=== PATIENT | female | born 1965 ===

== ENCOUNTER 2017-06-17 09:46 | Inpatient (IN) ==
--- NOTE | 2017-06-17 10:35 | Emergency Department Note ---
Flakito Gale Manpreet, am scribing for, and in the presence of, Geronimo Barnes MD 10:21. Molly Gale Phillip K, MD, personally performed the services described in this documentation, ascribed by Vaughn Fraga in my presence, and it is both accurate and complete . Arrival - Arrival Chief Complaint: Shortness of Breath Stated Complaint: Shortness of Breath ED Nursing Triage Note: Patient complains of shortness of breath. Patient states that her blood sugar was too high. Patient also complains of left arm pain. States that it was relieved with Nitro and ASA. Was transferred to [facility] from [facility]. Blood sugar enroute was 321. Mode of Arrival: Stretcher Limitations: No Limitations Source: Patient - History of Present Illness HPI Narrative: Pt is a 51 y/o female, with PMHx of HTN, CHF, CAD, and IDDM, who was transferred from [facility] for further evaluation. Pt c/o SOB that began last night and left arm pain and CP that was relieved with NTG and ASA, but the SOB persisted. Pt had a sugar of 585, BNP of 11,632, creatinine of 2.8, and a nml troponin at [facility]. Pt was administered IV insulin and Lasix at [place]. Pt denies any cough, fever, or chills. Pt takes Lasix qd and is complaint with her medications. 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 No other pains/ complaints reported to ED. Onset (ago): hour(s) Consistency: constant Severity: moderate Severity scale (1-10): 3 Date of Last Menstrual Period: 05/25/16 Allergies/Adverse Reactions: Allergies Allergy/AdvReac Type Severity Reaction Status Date / Time No Known Allergies Allergy Verified 07/11/16 06:58 Home Medications: Home Medications Medication Instructions Recorded Confirmed Type Furosemide Tab [Lasix Tab] 20 mg PO DAILY 06/17/17 06/17/17 History Gabapentin 300 mg PO BID 06/17/17 06/17/17 History Insulin Detemir [Levemir FlexPen] 60 unit SUBCUT BEDTIME 06/17/17 06/17/17 History Review of System - Review of System 12 point system: reviewed and no additional remarkable complaints except as stated - Review of System Constitutional: Absent: chills, diaphoresis, fever Respiratory: Present: respiratory distress. Absent: cough Cardiovascular: Present: chest pain (Tight CP). Absent: dyspnea on exertion Gastrointestinal: Absent: abdominal pain, nausea, vomiting Musculoskeletal: Present: arm pain (Left arm pain) Neurological: Absent: headache, weakness Medical,Surgical,& Family Hx - Medical History Cardio: History of: CHF, Hypertension Endocrine: History of: Diabetes Mellitus (IDDM) - Social History Smoking Status: Never smoker Frequency of Alcohol Use: None Type of Drug Use: None Exam Vital Signs: Vital Signs Temperature 97.1 F L 06/17/17 09:49 Pulse Rate 80 06/17/17 09:49 Respiratory Rate 20 06/17/17 10:01 Blood Pressure 150/78 06/17/17 09:49 O2 Sat by Pulse Oximetry 100 06/17/17 09:49 - General General appearance: alert, in no apparent distress - Head Head exam: Present: atraumatic, normocephalic, normal inspection - Eye Eye exam: Present: normal appearance, PERRL, EOMI - ENT ENT exam: Present: normal exam, normal oropharynx, mucous membranes moist, TM's normal bilaterally - Neck Neck exam: Present: normal inspection, full ROM, trachea midline. Absent: tenderness, thyromegaly - Chest Chest inspection: Present: normal inspection, symmetric chest wall rise. Absent : tenderness - Respiratory Respiratory exam: Present: normal lung sounds bilaterally, rales (Bibasal rales) . Absent: accessory muscle use, respiratory distress - Cardiovascular Cardiovascular exam: Present: regular rate, normal rhythm, normal heart sounds. Absent: murmur, rubs, gallop - Abdominal Exam Abdominal exam: Present: soft, tenderness (Upper epigastric tenderness to palpation), normal bowel sounds. Absent: distention - Extremities Exam Extremities exam: Present: full ROM, other (Bilat +2 edema ). Absent: normal inspection - Back Exam Back exam: Present: normal inspection, full ROM. Absent: tenderness - Neurological Exam Neurological exam: Present: alert, oriented X3, CN II-XII intact, reflexes normal - Psychiatric Psychiatric exam: Present: normal affect, normal mood - Skin Skin exam: Present: warm, dry, intact, normal color. Absent: pallor Course Course Narrative: Accu-Chek glucose is 289. Patient discussed with the hospitalist who will admit for further evaluation. Patient apparently received Lasix at [facility] but has had no urine output since that time. She also received 10 units of Humulin R IV. Results - Labs Lab Results: I have reviewed the patients labs (I reviewed the patient's labs from [facility]. Patient had a glucose that was nonfasting 585, creatinine was 2.8, troponin was 0 and her BNP was 11,632) Labs: Laboratory Tests 06/17/17 10:42 POC Glucose 289 H - Diagnostic Findings Procedure: Chest x-ray: report reviewed by me (Cardiomegaly with slight worsening of perihilar and basilar interstitial and airspace opacities suggestive of pulmonary edema changes and basilar atelectasis. Trace pleural effusions are also suspected.) Disposition Clinical Impression: Congestive heart failure, Poorly controlled diabetes mellitus, Chest pain, Possible angina Case discussed with: patient Disposition: Still a Patient Condition: Guarded Additional Instructions: Admit to the hospitalist.
--- NOTE | 2017-06-17 10:55 | Hospitalist History & Physical ---
Assessment and Plan - Time spent with patient Time spent with patient: Greater than 30 minutes (1) Chest pain Status: Acute Assessment and plan: will admit on monitor bed. Will order PRN pain medications and repeat Troponin, EKG and labs. Current Visit: Yes (2) Congestive heart failure Status: Acute Assessment and plan: Patient verbalizes taking daily lasix. She received a dose at [facility]. Will continue her lasix and repeat a.m. labs to monitor electrolytes closely. Current Visit: Yes (3) Poorly controlled diabetes mellitus Status: Acute Assessment and plan: Will check A1c. will continue home medications and sliding scale. Current Visit: Yes History of Present Illness Chief complaint: shortness of breath, chest pain History of present illness: Ms. Myers is a very pleasant 51 year old [place] female with history of CHF, HTN, CAD, Diabetes, presented to [facility] ED as a transfer from [facility] for further evaluation for worsening of shortness of breath and chest pain with left sided arm pain that was relieved with nitro and ASA this a.m. but shortness of breath continued. Patient verbalized she went to a birthday alliance party yesterday and over ate, especially birthday cake; and started feeling poorly around midnight. AT [facility] her blood sugar was 585, BNP 11,230, Creatnine 2.8 and normal troponin; she was given IV lasix and insulin. She denies fever, chills or cough. Primary PCP: [facility]. 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 She believes she has seen Dr Baptiste for " kidney problems" before but unsure. She had an appointment to see someone in [place] for her chronic back pain/weakness issues for Saturday but missed the appointment because her "daughter went to the casino and did not want to take her to her appointment". She verbalized she can walk but uses a wheelchair because she frequently falls related to "thinning bone in her back". After discussion with Dr Barnes in the ED and Dr Blum Hospitalist Services, it was agreed that the patient would need to be admitted and further evaluated. Will review home medications and reconciliation to follow. Home Medications Medication Instructions Recorded Confirmed Type Furosemide Tab [Lasix Tab] 20 mg PO DAILY 06/17/17 06/17/17 History Gabapentin 300 mg PO BID 06/17/17 06/17/17 History Insulin Detemir [Levemir FlexPen] 60 unit SUBCUT BEDTIME 06/17/17 06/17/17 History Allergies Allergy/AdvReac Type Severity Reaction Status Date / Time No Known Allergies Allergy Verified 07/11/16 06:58 Medical,Surgical,& Family Hx - Medical History Cardio: History of: CHF, Hypertension Endocrine: History of: Diabetes Mellitus (IDDM) - Surgical History Abdominal Surgeries: Surgical HX of: Cholecystectomy Reproductive Surgeries: Surgical HX of;: Section (x5 c-sections) - Social History Smoking Status: Never smoker Frequency of Alcohol Use: None Type of Drug Use: None Lives With:: Children Functional capacity: wheelchair bound (she states she can walk but due to her issues with her back she falls frequently.) Review of systems: ROS completed and pertinent positives and negatives in HPI. Exam - Constitutional Vitals: Period Temp Pulse Resp BP Sys/[place] Pulse Ox Last 24 Hr 97.1 F 80 18-20 150/78 100 General appearance: no acute distress, over weight - Head Head exam: Present: normal inspection - Eye Eye exam: Present: EOMI Pupils: Present: DAHIANA - Neck Neck exam: Present: normal inspection - Respiratory Respiratory exam: Present: rales - Cardiovascular Cardiovascular exam: Present: regular rate and rhythm - GI/Abdominal GI/Abdominal exam: Present: normal bowel sounds, soft. Absent: tenderness, rebound - Extremities Exam Extremities exam: Present: full ROM, edema (2+ edema lower extremities) - Neurological Exam Neurological exam: Present: alert, oriented X3 - Psychiatric Psychiatric exam: Present: normal affect, normal mood - Skin Skin exam: Present: normal color, warm, dry Results - Labs Lab Results: I have reviewed the past 24 hour labs Labs: Labs from [facility] Normal troponin BNP 70825 Hct 32 WBC 7.1
--- NOTE | 2017-06-17 10:55 | XRay Report ---
Exam: XR chest 1V portable Indication: Shortness of breath, cardiomegaly Comparison study: 06/17/2017 and 07/11/2016 chest radiograph performed the [facility] Findings: Cardiac silhouette is enlarged, similar prior. There is been development of multifocal bilateral perihilar and basilar interstitial and airspace opacities suggestive of developing pulmonary edema. Multifocal infectious/inflammatory infiltrates are not excluded but favored to be less likely. Upper lobe pulmonary vasculature is apparent but not significantly engorged. Impression: Cardiomegaly with slight worsening of perihilar and basilar interstitial and airspace opacities suggestive of pulmonary edema changes and basilar atelectasis. Trace pleural effusions are also suspected. PROCEDURE INTERPRETED AT [facility] DEPARTMENT OF RADIOLOGY Final Report Signed by: Alexys Zuniga
[2017-06-17] MEDS ORDERED: GLUCAGON 1 MG VIAL IM PRN (11:16)
[2017-06-17] MEDS ORDERED: ONDANSETRON 4 MG/2 ML VIAL IV PRN (11:16)
[2017-06-17] MEDS ORDERED: DEXTROSE 50% 25 GM/50 ML VIAL IV PRN (11:16)
[2017-06-17] MEDS ORDERED: ACETAMINOPHEN 325 MG TABLET PO PRN (11:16)
[2017-06-17] MEDS ORDERED: MAGNESIUM SULF RIDER 2 GM in PREMIX 1 EACH IV PRN (11:20)
[2017-06-17] MEDS ORDERED: MAGNESIUM SULF RIDER 4 GM in PREMIX 1 EACH IV PRN (11:20)
[2017-06-17] MEDS: FUROSEMIDE 100 MG/10 ML VIAL IV SCH (16:22)
[2017-06-17] MEDS: INSULIN LISPRO 100 UNIT/ML SUBCUT SCH (17:44)
--- NOTE | 2017-06-17 18:01 | Cardiology Consult Note ---
Fletcher Gale Vanessa RN, am scribing for, and in the presence of, Stephanie Oliva DO 17 :46. Assessment and Plan - Time spent with patient Time spent with patient: Greater than 30 minutes (Due to assessment, planning, documentation, and medication review) (1) Congestive heart failure Status: Acute Assessment and plan: Acute on chronic systolic congestive heart failure with severely reduced EF 25- 30% per echocardiogram in April 2017. The patient states that she has known about this for 2-3 years and has chosen not to see cardiology. She will need a C at some time. Completely assess renal disease before knowing the risk of contrast exposure. Current Visit: Yes Qualifiers: Congestive heart failure type: combined Congestive heart failure chronicity : acute on chronic Qualified Code(s): I50.43 - Acute on chronic combined systolic (congestive) and diastolic (congestive) heart failure (2) Chest pain Status: Acute Assessment and plan: Chest pain has resolved at this time. Clinically, no findings for ACS. Current Visit: Yes (3) Poorly controlled diabetes mellitus Status: Chronic Assessment and plan: Glucose greater than 500 at [facility]. She has received IV and subcutaneous insulin. Current glucose 241. Continue SSI. Defer primary management to hospital medicine. Current Visit: Yes (4) Hypertension Status: Chronic Assessment and plan: Suboptimally controlled. Will adjust antihypertensive medication as medical condition evolves. Current Visit: Yes (5) Renal insufficiency Status: Acute Assessment and plan: Chronicity of this is unknown. Patient currently has a creatinine of 2.8. We will carefully diurese and avoid nephrotoxic agents at this time. Nephrology has also been consulted for evaluation. 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 Myers is a 51 year old female with risk factors significant for: hypertension, coronary artery disease, diabetes, obesity. Patient has a history of renal insufficiency and has seen Dr. Baptiste in the past for this. She also has a history of systolic congestive heart failure with severely reduced EF of 25-30% per echocardiogram in April 2017. Patient was admitted to [facility] earlier today as transfer from [facility] for further evaluation of shortness of breath. Patient initially presented to [facility] after she experienced significant severe shortness of breath overnight last night which kept her awake until she called EMS about 2 AM. She also reported she was having some chest pain with left arm radiation. At [facility], cardiac biomarkers were normal. BNP 11,632. Creatinine 2.8. Glucose 585. Ms. Myers reported compliance with her medication. Prior to arrival at [facility], she did receive IV Lasix and insulin at [facility]. Cardiology is now consulted for further evaluation of CHF. Ms. Myers is awake and in no acute respiratory distress this afternoon, and she is eating lunch without difficulty. Patient reports she has voided once since receiving IV Lasix at [facility]. Reports she feels better now that she is using supplemental oxygen. Denies current chest pain. Patient reports she felt fairly well and was not experiencing any shortness of breath or other complaint last night before she attended her daughter's birthday constitution party. While in attendance at her daughter's birthday constitution party, patient reports that she "just stuffed myself with food and went back for lots of seconds." Once she returned home, patient began to notice she did not feel well, felt nauseated and short of breath. This began to worsen throughout the night, and around 2 AM she called her son to take her to the hospital. Ms. Myers feels the edema of right lower extremity may be somewhat improved, but she cannot tell an improvement of left lower extremity. Bilateral lower extremities with 2-3+ pitting benjy, nontender to touch but she does report she has decreased feeling of her feet. EKG and cardiac monitoring demonstrates sinus rhythm, pulse rate 70s, no overt ectopy or dysrhythmia. BP 155/80. Oxygen saturations are 100% on 2L/NC. Tate zone troponin 2 at [facility] of 0.039 and 0.023. Glucose 241. Chest x-ray taken this morning while in [facility] ER shows cardiomegaly, pulmonary edema and bibasilar atelectasis with trace pleural effusions suspected. CC: Marcos Blmu MD - Home Medications and Allergies Home Medications: Home Medications Medication Instructions Recorded Confirmed Type Furosemide Tab [Lasix Tab] 20 mg PO DAILY 06/17/17 06/17/17 History Gabapentin 300 mg PO BID 06/17/17 06/17/17 History Insulin Detemir [Levemir FlexPen] 60 unit SUBCUT BEDTIME 06/17/17 06/17/17 History Allergies/Adverse Reactions: Allergies Allergy/AdvReac Type Severity Reaction Status Date / Time No Known Allergies Allergy Verified 07/11/16 06:58 - Constitutional Constitutional: Present: excessive sweating, frequent falls, lethargy, weakness. Absent: anorexia, chills, daytime sleepiness, fatigue, fever(s), night sweats, weight gain, weight loss - EENT Eyes: Present: blurry vision, requires corrective lense. Absent: loss of vision Ears: Absent: decreased hearing Nose, mouth and throat: Absent: dysphagia, nasal congestion, neck mass, neck pain, throat swelling, tongue swelling, vertigo - Cardiovascular Cardiovascular: Present: chest pain at rest (Chest tightness CAR SHUNTER; none currently ), dyspnea, dyspnea on exertion, edema (2-3+ pitting bilateral lower extremity edema), orthopnea, PND. Absent: diaphoresis, radiating jaw, neck or arm pain, lightheadedness, palpitations - Respiratory Respiratory: Present: dyspnea, dyspnea on exertion. Absent: cough, hemoptysis, pain on inspiration, change in phlegm color - Gastrointestinal Gastrointestinal: Absent: abdominal pain, constipation, diarrhea, dysphagia, early satiety, heartburn, hematemesis, melena, nausea, vomiting, jaundice - Genitourinary Genitourinary: Absent: dysuria, flank pain, hematuria - Musculoskeletal Musculoskeletal: Present: arthralgias, back pain, myalgias. Absent: limited range of motion - Neurological Neurological: Absent: abnormal gait, abnormal speech, confusion, convulsions, dizziness, frequent falls, syncope, tremor(s) - Psychiatric Psychiatric: Absent: anxiety, depression - Endocrine Endocrine: Absent: cold intolerance, heat intolerance - Hematologic/Lymphatic Hematologic/Lymphatic: Absent: easy bleeding, easy bruising Medical,Surgical,& Family Hx - Medical History Cardio: History of: CHF, Hypertension No history of: OR, Pacemaker, PVD Neurology: No history of: Dementia, Seizures, TIA Endocrine: History of: Diabetes Mellitus (IDDM) No history of: Dyslipidemia, Thyroid Disorder Respiratory: No history of: COPD, Obstructive Sleep Apnea, Pulmonary Hypertension Genitourinary: No history of: Kidney Stones Gastrointestinal: No history of: GERD, Gastrointestinal Bleed, Hematochezia, Hepatitis Musculoskeletal: History of: Back/Neck Problems (pt states she has a "thinning bone in her back") Hematology: No history of: Anemia, Blood Transfusion Reaction, Clotting Problems Reproductive: No history of: Breast Cancer Other: No history of: Cancer, HIV - Surgical History Cardiac Surgeries: Patient Denies: Cardiac Catheterization Thoracic Surgeries: Patient denies;: Kidney (Renal Surgery) HEENT Surgeries: Patient denies: Carotid Endarterectomy Abdominal Surgeries: Surgical HX of: Cholecystectomy Reproductive Surgeries: Surgical HX of;: Section (x5 c-sections) Orthopedic Surgeries: Patient denies;: Implanted Devices - Social History Smoking Status: Never smoker Frequency of Alcohol Use: None Type of Drug Use: None Lives With:: Children Functional capacity: wheelchair bound (Reports she is able to walk but loses her balance frequently due to back problems) Physical Examination Vital Signs Temp Pulse Resp BP Pulse Ox 97.1 F L 80 18 150/78 100 06/17/17 09:49 06/17/17 09:49 06/17/17 09:49 06/17/17 09:49 06/17/17 09:49 General: Present: No Apparent Distress, Other (Obese) HEENT: Present: PERRL, Normocephaly. Absent: Jaundice, Oral Lesions Neck: Present: Supple Neck, Midline Trachea, No JVD/HJR, No Bruit Cardiac: Present: Reg Rate and Rhythm, No Murmur. Absent: Tachycardia, Bradycardia Lungs: Present: Bibasilar Rales, No Wheezes, No Rhonchi Neuro: Present: Grossly Intact. Absent: Numbness, Tingling, Weakness, Resting Tremor, Essential Tremor Abdomen: Present: Soft, Active Bowel Sounds (Obese), No Masses, Other. Absent: Ascites, Tender, Firm, Distended Skin: Present: Clear. Absent: Rash, Suspicious Lesions Musculoskeletal: Present: Decreased Range of Motion Extremities: Present: No Clubbing, No Cyanosis, Normal Upper Extr. Pulses (3+ bilaterally), Normal Lower Extr. Pulses (2+ bilaterally), Edema (2-3+ pitting edema of bilateral lower extremity with RLE slightly greater than L LE), Capillary Refill (Normal), Other (Warm, dry) Result/EKG - Labs Lab Results: I have reviewed the past 24 hour labs Labs: Laboratory Results - last 24 hr 06/17/17 06/17/17 06/17/17 10:42 12:48 12:49 POC Glucose 289 H 241 H Troponin I 0.023 - Diagnostic Findings Procedure: Chest x-ray: image reviewed by me, report reviewed by me - EKG EKG results: interpreted by me, no acute changes EKG shows: sinus rhythm Hazel Gale Shea, DO, personally performed the services described in this documentation, ascribed by Savana Bynum RN in my presence, and it is both accurate and complete .
[2017-06-17] MEDS: GABAPENTIN 300 MG CAPSULE PO SCH (21:06)
[2017-06-17] MEDS: CARVEDILOL 3.125 MG TABLET PO SCH (21:06)
[2017-06-17] MEDS: INSULIN GLARGINE 100 UNIT/ML SUBCUT SCH (22:11)
[2017-06-18 00:56] LABS: Basophils % 0.3 % (0.0-0.8); Eosinophils # 0.3 10*3/uL (0.0-0.87); Eosinophils % 2.7 % (0.00-10.9); Hematocrit 25.6 VOL% (35.7-47.0); Hemoglobin 8.9 GM/DL (12.0-16.0); Immature Granulocytes % 0.5 %; Immature Granulocytes Absolute 0.05 #; Lymphocytes # 2.6 10*3/uL (1.4-4.0); Lymphocytes % 25.1 % (21.3-54.2); Mean Corpuscular HGB Conc 34.8 GM/DL (32-36); Mean Corpuscular Hemoglobin 30 PG (27-34); Mean Platelet Volume 9.5 FL (9.6-12.0); Monocytes # 0.5 10*3/uL (0.11-0.8); Monocytes % 4.8 % (1.7-12.7); Neutrophils % 66.6 % (38.7-73.9); Platelet Count 211 T/CUMM (130-400); Red Blood Count 3.01 MC/CUMM (3.8-5.5); White Blood Count 10.4 T/CUMM (4-12)
[2017-06-18 01:24] LABS: Alanine Aminotransferase 12 U/L (13-56); Albumin 2.1 G/DL (3.4-5.0); Alkaline Phosphatase 150 U/L (45-117); Aspartate Amino Transferase 13 U/L (0-37); Bilirubin,Total < 0.39 MG/DL (0.2-1.0); Blood Urea Nitrogen 35 MG/DL (7-18); Calcium 8.1 MG/DL (8.5-10.1); Glucose 123 MG/DL (74-106); Potassium 3.8 MMOL/L (3.5-5.1); Sodium 136 MMOL/L (136-145); Total Protein 5.8 G/DL (6.4-8.3)
[2017-06-18 01:26] LABS: Magnesium 2.3 MG/DL (1.8-2.4); Risk Ratio 2.86; VLDL CHOLESTEROL 20.6 MG/DL
--- NOTE | 2017-06-18 06:01 | EKG Report ---
Stationary ECG Study [facility] ER Test Date: 06/17/2017 11:28:55 AM Pat Name: JUAN CATALAN Department: Room: 425 Gender: F Tower Watchman: : 1965 Requested by: Geronimo Bonilla Order Number: [id number] Reading MD: GREGORIO MCBRIDE Intervals [place] Rate: 71 P: 6 ID: 148 QRS: 9 QRSD: 92 T: 54 QT: 411 QTc: 433 Interpretive Statements SINUS RHYTHM NONSPECIFIC T-WAVE ABNORMALITY Electronically Signed On 06-18-17 11:31:21 CDT by GREGORIO MCBRIDE [email or web address]
--- NOTE | 2017-06-18 07:24 | EKG Report ---
Stationary ECG Study [facility] Test Date: 06/18/2017 7:26:20 AM Pat Name: JUAN CATALAN Department: Room: 425 Gender: F Senior Management Consultant: : 1965 Requested by: Sandra Soto Order Number: [id number] Reading MD: GREGORIO MCBRIDE Intervals [place] Rate: 79 P: 38 MD: 149 QRS: 48 QRSD: 89 T: 89 QT: 444 QTc: 479 Interpretive Statements SINUS RHYTHM NONSPECIFIC T-WAVE ABNORMALITY PROLONGED QT INTERVAL Electronically Signed On 06-18-17 11:47:19 CDT by GREGORIO MCBRIDE [email or web address]
[2017-06-18] MEDS: INSULIN LISPRO 100 UNIT/ML SUBCUT SCH ×2 (07:35→16:30)
[2017-06-18] MEDS ORDERED: FUROSEMIDE 20 MG TABLET PO SCH (09:00)
[2017-06-18] MEDS: GABAPENTIN 300 MG CAPSULE PO SCH ×2 (09:34→20:13)
[2017-06-18] MEDS: CARVEDILOL 3.125 MG TABLET PO SCH ×2 (09:34→20:13)
[2017-06-18] MEDS: FUROSEMIDE 100 MG/10 ML VIAL IV SCH (09:34)
[2017-06-18] MEDS: PANTOPRAZOLE 40 MG TABLET PO SCH (09:34)
[2017-06-18] MEDS: ASPIRIN CHEW 81 MG TABLET PO SCH (09:36)
--- NOTE | 2017-06-18 10:03 | Cardiology Progress Note ---
Fletcher Gale Vanessa RN, am scribing for, and in the presence of, Stephanie Oliva DO 10 :02. Assessment and Plan - Time spent with patient Time spent with patient: Greater than 30 minutes (1) Congestive heart failure Status: Chronic Assessment and plan: Acute on chronic systolic congestive heart failure with severely reduced EF 25- 30% per echocardiogram in April 2017. Current Visit: Yes Qualifiers: Congestive heart failure type: combined Congestive heart failure chronicity : acute on chronic Qualified Code(s): I50.43 - Acute on chronic combined systolic (congestive) and diastolic (congestive) heart failure (2) Chest pain Status: Chronic Assessment and plan: Chest pain has resolved at this time. Clinically, no findings for ACS. Current Visit: Yes (3) Poorly controlled diabetes mellitus Status: Chronic Assessment and plan: Glucose greater than 500 at [facility]. She has received IV and subcutaneous insulin. Current glucose 241. Continue SSI. Defer primary management to hospital medicine. Current Visit: Yes (4) Hypertension Status: Chronic Assessment and plan: Suboptimally controlled. Will adjust antihypertensive medication as medical condition evolves. Current Visit: Yes (5) Renal insufficiency Status: Acute Assessment and plan: Chronicity of this is unknown. We will carefully diurese and avoid nephrotoxic agents at this time. Nephrology has also been consulted for evaluation. 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 Myers is a 51 year old female with risk factors significant for: hypertension, coronary artery disease, diabetes, obesity. Patient has a history of renal insufficiency and has seen Dr. Baptiste in the past for this. She also has a history of systolic congestive heart failure with severely reduced EF of 25-30% per echocardiogram in April 2017. Patient was admitted to [facility] earlier today as transfer from [facility] for further evaluation of shortness of breath. Patient initially presented to [facility] after she experienced significant severe shortness of breath overnight last night which kept her awake until she called EMS about 2 AM. She also reported she was having some chest pain with left arm radiation. At [facility], cardiac biomarkers were normal. BNP 11,632. Creatinine 2.8. Glucose 585. Ms. Myers reported compliance with her medication. Prior to arrival at [facility], she did receive IV Lasix and insulin at [facility]. Cardiology is now consulted for further evaluation of CHF. May: Ms. Myers has no complaints this morning. I saw and examined with Fletcher. I talked to her briefly and introduce the idea of left heart catheterization selective coronary angiography and possible percutaneous coronary mention. She will need this at some point. Her creatinine is elevated and this appears to be chronic however I would like to ensure that the chronicity of this before proposing left heart catheterization. If his acute I certainly would wait. Her renal ultrasound is pending. Input from nephrology is pending. The patient looks quite stable. She had many questions about left heart catheterization and she seemed reluctant to proceed. I told her that I would readdress again once we determined the chronicity and stability of her renal insufficiency. No further changes at this point. Exam (Progress Note) - Constitutional Vitals: Period Temp Pulse Resp BP Sys/[place] Pulse Ox Last 24 Hr 96.0 F-98.7 F 70-80 16-20 117-158/55-84 94-100 Exam: General: Present: No Apparent Distress, Other (Obese) HEENT: Present: PERRL, Normocephaly. Absent: Jaundice, Oral Lesions Neck: Present: Supple Neck, Midline Trachea, No JVD/HJR, No Bruit Cardiac: Present: Reg Rate and Rhythm, No Murmur. Absent: Tachycardia, Bradycardia Lungs: Present: Bibasilar Rales, No Wheezes, No Rhonchi Neuro: Present: Grossly Intact. Absent: Numbness, Tingling, Weakness, Resting Tremor, Essential Tremor Abdomen: Present: Soft, Active Bowel Sounds (Obese), No Masses, Other. Absent: Ascites, Tender, Firm, Distended Skin: Present: Clear. Absent: Rash, Suspicious Lesions Musculoskeletal: Present: Decreased Range of Motion Extremities: Present: No Clubbing, No Cyanosis, Normal Upper Extr. Pulses (3+ bilaterally), Normal Lower Extr. Pulses (2+ bilaterally), Edema, Capillary Refill (Normal), Other (Warm, dry) Result/EKG - Labs CBC & BMP: 06/18/17 00:49 06/18/17 00:49 Lab Results: I have reviewed the past 24 hour labs Labs: Laboratory Results - last 24 hr 06/17/17 06/17/17 06/17/17 10:42 12:48 12:49 WBC RBC Hgb Hct MCV MCH MCHC RDW Plt Count MPV Neut % (Auto) Lymph % (Auto) [place] % (Auto) Eos % (Auto) Baso % (Auto) Neut # (Auto) Lymph # (Auto) [place] # (Auto) Eos # (Auto) Baso # (Auto) Immature Gran % Nucleated RBC % Immature Gran # Nucleated RBCs # Sodium Potassium Chloride Carbon Dioxide Anion Gap BUN Creatinine GFR Calculation BUN/Creatinine Ratio Glucose POC Glucose 289 H 241 H Hemoglobin A1c Calculated Osmolality Calcium Magnesium Total Bilirubin AST ALT Alkaline Phosphatase Troponin I 0.023 B-Natriuretic Peptide Total Protein Albumin Globulin Albumin/Globulin Ratio Triglycerides Cholesterol LDL Cholesterol VLDL Cholesterol HDL Cholesterol Heart Disease Risk Ratio 06/17/17 06/17/17 06/17/17 17:40 18:21 18:43 WBC RBC Hgb Hct MCV MCH MCHC RDW Plt Count MPV Neut % (Auto) Lymph % (Auto) [place] % (Auto) Eos % (Auto) Baso % (Auto) Neut # (Auto) Lymph # (Auto) [place] # (Auto) Eos # (Auto) Baso # (Auto) Immature Gran % Nucleated RBC % Immature Gran # Nucleated RBCs # Sodium Potassium Chloride Carbon Dioxide Anion Gap BUN Creatinine GFR Calculation BUN/Creatinine Ratio Glucose POC Glucose 236 H 229 H Hemoglobin A1c Calculated Osmolality Calcium Magnesium Total Bilirubin AST ALT Alkaline Phosphatase Troponin I 0.027 B-Natriuretic Peptide Total Protein Albumin Globulin Albumin/Globulin Ratio Triglycerides Cholesterol LDL Cholesterol VLDL Cholesterol HDL Cholesterol Heart Disease Risk Ratio 06/18/17 06/18/17 06/18/17 00:49 00:49 00:49 WBC 10.4 RBC 3.01 L Hgb 8.9 L Hct 25.6 L MCV 85.0 L MCH 30 MCHC 34.8 RDW 13.0 Plt Count 211 MPV 9.5 L Neut % (Auto) 66.6 Lymph % (Auto) 25.1 [place] % (Auto) 4.8 Eos % (Auto) 2.7 Baso % (Auto) 0.3 Neut # (Auto) 7.0 Lymph # (Auto) 2.6 [place] # (Auto) 0.5 Eos # (Auto) 0.3 Baso # (Auto) 0.0 Immature Gran % 0.5 Nucleated RBC % 0.0 Immature Gran # 0.05 Nucleated RBCs # 0.00 Sodium Potassium Chloride Carbon Dioxide Anion Gap BUN Creatinine GFR Calculation BUN/Creatinine Ratio Glucose POC Glucose Hemoglobin A1c Calculated Osmolality Calcium Magnesium 2.3 Total Bilirubin AST ALT Alkaline Phosphatase Troponin I 0.030 B-Natriuretic Peptide Total Protein Albumin Globulin Albumin/Globulin Ratio Triglycerides 103 Cholesterol 189 LDL Cholesterol 103.0 VLDL Cholesterol 20.6 HDL Cholesterol 66 H Heart Disease Risk Ratio 2.86 06/18/17 06/18/17 06/18/17 00:49 00:49 00:49 WBC RBC Hgb Hct MCV MCH MCHC RDW Plt Count MPV Neut % (Auto) Lymph % (Auto) [place] % (Auto) Eos % (Auto) Baso % (Auto) Neut # (Auto) Lymph # (Auto) [place] # (Auto) Eos # (Auto) Baso # (Auto) Immature Gran % Nucleated RBC % Immature Gran # Nucleated RBCs # Sodium 136 Potassium 3.8 Chloride 103 Carbon Dioxide 27 Anion Gap 9.8 BUN 35 H Creatinine 2.70 H GFR Calculation 24 BUN/Creatinine Ratio 12.00 Glucose 123 H POC Glucose Hemoglobin A1c 10.9 H Calculated Osmolality 280.0 Calcium 8.1 L Magnesium Total Bilirubin < 0.39 AST 13 ALT 12 L Alkaline Phosphatase 150 H Troponin I B-Natriuretic Peptide 265 H Total Protein 5.8 L Albumin 2.1 L Globulin 3.7 H Albumin/Globulin Ratio 0.5 L Triglycerides Cholesterol LDL Cholesterol VLDL Cholesterol HDL Cholesterol Heart Disease Risk Ratio 06/18/17 07:20 WBC RBC Hgb Hct MCV MCH MCHC RDW Plt Count MPV Neut % (Auto) Lymph % (Auto) [place] % (Auto) Eos % (Auto) Baso % (Auto) Neut # (Auto) Lymph # (Auto) [place] # (Auto) Eos # (Auto) Baso # (Auto) Immature Gran % Nucleated RBC % Immature Gran # Nucleated RBCs # Sodium Potassium Chloride Carbon Dioxide Anion Gap BUN Creatinine GFR Calculation BUN/Creatinine Ratio Glucose POC Glucose 103 Hemoglobin A1c Calculated Osmolality Calcium Magnesium Total Bilirubin AST ALT Alkaline Phosphatase Troponin I B-Natriuretic Peptide Total Protein Albumin Globulin Albumin/Globulin Ratio Triglycerides Cholesterol LDL Cholesterol VLDL Cholesterol HDL Cholesterol Heart Disease Risk Ratio - EKG EKG results: interpreted by me, no acute changes EKG shows: sinus rhythm IHazel Shea, , personally performed the services described in this documentation, ascribed by Savana Bynum RN in my presence, and it is both accurate and complete .
--- NOTE | 2017-06-18 10:51 | Ultrasound Report ---
History: Renal insufficiency Date: 06/18/2017 Study: Renal ultrasound bilateral, kidneys only Comparison exam: November 20, 2014 renal ultrasound Real-time ultrasound images are captured and archived. The right kidney measures 10.2 x 4.2 x 4.9 cm; the left measures 9.9 x 4.7 x 4.4 cm. The renal parenchyma is hyperechoic to the hepatic parenchyma. There is no focal renal mass or cyst. There is no hydronephrosis or abnormal perinephric fluid. There is gross color Doppler flow to either kidney. Impression: Normal renal ultrasound without significant interval change PROCEDURE INTERPRETED AT [facility] DEPARTMENT OF RADIOLOGY Final Report Signed by: Dr. Polina Valles
--- NOTE | 2017-06-18 12:12 | Hospitalist Progress Note ---
Assessment and Plan (1) Congestive heart failure Status: Chronic Assessment and plan: Patient was admitted to the hospital with pulmonary edema. This has improved after some aggressive diuresis in the last [address] Kimball discussed coronary arteriogram with the patient and I reviewed his discussion with her. Her understanding of the arteriogram was very basic and I was able to give her some additional information concerning aware of the catheter will be inserted and what information that she would benefit from. The patient continues on diuresis today and I am going to reduce frequency of the Lasix to once daily. Will recheck electrolytes tomorrow. Nephrology consultation still pending. Current Visit: Yes Qualifiers: Congestive heart failure type: combined Congestive heart failure chronicity : acute on chronic Qualified Code(s): I50.43 - Acute on chronic combined systolic (congestive) and diastolic (congestive) heart failure (2) Poorly controlled diabetes mellitus Status: Chronic Current Visit: Yes (3) Hypertension Status: Chronic Current Visit: Yes (4) Renal insufficiency Status: Acute Current Visit: Yes Hospitalist: Subjective Interval history: The patient has less shortness of breath today. She is not complaining of chest pain. The patient states that when she was short of breath yesterday she had some palpitation. She is not having palpitation today. Exam - Constitutional Vitals: Period Temp Pulse Resp BP Sys/[place] Pulse Ox Last 24 Hr 96.0 F-98.8 F 70-83 16-20 117-158/55-84 94-100 Exam: Constitutional System: Mild distress. No tremulousness. Head: Normocephalic, atraumatic. Ears, Nose and Throat System: No evidence of Otitis or Mastoiditis. No epistaxis or discharge Eyes System: Pupils equal, round, and reactive. Extraocular muscles intact. Neck: Supple, without adenopathy, 1+ jugular venous distention. No thyromegaly , neck mass, or prior surgery apparent. Respiratory System: Chest few rales in bases to auscultation. Cardiovascular System: Heart with regular rate and rhythm. No murmur. GI System: Abdomen soft, nontender. Normo active bowel sounds present. Musculoskeletal System: limbs with no pedal edema. Full distal pulses. Neurological System: No discernable sensory deficit. No aphasia Psychiatric System: Conversation is rational Results - Labs CBC & BMP: 06/18/17 00:49 06/18/17 00:49 Lab Results: I have reviewed the past 24 hour labs
--- NOTE | 2017-06-18 14:45 | Nephrology Consult Note ---
History of Present Illness Chief complaint: Increased BUN and creatinine in a patient with heart failure History of present illness: Ms. Myers is a 51 year old female who was admitted on 06/17/2017 with complaints of shortness of breath. Patient states her shortness of breath started a few days prior to admission. She states that started when she is sitting up and this worsened with exertion although she does not exert herself very much as she is wheelchair bound. The patient has had some associated cough. She denies fever or chills. The patient states about a month ago she was in the hospital and developed some similar complaints with swelling in her lower extremities as well as some associated shortness of breath. Patient has a known ejection fraction of around 25% by echocardiogram. The patient also has a history of chronic renal disease her creatinine was around 1.5-1.7 mg/dL 2 years ago. The patient was also seen by Dr. Baptiste recently. The patient has about a 5 year history of diabetes, she denies hypertension. The patient thinks that she overindulged and fluid intake over the weekend and feels that this made her short of breath. ROS: Head -positive headaches ENT -positive sore throat Lymphatics - denies lymphadenopathy Hematology - denies bleeding problems Heart - denies chest pain Lungs -positive shortness of breath Abdomen - denies abdominal pain Musculoskeletal -positive arthritis Skin - denies rash Neurology - denies stroke General - denies fever PE: General: in no acute distress Eyes: Pupils are round and reactive, conjunctivae are clear ENT: Nose is clear, O/P is benign Neck: Supple, no thyromegaly Lymphatics: No cervical, supraclavicular or axillary adenopathy Heart: Regular rate and rhythm, 2+ pretibial edema Lungs: Clear to auscultation anteriorly, chest expansion symmetric Abdomen: Soft, normoactive bowel sounds, no hepatomegaly Musculoskeletal: No joint erythema or effusions or joint asymmetry Skin: Normal turgor, normal hydration, no rash Neuro/Psych: Alert and cooperative with fair insight Home Medications Medication Instructions Recorded Confirmed Type Furosemide Tab [Lasix Tab] 20 mg PO DAILY 06/17/17 06/17/17 History Gabapentin 300 mg PO BID 06/17/17 06/17/17 History Insulin Detemir [Levemir FlexPen] 60 unit SUBCUT BEDTIME 06/17/17 06/17/17 History Allergies Allergy/AdvReac Type Severity Reaction Status Date / Time No Known Allergies Allergy Verified 07/11/16 06:58 Medical,Surgical,& Family Hx - Medical History Cardio: History of: CHF, Hypertension No history of: [place], Pacemaker, PVD Neurology: No history of: Dementia, Seizures, TIA Endocrine: History of: Diabetes Mellitus (IDDM) No history of: Dyslipidemia, Thyroid Disorder Respiratory: No history of: COPD, Obstructive Sleep Apnea, Pulmonary Hypertension Genitourinary: No history of: Kidney Stones Gastrointestinal: No history of: GERD, Gastrointestinal Bleed, Hematochezia, Hepatitis Musculoskeletal: History of: Back/Neck Problems (pt states she has a "thinning bone in her back") Hematology: No history of: Anemia, Blood Transfusion Reaction, Clotting Problems Reproductive: No history of: Breast Cancer Other: No history of: Cancer, HIV - Surgical History Cardiac Surgeries: Patient Denies: Cardiac Catheterization, Carotid Endarterectomy Thoracic Surgeries: Patient denies;: Kidney (Renal Surgery) HEENT Surgeries: Patient denies: Carotid Endarterectomy Abdominal Surgeries: Surgical HX of: Cholecystectomy Reproductive Surgeries: Surgical HX of;: Section (x5 c-sections) Orthopedic Surgeries: Patient denies;: Implanted Devices - Family History Family History: Reports;: Family Diabetes, Family Hypertension Additional Family History: End-stage renal disease - Social History Smoking Status: Never smoker Frequency of Alcohol Use: None Type of Drug Use: None Exam - Vital Signs Vital signs: Period Temp Pulse Resp BP Sys/[place] Pulse Ox Last 24 Hr 96.2 F-98.8 F 70-83 16-20 117-148/55-71 94-100 Results - Labs CBC & BMP: 06/18/17 00:49 06/18/17 00:49 Assessment and Plan (1) Chronic kidney disease Status: Acute Assessment and plan: This patient's creatinine is 2.7 mg/dL he was around 1.7 mg/dL 2 years ago, I am going to try and get [facility] past 6 months to a year. I suspect she has chronic renal insufficiency stage III disease. Current Visit: Yes (2) Diabetes mellitus Status: Acute Current Visit: Yes (3) Congestive heart failure Status: Chronic Assessment and plan: I agree with the present diuresis. Regarding her heart catheter think it would be best to try on get her out of heart failure first. If he does have a heart cath I think we would do well to hold her diuretics and give her some IV fluids at a cc per KG starting about 12 hours before the proposed procedure and continue them for about 6-8 hours post procedure. I would also give her Mucomyst 600 mg p.o. twice daily 2 doses before and 2 doses after the procedure. Current Visit: Yes Qualifiers: Congestive heart failure type: combined Congestive heart failure chronicity : acute on chronic Qualified Code(s): I50.43 - Acute on chronic combined systolic (congestive) and diastolic (congestive) heart failure (4) Anemia Status: Acute Assessment and plan: Patient's hematocrits around 25% Current Visit: Yes (5) Cardiomyopathy Status: Acute Assessment and plan: Patient's ejection fraction was known to be around 25% Current Visit: Yes
[2017-06-18] MEDS: INSULIN GLARGINE 100 UNIT/ML SUBCUT SCH (20:16)
[2017-06-19 05:26] LABS: Calcium 7.4 MG/DL (8.5-10.1); Magnesium 2.5 MG/DL (1.8-2.4); Osmolality,Calculated 290.8 MOS/KG (273-304)
--- NOTE | 2017-06-19 08:58 | Nephrology Progress Note ---
Nephrology - PN: Subj Interval history: Patient states she is breathing better. Review of systems GI she denies nausea or vomiting Physical exam general patient chronically ill-appearing, she has 1+ pretibial edema Assessment/plan 1. Acute renal failure-patient's creatinine is increased from 2.8 mg/dL to 3.1 mg/dL today, I suspect this is related to her needed diuresis in the face of her poor heart function with an ejection fraction of around 25%. Her Lasix was decreased yesterday. It is difficult to say whether back off her Lasix further today we will continue her diuresis. I will check a chest x- ray and see if this helps us. Will also try and get her weight today and monitor her I/O's better. 2. Cardiomyopathy 3. Anemia-patient's hematocrits 26%, it may be worth transfusing her couple units of blood pending the results of her chest x-ray. Exam (PN)-Nephrology - Vital Signs Vital signs: Period Temp Pulse Resp BP Sys/[place] Pulse Ox Last 24 Hr 97.8 F-98.8 F 69-83 20-20 119-187/60-86 93-98 - Lab 06/18/17 00:49 06/19/17 04:04 Most recent lab results Calcium 7.4 MG/DL (8.5-10.1) L 06/19/17 04:04 Magnesium 2.5 MG/DL (1.8-2.4) H 06/19/17 04:04 Assessment and Plan (1) Chronic kidney disease Status: Acute Assessment and plan: This patient's creatinine is 2.7 mg/dL he was around 1.7 mg/dL 2 years ago, I am going to try and get some lab from the [facility] from past 6 months to a year. I suspect she has chronic renal insufficiency stage III disease. Current Visit: Yes (2) Diabetes mellitus Status: Acute Current Visit: Yes (3) Congestive heart failure Status: Chronic Assessment and plan: I agree with the present diuresis. Regarding her heart catheter think it would be best to try on get her out of heart failure first. If he does have a heart cath I think we would do well to hold her diuretics and give her some IV fluids at a cc per KG starting about 12 hours before the proposed procedure and continue them for about 6-8 hours post procedure. I would also give her Mucomyst 600 mg p.o. twice daily 2 doses before and 2 doses after the procedure. Current Visit: Yes Qualifiers: Congestive heart failure type: combined Congestive heart failure chronicity : acute on chronic Qualified Code(s): I50.43 - Acute on chronic combined systolic (congestive) and diastolic (congestive) heart failure (4) Anemia Status: Acute Assessment and plan: Patient's hematocrits around 25% Current Visit: Yes (5) Cardiomyopathy Status: Acute Assessment and plan: Patient's ejection fraction was known to be around 25% Current Visit: Yes
[2017-06-19] MEDS: GABAPENTIN 300 MG CAPSULE PO SCH ×2 (10:01→20:22)
[2017-06-19] MEDS: FUROSEMIDE 100 MG/10 ML VIAL IV SCH (10:01)
[2017-06-19] MEDS: PANTOPRAZOLE 40 MG TABLET PO SCH (10:01)
[2017-06-19] MEDS: ASPIRIN CHEW 81 MG TABLET PO SCH (10:01)
[2017-06-19] MEDS: CARVEDILOL 3.125 MG TABLET PO SCH ×2 (10:01→20:22)
[2017-06-19] MEDS: INSULIN LISPRO 100 UNIT/ML SUBCUT SCH ×2 (10:04→18:31)
--- NOTE | 2017-06-19 10:49 | XRay Report ---
XR chest 2V Indication: Shortness of breath Comparison: 17 June 2017 Findings: The heart and mediastinum are stable in size and configuration. The pulmonary vascularity is slightly increased with bilateral increased interstitial lung density. No other lung infiltrates, effusions, pneumothorax or other abnormality is demonstrated. Impression: Findings suggest mild cardiac decompensation. PROCEDURE INTERPRETED AT [facility] DEPARTMENT OF RADIOLOGY Final Report Signed by: Dr. Curt Fountain
--- NOTE | 2017-06-19 12:00 | Cardiology Progress Note ---
Fletcher Gale Vanessa RN, am scribing for, and in the presence of, Stephanie Oliva, DO 12 :00. Assessment and Plan - Time spent with patient Time spent with patient: Greater than 30 minutes (1) Congestive heart failure Status: Chronic Assessment and plan: Acute on chronic systolic congestive heart failure with severely reduced EF 25- 30% per echocardiogram in April 2017. As per HPI. This is a very high risk situation the patient is reluctant to proceed. It may be that she is best discharged home and is electively as an outpatient once her comorbidities have stabilized Current Visit: Yes Qualifiers: Congestive heart failure type: combined Congestive heart failure chronicity : acute on chronic Qualified Code(s): I50.43 - Acute on chronic combined systolic (congestive) and diastolic (congestive) heart failure (2) Chest pain Status: Chronic Assessment and plan: Chest pain has resolved at this time. Clinically, no findings for ACS. Current Visit: Yes (3) Poorly controlled diabetes mellitus Status: Chronic Assessment and plan: Glucose greater than 500 at [facility]. She has received IV and subcutaneous insulin. Current glucose 241. Continue SSI. Defer primary management to hospital medicine. Current Visit: Yes (4) Hypertension Status: Chronic Assessment and plan: Suboptimally controlled. Will adjust antihypertensive medication as medical condition evolves. Current Visit: Yes (5) Renal insufficiency Status: Acute Assessment and plan: Chronicity of this is unknown. Patient currently has a creatinine of 2.8. We will carefully diurese and avoid nephrotoxic agents at this time. Nephrology has also been consulted for evaluation. 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 Myers is a 51 year old female with risk factors significant for: hypertension, coronary artery disease, diabetes, obesity. Patient has a history of renal insufficiency and has seen Dr. Baptiste in the past for this. She also has a history of systolic congestive heart failure with severely reduced EF of 25-30% per echocardiogram in April 2017. Patient was admitted to [facility] earlier today as transfer from [facility] for further evaluation of shortness of breath. Patient initially presented to [facility] after she experienced significant severe shortness of breath overnight last night which kept her awake until she called EMS about 2 AM. She also reported she was having some chest pain with left arm radiation. At [facility], cardiac biomarkers were normal. BNP 11,632. Creatinine 2.8. Glucose 585. Ms. Myers reported compliance with her medication. Prior to arrival at [facility], she did receive IV Lasix and insulin at [facility]. Cardiology is now consulted for further evaluation of CHF. May: Ms. Myers is feeling overall better this morning. Awake and alert, and family members are present with her at bedside. No chest pain and reports her shortness of breath continues to improve. Again discussed heart catheterization procedure with patient including risks, benefits, alternatives. She is hesitant at this area, and she wants to think it over today. Labs reviewed, and it is noted that her creatinine has trended upward and is 3.1 today. Vitals are stable with SBP ranging 120-140 mmHg. Cardiac monitoring demonstrates sinus rhythm with no overt ectopy or dysrhythmia. Electrolytes are within acceptable range. Bilateral lower extremity edema continues to improve. Continue to follow her creatinine. We will hold her n.p.o. tonight. I doubt she will be ready for tomorrow. Exam (Progress Note) - Constitutional Vitals: Period Temp Pulse Resp BP Sys/[place] Pulse Ox Last 24 Hr 97.8 F-98.8 F 69-83 20-20 119-187/60-86 93-98 Exam: General: Present: No Apparent Distress, Other (Obese) HEENT: Present: PERRL, Normocephaly. Absent: Jaundice, Oral Lesions Neck: Present: Supple Neck, Midline Trachea, No JVD/HJR, No Bruit Cardiac: Present: Reg Rate and Rhythm, No Murmur. Absent: Tachycardia, Bradycardia Lungs: Present: Bibasilar Rales, No Wheezes, No Rhonchi Neuro: Present: Grossly Intact. Absent: Numbness, Tingling, Weakness, Resting Tremor, Essential Tremor Abdomen: Present: Soft, Active Bowel Sounds (Obese), No Masses, Other. Absent: Ascites, Tender, Firm, Distended Skin: Present: Clear. Absent: Rash, Suspicious Lesions Musculoskeletal: Present: Decreased Range of Motion Extremities: Present: No Clubbing, No Cyanosis, Normal Upper Extr. Pulses (3+ bilaterally), Normal Lower Extr. Pulses (2+ bilaterally), Edema, Capillary Refill (Normal), Other (Warm, dry). 2+ pretibial edema. Result/EKG - Labs CBC & BMP: 06/18/17 00:49 06/19/17 04:04 Lab Results: I have reviewed the past 24 hour labs Labs: Laboratory Results - last 24 hr 06/18/17 06/18/17 06/18/17 10:34 16:12 18:58 Sodium Potassium Chloride Carbon Dioxide Anion Gap BUN Creatinine GFR Calculation BUN/Creatinine Ratio Glucose POC Glucose 191 H 188 H 194 H Calculated Osmolality Calcium Magnesium B-Natriuretic Peptide 06/19/17 06/19/17 06/19/17 04:04 04:04 08:08 Sodium 137 Potassium 4.0 Chloride 104 Carbon Dioxide 24 Anion Gap 13.0 BUN 42 H Creatinine 3.10 H GFR Calculation 20 BUN/Creatinine Ratio 13.00 Glucose 216 H POC Glucose 235 H Calculated Osmolality 290.8 Calcium 7.4 L Magnesium 2.5 H B-Natriuretic Peptide 205 H - EKG EKG results: interpreted by me, no acute changes EKG shows: sinus rhythm I, Stephanie Oliva, , personally performed the services described in this documentation, ascribed by Savana Bynum RN in my presence, and it is both accurate and complete .
--- NOTE | 2017-06-19 14:59 | Hospitalist Progress Note ---
Assessment and Plan (1) Congestive heart failure Status: Chronic Assessment and plan: Patient was admitted to the hospital with pulmonary edema. This has improved after some aggressive diuresis in the last [address] Kimball discussed coronary arteriogram with the patient and I reviewed his discussion with her. The patient is amenable to arteriogram. Dr. Torres has evaluated the patient and requested that we delay arteriogram until the acute CHF episode has resolved. The patient continues on daily Lasix and will recheck creatinine tomorrow. The patient will likely be discharged home for follow-up with Dr. Kimball as outpatient. Current Visit: Yes Qualifiers: Congestive heart failure type: combined Congestive heart failure chronicity : acute on chronic Qualified Code(s): I50.43 - Acute on chronic combined systolic (congestive) and diastolic (congestive) heart failure (2) Poorly controlled diabetes mellitus Status: Chronic Current Visit: Yes (3) Hypertension Status: Chronic Current Visit: Yes (4) Renal insufficiency Status: Acute Current Visit: Yes Hospitalist: Subjective Interval history: The patient is resting comfortably in bed today. She complains of minimal shortness of breath although he gets worse with exertion. She complains of swelling of lower extremities. The patient's renal function was worse today as expected with her diuresis. Exam - Constitutional Vitals: Period Temp Pulse Resp BP Sys/[place] Pulse Ox Last 24 Hr 97.6 F-98.3 F 69-80 20-20 119-187/60-86 93-99 Exam: Constitutional System: Mild distress. No tremulousness. Head: Normocephalic, atraumatic. Ears, Nose and Throat System: No evidence of Otitis or Mastoiditis. No epistaxis or discharge Eyes System: Pupils equal, round, and reactive. Extraocular muscles intact. Neck: Supple, without adenopathy, 1+ jugular venous distention. No thyromegaly , neck mass, or prior surgery apparent. Respiratory System: Chest few rales in bases to auscultation. Cardiovascular System: Heart with regular rate and rhythm. No murmur. GI System: Abdomen soft, nontender. Normo active bowel sounds present. Musculoskeletal System: limbs with no pedal edema. Full distal pulses. Neurological System: No discernable sensory deficit. No aphasia Psychiatric System: Conversation is rational Results - Labs CBC & BMP: 06/18/17 00:49 06/19/17 04:04 Lab Results: I have reviewed the past 24 hour labs
[2017-06-19] MEDS: INSULIN GLARGINE 100 UNIT/ML SUBCUT SCH (20:22)
[2017-06-20 06:10] LABS: Calcium 7.6 MG/DL (8.5-10.1); Magnesium 2.5 MG/DL (1.8-2.4); Osmolality,Calculated 284.7 MOS/KG (273-304); Potassium 4.4 MMOL/L (3.5-5.1)
[2017-06-20] MEDS: INSULIN LISPRO 100 UNIT/ML SUBCUT SCH ×2 (08:22→18:16)
[2017-06-20] MEDS ORDERED: DEXTROSE 50% 25 GM/50 ML SYRINGE IV ONE (08:30)
[2017-06-20] MEDS ORDERED: INSULIN GLARGINE 100 UNIT/ML SUBCUT SCH (11:08)
--- NOTE | 2017-06-20 11:10 | Hospitalist Progress Note ---
Assessment and Plan (1) Congestive heart failure Status: Chronic Assessment and plan: Patient was admitted to the hospital with pulmonary edema. This has improved after some aggressive diuresis. Dr. Kimball discussed coronary arteriogram with the patient and I reviewed his discussion with her. The patient is amenable to arteriogram. Dr. Torres has evaluated the patient and requested that we delay arteriogram until the acute CHF episode has resolved. The patient continues on daily Lasix and will recheck creatinine tomorrow. I am going to discontinue IV and restart the patient's oral Lasix. The patient will likely be discharged home tomorrow for follow-up with Dr. Kimball as outpatient. Current Visit: Yes Qualifiers: Congestive heart failure type: combined Congestive heart failure chronicity : acute on chronic Qualified Code(s): I50.43 - Acute on chronic combined systolic (congestive) and diastolic (congestive) heart failure (2) Poorly controlled diabetes mellitus Status: Chronic Current Visit: Yes (3) Hypertension Status: Chronic Current Visit: Yes (4) Renal insufficiency Status: Acute Current Visit: Yes Hospitalist: Subjective Interval history: The patient is resting comfortably. The patient complains of low back discomfort. The patient states she is mostly wheelchair-bound at home. Kidney function is stable today but not yet improving. Exam - Constitutional Vitals: Period Temp Pulse Resp BP Sys/[place] Pulse Ox Last 24 Hr 97.5 F-98.0 F 62-80 16-20 110-146/56-79 96-100 Exam: Constitutional System: Mild distress. No tremulousness. Head: Normocephalic, atraumatic. Ears, Nose and Throat System: No evidence of Otitis or Mastoiditis. No epistaxis or discharge Eyes System: Pupils equal, round, and reactive. Extraocular muscles intact. Neck: Supple, without adenopathy, trace jugular venous distention. No thyromegaly, neck mass, or prior surgery apparent. Respiratory System: Chest few rales in bases to auscultation. Cardiovascular System: Heart with regular rate and rhythm. No murmur. GI System: Abdomen soft, nontender. Normo active bowel sounds present. Musculoskeletal System: limbs with no pedal edema. Full distal pulses. Neurological System: No discernable sensory deficit. No aphasia Psychiatric System: Conversation is rational Results - Labs CBC & BMP: 06/18/17 00:49 06/20/17 04:13 Lab Results: I have reviewed the past 24 hour labs
[2017-06-20] MEDS: FUROSEMIDE 100 MG/10 ML VIAL IV SCH (11:29)
[2017-06-20] MEDS: ASPIRIN CHEW 81 MG TABLET PO SCH (11:35)
[2017-06-20] MEDS: GABAPENTIN 300 MG CAPSULE PO SCH ×2 (11:35→20:22)
[2017-06-20] MEDS: PANTOPRAZOLE 40 MG TABLET PO SCH (11:35)
[2017-06-20] MEDS: CARVEDILOL 3.125 MG TABLET PO SCH ×2 (11:35→20:22)
--- NOTE | 2017-06-20 15:21 | Nephrology Progress Note ---
Nephrology - PN: Subj Interval history: Patient states she is breathing okay. Review of systems GI-she states she had a bowel movement yesterday, cardiovascular-the patient feels like her legs are less swollen Physical exam general the patient is chronically ill-appearing, she has 2+ pretibial edema Assessment/plan 1. Chronic kidney disease stage III-patient's creatinine stable at 3.1 mg/dL 2. Congestive heart failure-patient seems to be compensated fairly well, I agree with the plan for p.o. Lasix 80 mg daily, I will see her back in a couple weeks and check on her kidneys and her volume status 3. Cardiomyopathy-patient has a decreased ejection fraction of 25%, and arteriogram may be necessary to further evaluate her cardiac dysfunction, I think it is worthwhile to see if her kidneys will not improve with time if not we may have to proceed with an arteriogram despite her increased creatinine. If so I would probably recommend bringing her in the night before her proposed arteriogram and give her some IV fluid hydration as well as Mucomyst 4. Anemia-patient's hematocrit around 26% Exam (PN)-Nephrology - Vital Signs Vital signs: Period Temp Pulse Resp BP Sys/[place] Pulse Ox Last 24 Hr 97.5 F-98.0 F 62-77 16-20 110-139/56-73 96-100 - Lab 06/18/17 00:49 06/20/17 04:13 Most recent lab results Calcium 7.6 MG/DL (8.5-10.1) L 06/20/17 04:13 Magnesium 2.5 MG/DL (1.8-2.4) H 06/20/17 04:13 Assessment and Plan (1) Chronic kidney disease Status: Acute Assessment and plan: This patient's creatinine is 2.7 mg/dL he was around 1.7 mg/dL 2 years ago, I am going to try and get some lab from the [facility] from past 6 months to a year. I suspect she has chronic renal insufficiency stage III disease. Current Visit: Yes (2) Diabetes mellitus Status: Acute Current Visit: Yes (3) Congestive heart failure Status: Chronic Assessment and plan: I agree with the present diuresis. Regarding her heart catheter think it would be best to try on get her out of heart failure first. If he does have a heart cath I think we would do well to hold her diuretics and give her some IV fluids at a cc per KG starting about 12 hours before the proposed procedure and continue them for about 6-8 hours post procedure. I would also give her Mucomyst 600 mg p.o. twice daily 2 doses before and 2 doses after the procedure. Current Visit: Yes Qualifiers: Congestive heart failure type: combined Congestive heart failure chronicity : acute on chronic Qualified Code(s): I50.43 - Acute on chronic combined systolic (congestive) and diastolic (congestive) heart failure (4) Anemia Status: Acute Assessment and plan: Patient's hematocrits around 25% Current Visit: Yes (5) Cardiomyopathy Status: Acute Assessment and plan: Patient's ejection fraction was known to be around 25% Current Visit: Yes
[2017-06-20] MEDS ORDERED: EPOETIN ALFA 2,000 UNIT/1 ML VIAL SUBCUT ONE (17:41)
--- NOTE | 2017-06-20 17:41 | Cardiology Progress Note ---
Fletcher Gale Vanessa RN, am scribing for, and in the presence of, Stephanie Oliva DO 17 :41. Assessment and Plan - Time spent with patient Time spent with patient: Greater than 30 minutes (1) Congestive heart failure Status: Chronic Assessment and plan: Acute on chronic systolic congestive heart failure with severely reduced EF 25- 30% per echocardiogram in April 2017. See HPI. Patient is agreeable to proceeding with heart catheterization, but procedure is definitely high risk due to significant renal dysfunction which has most likely been exacerbated with recent aggressive diuresis. IV Lasix has been adjusted. It may be most beneficial for patient to be discharged home and follow up with me on elective basis as outpatient to discuss cardiac catheterization. Current Visit: Yes Qualifiers: Congestive heart failure type: combined Congestive heart failure chronicity : acute on chronic Qualified Code(s): I50.43 - Acute on chronic combined systolic (congestive) and diastolic (congestive) heart failure (2) Chest pain Status: Chronic Assessment and plan: Remains free of chest pain. Clinically, no findings for ACS. This sounds noncardiac. Current Visit: Yes (3) Poorly controlled diabetes mellitus Status: Chronic Assessment and plan: Glucose greater than 500 at [facility]. Continue SSI. Defer primary management to hospital medicine service. Current Visit: Yes (4) Hypertension Status: Chronic Assessment and plan: Blood pressure more controlled today. Will adjust antihypertensive medication as medical condition evolves. Current Visit: Yes (5) Renal insufficiency Status: Chronic Assessment and plan: Chronicity of this is unknown. Patient currently has a creatinine of 3.1. After aggressive diuresis, Lasix has now been decreased. Nephrology is following also. Chronic kidney disease stage III is suspected. 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 Myers is a 51 year old female with risk factors significant for: hypertension, coronary artery disease, diabetes, obesity. Patient has a history of renal insufficiency and has seen Dr. Baptiste in the past for this. She also has a history of systolic congestive heart failure with severely reduced EF of 25-30% per echocardiogram in April 2017. Patient was admitted to [facility] earlier today as transfer from [facility] for further evaluation of shortness of breath. Patient initially presented to [facility] after she experienced significant severe shortness of breath overnight last night which kept her awake until she called EMS about 2 AM. She also reported she was having some chest pain with left arm radiation. At [facility], cardiac biomarkers were normal. BNP 11,632. Creatinine 2.8. Glucose 585. Ms. Myers reported compliance with her medication. Prior to arrival at [facility], she did receive IV Lasix and insulin at [facility]. Cardiology is now consulted for further evaluation of CHF. May: Ms. Myers and her family are sleeping soundly this morning upon arrival to room. No acute distress or needs noted. Rouses easily. No chest pain or dyspnea at rest. Reports some continued dyspnea with minimal exertion. Also reports she is having moderate amount of lower back pain, and she says this is a chronic problem. Encouraged her to get up out of bed, increase her physical activity as tolerated and with assistance. She is concerned that she will not be able to walk very far because she requires assistance at home to walk also due to back pain. Hypermagnesemic with Mg+ 2.5 today. K+ 4.4. Creatinine is unchanged and is 3.1 with BUN 44, GFR 20. Tele monitoring shows regular rate and rhythm with no disturbance. SBP 110-140 mmHg. Bilateral lower extremity edema with some mild improvement, concentrated 2+ pedal edema today, nontender. The patient has no new complaints. She states that she is willing to have a heart cath I talked to her about the fact that her creatinine had gone up I thought we should demonstrate little more stability before we proceed she is a very high risk for contrast-induced nephropathy. Dr. Torres's assistance is appreciated. I will add hydralazine and isosorbide mononitrate. Anticipate that she not have a heart cath before this discharge. Exam (Progress Note) - Constitutional Vitals: Period Temp Pulse Resp BP Sys/[place] Pulse Ox Last 24 Hr 97.5 F-98.0 F 62-80 16-20 110-146/56-79 96-100 Exam: General: Present: No Apparent Distress, Other (Obese) HEENT: Present: PERRL, Normocephaly. Absent: Jaundice, Oral Lesions Neck: Present: Supple Neck, Midline Trachea, No JVD/HJR, No Bruit Cardiac: Present: Reg Rate and Rhythm, No Murmur. Absent: Tachycardia, Bradycardia Lungs: Present: Bibasilar Rales - improving, No Wheezes, No Rhonchi Neuro: Present: Grossly Intact. Absent: Numbness, Tingling, Weakness, Resting Tremor, Essential Tremor Abdomen: Present: Soft, Active Bowel Sounds (Obese), No Masses, Other. Absent: Ascites, Tender, Firm, Distended Skin: Present: Clear. Absent: Rash, Suspicious Lesions chronic changes of brawny edema Musculoskeletal: Present: Decreased Range of Motion Extremities: Present: No Clubbing, No Cyanosis, Normal Upper Extr. Pulses (3+ bilaterally), Normal Lower Extr. Pulses (2+ bilaterally), Edema, Capillary Refill (Normal), Other (Warm, dry). 2+ pedal edema Result/EKG - Labs CBC & BMP: 06/18/17 00:49 06/20/17 04:13 Lab Results: I have reviewed the past 24 hour labs Labs: Laboratory Results - last 24 hr 06/19/17 06/19/17 06/19/17 11:03 16:03 18:43 Sodium Potassium Chloride Carbon Dioxide Anion Gap BUN Creatinine GFR Calculation BUN/Creatinine Ratio Glucose POC Glucose 253 H 356 H 328 H Calculated Osmolality Calcium Magnesium 06/20/17 06/20/17 06/20/17 04:13 08:08 09:48 Sodium 138 Potassium 4.4 Chloride 104 Carbon Dioxide 24 Anion Gap 14.4 BUN 44 H Creatinine 3.10 H GFR Calculation 20 BUN/Creatinine Ratio 14.00 Glucose 83 POC Glucose 57 L 125 H Calculated Osmolality 284.7 Calcium 7.6 L Magnesium 2.5 H - EKG EKG results: interpreted by me, no acute changes EKG shows: sinus rhythm IHazel Shea, DO, personally performed the services described in this documentation, ascribed by Savana Bynum RN in my presence, and it is both accurate and complete 741 .
[2017-06-20] MEDS: hydrALAZINE 25 MG TABLET PO SCH (20:22)
[2017-06-21 06:10] LABS: Calcium 7.8 MG/DL (8.5-10.1); Magnesium 2.5 MG/DL (1.8-2.4); Potassium 4.8 MMOL/L (3.5-5.1)
[2017-06-21] MEDS: INSULIN LISPRO 100 UNIT/ML SUBCUT SCH (07:35)
[2017-06-21 08:30] VITALS: BP 135/66
[2017-06-21] MEDS ORDERED: DEXTROSE 50% 25 GM/50 ML SYRINGE IV PRN (08:30)
[2017-06-21] MEDS ORDERED: ISOSORBIDE MONONITRATE 30 MG TABLET PO SCH (09:00)
[2017-06-21] MEDS ORDERED: FUROSEMIDE 80 MG TABLET PO SCH (09:00)
--- NOTE | 2017-06-21 09:21 | Discharge Summary ---
Hospital Course - Hospital Course Hospital Course: The patient was admitted to the hospital with acute pulmonary edema. She required intravenous diuretic to improve oxygenation. The patient's renal function has declined in a stepwise fashion and her new baseline appears to be 2.7 creatinine. The patient's creatinine worsened to 3.1 after diuresis. The patient has cardiomyopathy with dilation. We consulted the flight information expediter. Dr. Kimball wishes the patient to have coronary arteriogram due to the dilated cardiomyopathy. We consulted Dr. Torres concerning worsening kidney function. Diuretics were adjusted and renal function is begun to improve and he wishes the patient to delay coronary arteriogram until the heart failure episode has passed. The patient will be discharged home to follow-up with Dr. Kimball in 2 weeks to consider elective coronary arteriogram following that visit. Dr. Torres recommends that the patient be hydrated overnight and given Mucomyst before the arteriogram. On the date of discharge, chest is clear, heart has regular rate and rhythm, and abdomen is soft. Extremities reveal trace pedal edema. The patient was screened for tobacco use and found to be a prior smoker. She was given 4 minutes tobacco cessation education. On the date of discharge it required 34 minutes to educate the patient, the patient assessment, coordinate care with consultants, and prepare discharge documentation. The patient's medications were reconciled at admission and again upon discharge. The patient was discharged home without INDIGO or arm because she could not tolerate these medications on account of her chronic renal failure. - Time spent with patient Time with patient DS: Greater than 30 minutes Diagnosis - Discharge Diagnosis (1) Congestive heart failure Status: Resolved (2) Poorly controlled diabetes mellitus Status: Chronic (3) Hypertension Status: Chronic (4) Renal insufficiency Status: Chronic Discharge Plan - Discharge Data Disposition: Disch To Home/Self Care Condition at Discharge: Stable Discharge Diet: diabetic diet Activity: resume usual activities as tolerated - Discharge Medications New Aspirin Chew Tab 81 mg PO DAILY #100 tablet Furosemide Tab [Lasix Tab] 80 mg PO DAILY #90 tablet Isosorbide Mononitrate [Imdur] 15 mg PO DAILY #60 tablet Carvedilol [Coreg] 3.125 mg PO BID #100 tablet Continue Gabapentin 300 mg PO BID Changed Insulin Detemir [Levemir FlexPen] 40 unit SUBCUT BEDTIME 60 Days Discontinued Furosemide Tab [Lasix Tab] 20 mg PO DAILY - Follow Up or Referral - Forms/Instructions Exam - Constitutional Vitals: Period Temp Pulse Resp BP Sys/[place]uba Pulse Ox Last 24 Hr 97.5 F-97.9 F 65-73 16-20 118-137/57-69 95-99 Discharge Results Procedures and tests throughout hospitalization: Pending Orders 06/21/17 08:28 NM zack perf SPECT rest or str Routine Labs on day of discharge: Labs from last 24 hours 06/21/17 06/21/17 06/20/17 07:21 05:09 19:24 Sodium 136 Potassium 4.8 Chloride 103 Carbon Dioxide 26 Anion Gap 11.8 BUN 46 H Creatinine 3.00 H GFR Calculation 21 BUN/Creatinine Ratio 15.00 Glucose 251 H POC Glucose 243 H 265 H Calculated Osmolality 291.0 Calcium 7.8 L Magnesium 2.5 H 06/20/17 06/20/17 06/20/17 16:12 11:02 09:48 Sodium Potassium Chloride Carbon Dioxide Anion Gap BUN Creatinine GFR Calculation BUN/Creatinine Ratio Glucose POC Glucose 209 H 76 125 H Calculated Osmolality Calcium Magnesium DS: Provider Date of admission: 06/17/17 11:10 Primary care physician: Ellie Akhtar MD Attending physician on admission: Marcos Blum MD Consults: 06/17/17 13:55 Consult to Physician [CONS] Routine Comment: chf Consulting Provider: Indiana Alvarenga Consulting Provider Notified: Yes When should Consulting Provider be notified: Now Consult to Specialist Group: Cardiology When should Consulting Provider be notified: Now Person Notified: GAVIN Date Notified: 06/18/17 Time Notified: 08:30 Consult to Physician [CONS] Routine Comment: ckd Consulting Provider: Osbaldo Torres Consulting Provider Notified: Yes When should Consulting Provider be notified: Now Consult to Specialist Group: Nephrology When should Consulting Provider be notified: Now Person Notified: ROJAS Date Notified: 06/18/17 Time Notified: 08:38 Discharging clinician: Marcos Blum MD
[2017-06-21] MEDS: PANTOPRAZOLE 40 MG TABLET PO SCH (09:37)
[2017-06-21] MEDS: CARVEDILOL 3.125 MG TABLET PO SCH (09:37)
[2017-06-21] MEDS: hydrALAZINE 25 MG TABLET PO SCH (09:38)
[2017-06-21] MEDS: ASPIRIN CHEW 81 MG TABLET PO SCH (09:38)
[2017-06-21] MEDS: GABAPENTIN 300 MG CAPSULE PO SCH (09:39)
--- NOTE | 2017-06-21 10:12 | Nephrology Progress Note ---
Nephrology - PN: Subj Interval history: Patient denies shortness of breath. Review of systems GI she denies nausea vomiting Physical exam general patient chronically ill-appearing Assessment/plan 1. Chronic kidney disease stage III-patient's creatinine stable at 3 mg/dL 2. Volume overload-patient's weight is down about a kilo from yesterday, she has been discharged on 80 mg of Lasix in the morning, the patient was taking 40 mg daily prior to her admission. I told the patient to get a weight scale and weigh herself on a regular basis and that if her weight is not coming down she should double up her Lasix either to 80 mg in the morning and 80 in the evening or perhaps 160 in the morning. I will plan on seeing the patient in a couple weeks. Exam (PN)-Nephrology - Vital Signs Vital signs: Period Temp Pulse Resp BP Sys/[place] Pulse Ox Last 24 Hr 97.5 F-97.9 F 65-73 16-20 118-137/57-69 95-99 - Lab 06/18/17 00:49 06/21/17 05:09 Most recent lab results Calcium 7.8 MG/DL (8.5-10.1) L 06/21/17 05:09 Magnesium 2.5 MG/DL (1.8-2.4) H 06/21/17 05:09 Assessment and Plan (1) Chronic kidney disease Status: Acute Assessment and plan: This patient's creatinine is 2.7 mg/dL he was around 1.7 mg/dL 2 years ago, I am going to try and get some lab from the [facility] from past 6 months to a year. I suspect she has chronic renal insufficiency stage III disease. Current Visit: Yes (2) Diabetes mellitus Status: Acute Current Visit: Yes (3) Congestive heart failure Status: Resolved Assessment and plan: I agree with the present diuresis. Regarding her heart catheter think it would be best to try on get her out of heart failure first. If he does have a heart cath I think we would do well to hold her diuretics and give her some IV fluids at a cc per KG starting about 12 hours before the proposed procedure and continue them for about 6-8 hours post procedure. I would also give her Mucomyst 600 mg p.o. twice daily 2 doses before and 2 doses after the procedure. Current Visit: Yes Qualifiers: Congestive heart failure type: combined Congestive heart failure chronicity : acute on chronic Qualified Code(s): I50.43 - Acute on chronic combined systolic (congestive) and diastolic (congestive) heart failure (4) Anemia Status: Acute Assessment and plan: Patient's hematocrits around 25% Current Visit: Yes (5) Cardiomyopathy Status: Acute Assessment and plan: Patient's ejection fraction was known to be around 25% Current Visit: Yes Specialty Discharge - Follow Up or Referrals Follow up with: Stephanie Oliva DO [Physician] - 07/04/17 9:40 am Osbaldo Torres MD [Physician] - 2 Weeks (With a renal panel)
== END 2017-06-21 15:30 | disposition home or self-care (01) | DRG 291 ==
LOC: EDUNIT# → EDBD → N.ED 09:46 → N.EDINP 11:10 → N.4E 12:03
PROVIDERS: ADMIT Internal Medicine; ATTEND Internal Medicine

== ENCOUNTER 2017-07-08 05:41 | Inpatient (IN) ==
--- NOTE | 2017-07-08 05:52 | EKG Report ---
Stationary ECG Study [facility] ER Test Date: 07/08/2017 5:49:55 AM Pat Name: JUAN CATALAN Department: Room: Gender: F Service Captain: : 1965 Requested by: Theo Baker Order Number: [id number] Reading MD: CARMINA CASILLAS Intervals [place] Rate: 71 P: 37 IA: 154 QRS: 27 QRSD: 95 T: 63 QT: 404 QTc: 426 Interpretive Statements SINUS RHYTHM at 71 bpm NONSPECIFIC T-WAVE ABNORMALITY Electronically Signed On 07-08-17 15:02:43 CDT by CARMINA CASILLAS [email or web address]
[2017-07-08] MEDS ORDERED: NITROGLYCERIN 2% OINT 1 INCH/GM PACK TOP STA (06:08)
[2017-07-08] MEDS ORDERED: NITROGLYCERIN 2% OINT 1 INCH/GM PACK TOP ONE (06:10)
[2017-07-08 06:18] LABS: Basophils % 0.4 % (0.0-0.8); Eosinophils # 0.3 10*3/uL (0.0-0.87); Eosinophils % 3.7 % (0.00-10.9); Hematocrit 25.8 VOL% (35.7-47.0); Immature Granulocytes % 0.3 %; Immature Granulocytes Absolute 0.02 #; Lymphocytes # 1.5 10*3/uL (1.4-4.0); Lymphocytes % 19.8 % (21.3-54.2); Mean Corpuscular HGB Conc 34.9 GM/DL (32-36); Mean Corpuscular Hemoglobin 30 PG (27-34); Mean Corpuscular Volume 84.9 FL (87-102); Mean Platelet Volume 10.6 FL (9.6-12.0); Monocytes # 0.4 10*3/uL (0.11-0.8); Monocytes % 5.7 % (1.7-12.7); Neutrophils # 5.3 10*3/uL (1.4-7.4); Neutrophils % 70.1 % (38.7-73.9); Platelet Count 166 T/CUMM (130-400); Red Blood Count 3.04 MC/CUMM (3.8-5.5); Red Cell Distribution Width 12.4 % (9.3-17.3); White Blood Count 7.6 T/CUMM (4-12)
--- NOTE | 2017-07-08 06:40 | Emergency Department Note ---
Adriel Gale Brooke, am scribing for, and in the presence of, Clint Babb MD 06:13 . Holley Gale James D, MD, personally performed the services described in this documentation, ascribed by Krupa Morel in my presence, and it is both accurate and complete 636 . Arrival - Arrival Chief Complaint: Chest Pain Stated Complaint: chest pain ED Nursing Triage Note: Pt states that she was at home when she began having chest pain rated as a '4' on a 0-10 scale. Also expieriencing shortness of breath. Recently discharged from hospital for same complaint. Mode of Arrival: Ambulatory Limitations: No Limitations Source: Patient, RN Notes Reviewed Time Seen by Provider: 07/08/17 06:01 - History of Present Illness HPI Narrative: Patient is a 51 year old female who presents to the ED with c/o chest pain and left arm pain. Patient describes the chest pain as "stinging" and says it is located in the center of her chest. Patient also complains of having cough and shortness of breath but states "it's not bad now" but it is worsened when laying flat. Patient went to [facility] with same complaint and was give 325mg ASA and 80mg lasix. She says she does feel better since having output from the lasix. Patient was admitted into the Hospital, on 06/17/[address] Oliva, with a diagnoses of acute on chronic systolic congestive heart failure. Patient was to have a heart cath done but due to her renal dysfunction, they did not perform it. Patient also has PMHx of HTN, IDDM, recurring urinary tract infections, and back/neck problems. She says she has been taking her medications. Allergies/Adverse Reactions: Allergies Allergy/AdvReac Type Severity Reaction Status Date / Time No Known Allergies Allergy Verified 07/08/17 05:51 Home Medications: Home Medications Medication Instructions Recorded Confirmed Type Gabapentin 300 mg PO BID 06/17/17 07/08/17 History Carvedilol [Coreg] 3.125 mg PO BID #100 tablet 06/21/17 07/08/17 Rx Furosemide Tab [Lasix Tab] 80 mg PO DAILY #90 tablet 06/21/17 07/08/17 Rx Insulin Detemir [Levemir FlexPen] 40 unit SUBCUT BEDTIME 60 Days 06/21/17 Rx Aspirin EC Tab 81 mg PO DAILY 07/08/17 07/08/17 History Isosorbide Mononitrate [Imdur] 0.5 tablet PO DAILY 07/08/17 07/08/17 History Review of System - Review of System 12 point system: reviewed and no additional remarkable complaints except as stated - Review of System Constitutional: Absent: fever Respiratory: Present: cough, other (shortness of breath). Absent: respiratory distress Cardiovascular: Present: chest pain Skin: Absent: rash Medical,Surgical,& Family Hx - Medical History Cardio: History of: CHF, Hypertension No history of: WI, Pacemaker, PVD Neurology: No history of: Dementia, Seizures, TIA Endocrine: History of: Diabetes Mellitus (IDDM) No history of: Dyslipidemia, Thyroid Disorder Respiratory: No history of: COPD, Obstructive Sleep Apnea, Pulmonary Hypertension Genitourinary: History of: Recurring Urinary Tract Infections No history of: Kidney Stones Gastrointestinal: No history of: GERD, Gastrointestinal Bleed, Hematochezia, Hepatitis Musculoskeletal: History of: Back/Neck Problems (pt states she has a "thinning bone in her back") Hematology: No history of: Anemia, Blood Transfusion Reaction, Clotting Problems Reproductive: No history of: Breast Cancer Other: No history of: Cancer, HIV - Surgical History Cardiac Surgeries: Patient Denies: Cardiac Catheterization, Carotid Endarterectomy Thoracic Surgeries: Patient denies;: Kidney (Renal Surgery) HEENT Surgeries: Patient denies: Carotid Endarterectomy Abdominal Surgeries: Surgical HX of: Cholecystectomy Reproductive Surgeries: Surgical HX of;: Section (x5) Orthopedic Surgeries: Patient denies;: Implanted Devices - Family History Family History: Reports;: Family Diabetes, Family Hypertension - Social History Smoking Status: Never smoker Frequency of Alcohol Use: None Exam Vital Signs: Vital Signs Temperature 97.9 F 07/08/17 05:41 Pulse Rate 71 07/08/17 05:41 Respiratory Rate 18 07/08/17 05:41 Blood Pressure 140/62 07/08/17 05:41 O2 Sat by Pulse Oximetry 98 07/08/17 05:41 GENERAL: This is a well-nourished well-developed female in no apparent distress. VITAL SIGNS: Reviewed HEENT: Head is atraumatic and normocephalic. Pupils are equal round react to light. Extraocular movements are intact. Oropharynx is benign with moist mucous membranes. NECK: Neck is soft and supple without tenderness. There are no masses. There is no lymphadenopathy. LUNGS: Lungs are clear to auscultation. Chest rises symmetrically. There is no chest wall tenderness. CV: Heart is regular rate and rhythm without murmurs rubs or gallops. ABDOMEN: Abdomen is soft, nontender to palpation. There are no abdominal abnormal masses palpated. There is no organomegaly. Bowel sounds are present and active. SKIN: Skin is warm and dry. No rash. EXTREMITIES: Patient has full range of motion without tenderness. There is 2+ pitting pedal edema. NEUROLOGIC: Awake alert and oriented 4. Cranial nerves II through XII are grossly intact. Motor is 5 over 5 in all extremities bilaterally. Course - Consultations Consultation #1: Discussed with hospitalist. Patient will be admitted to their service. Time: 06:40 Results - Labs CBC & BMP: 07/08/17 06:03 07/08/17 06:03 Lab Results: I have reviewed the patients labs Labs: Lab performed at [facility] and reviewed by me: Chemistry: Sodium 136, potassium 3.6, chloride 103, CO2 26, BUN 42, creatinine 2.6, glucose 267, calcium 8.1 Troponin 0.006 BNP 8805 CBC: WBCs 6900, hemoglobin 9.2, hematocrit 28, platelet count 174,000 Laboratory Tests 07/08/17 06:03 Troponin I < 0.015 - EKG EKG results: interpreted by ERMD - Impressions EKG: Normal sinus rhythm with rate of 71, nonspecific ST-T wave changes, normal axis. - Diagnostic Findings Procedure: Chest x-ray: image reviewed by me (Cardiomegaly, increased pulmonary markings bilaterally) Critical Care Time Critical Care Time: No Disposition Clinical Impression: Chest pain, CKD stage 3 due to type 2 diabetes mellitus, Essential hypertension , CHF (congestive heart failure), Cardiomyopathy Case discussed with: patient Disposition: Still a Patient Condition: Stable Time of Disposition: 07:09
--- NOTE | 2017-07-08 06:52 | XRay Report ---
XR chest 1V portable Indication: Chest pain. Chest one view: Comparison 06/19/2017. Increasing obscuration of the retrocardiac left lower lobe noted. There is continued mild cardiomegaly with continued vascular congestion centrally and diffuse mild interstitial prominence of the lungs. Right lung base remains relatively clear. Impression: Worsening obscuration retrocardiac left lower lobe concerning for progressive pneumonia or atelectasis. Chronic mild underlying CHF. PROCEDURE INTERPRETED AT [facility] DEPARTMENT OF RADIOLOGY Final Report Signed by: Osbaldo Singletary M.D.
[2017-07-08 07:00] LABS: Albumin 2.2 G/DL (3.4-5.0); Bilirubin,Total 0.7 MG/DL (0.2-1.0); Calcium 8.1 MG/DL (8.5-10.1); Osmolality,Calculated 291.7 MOS/KG (273-304); Potassium 3.6 MMOL/L (3.5-5.1); Total Protein 6.1 G/DL (6.4-8.3)
[2017-07-08] MEDS ORDERED: GLUCAGON 1 MG VIAL IM PRN (07:47)
[2017-07-08] MEDS ORDERED: DEXTROSE 50% 25 GM/50 ML VIAL IV PRN (07:47)
--- NOTE | 2017-07-08 07:59 | Hospitalist History & Physical ---
<Delio Farooq - Last Filed: 07/08/17 07:49> Assessment and Plan (1) Chest pain Status: Acute Assessment and plan: Cardiac monitoring. Serial EKGs. Serial troponins. Consult cardiology for evaluation. Current Visit: Yes (2) CHF (congestive heart failure) Status: Acute Assessment and plan: Admit as inpatient. BNP 308. Will recheck in am. Consult cardiology. Restart coreg. Pt's echo from 04/30 showed EF 25-30%. Low salt diet. Current Visit: Yes (3) Essential hypertension Status: Chronic Assessment and plan: Restart home meds. Pt. stable at present. Current Visit: Yes (4) Anemia Status: Chronic Assessment and plan: Chronic issue. Check CBC in am. Current Visit: No (5) Chronic kidney disease Status: Chronic Assessment and plan: Chronic issue for patient. Bun/creatinine 38/2.6. Avoid nephrotoxic agents. Daily bmps. Current Visit: No History of Present Illness Chief complaint: chest pain/shortness of breath History of present illness: Ms. Myers is a 51 year old female with a history of CHF, htn, dm, and chronic kidney disease that presents to the ED today for further evaluation of chest pain. Pt. states she began to have a sharp pain in the middle of her chest that was accompanied by shortness of breath. Pt. denies fever, chills, sweating, nausea or vomiting. Pt. does report some intermittent radiation of the pain into her back. She went to [facility] and was treated with ASA and lasix and subsequently sent here for further evaluation. Ms. Myers is known to our service as she was recently hospitalized on 06/18 for similar complaints. At that time, patient was evaluated for acute on chronic CHF. Pt. states she has an appointment to Dr. Oliva today at 230. Pt. does not know the name of her PCP but reports compliance with medication. Labs of note today are patient's BNP of 308, bun/creatinine which are 38/2.60 respectively. Pt's h&h is 08/19.8. CXR showed 'worsening obscuration retrocardiac left lower lobe' and 'chronic mild underlying CHF'. Pt will be admitted to the hospitalist service for further evaluation and treatment. Home Medications Medication Instructions Recorded Confirmed Type Gabapentin 300 mg PO BID 06/17/17 07/08/17 History Carvedilol [Coreg] 3.125 mg PO BID #100 tablet 06/21/17 07/08/17 Rx Furosemide Tab [Lasix Tab] 80 mg PO DAILY #90 tablet 06/21/17 07/08/17 Rx Insulin Detemir [Levemir FlexPen] 40 unit SUBCUT BEDTIME 60 Days 06/21/17 Rx Aspirin EC Tab 81 mg PO DAILY 07/08/17 07/08/17 History Isosorbide Mononitrate [Imdur] 0.5 tablet PO DAILY 07/08/17 07/08/17 History Allergies Allergy/AdvReac Type Severity Reaction Status Date / Time No Known Allergies Allergy Verified 07/08/17 05:51 Medical,Surgical,& Family Hx - Medical History Cardio: History of: CHF, Hypertension No history of: WI, Pacemaker, PVD Neurology: No history of: Dementia, Seizures, TIA Endocrine: History of: Diabetes Mellitus (IDDM) No history of: Dyslipidemia, Thyroid Disorder Respiratory: No history of: COPD, Obstructive Sleep Apnea, Pulmonary Hypertension Genitourinary: History of: Recurring Urinary Tract Infections No history of: Kidney Stones Gastrointestinal: No history of: GERD, Gastrointestinal Bleed, Hematochezia, Hepatitis Musculoskeletal: History of: Back/Neck Problems (pt states she has a "thinning bone in her back") Hematology: No history of: Anemia, Blood Transfusion Reaction, Clotting Problems Reproductive: No history of: Breast Cancer Other: No history of: Cancer, HIV - Surgical History Cardiac Surgeries: Patient Denies: Cardiac Catheterization, Carotid Endarterectomy Thoracic Surgeries: Patient denies;: Kidney (Renal Surgery) HEENT Surgeries: Patient denies: Carotid Endarterectomy Abdominal Surgeries: Surgical HX of: Cholecystectomy Reproductive Surgeries: Surgical HX of;: Section (x5) Orthopedic Surgeries: Patient denies;: Implanted Devices - Family History Family History: Reports;: Family Diabetes, Family Hypertension - Social History Smoking Status: Never smoker Frequency of Alcohol Use: None Marital Status: Single Lives With:: Parent Functional capacity: wheelchair bound - Constitutional Constitutional: Absent: chills, fever(s), weakness - EENT Eyes: Absent: loss of vision Ears: Absent: decreased hearing Nose, mouth and throat: Absent: headache(s) - Cardiovascular Cardiovascular: Present: chest pain at rest, dyspnea on exertion, edema. Absent : diaphoresis, radiating jaw, neck or arm pain - Respiratory Respiratory: Present: dyspnea on exertion - Gastrointestinal Gastrointestinal: Absent: abdominal pain, nausea, vomiting - Genitourinary Genitourinary: Absent: difficulty urinating - Musculoskeletal Musculoskeletal: Present: back pain. Absent: limited range of motion - Neurological Neurological: Absent: confusion - Psychiatric Psychiatric: Absent: anxiety, depression Exam - Constitutional Vitals: Period Temp Pulse Resp BP Sys/[place] Pulse Ox Last 24 Hr 97.9 F-97.9 F 69-71 18-18 140-140/62-62 98 General appearance: no acute distress, over weight - Head Head exam: Present: normal inspection, normocephalic - Eye Eye exam: Present: EOMI. Absent: scleral icterus Pupils: Present: DAHIANA. Absent: fixed - Respiratory Respiratory exam: Present: clear to auscultation bilaterally. Absent: wheezes - Cardiovascular Cardiovascular exam: Present: regular rate and rhythm. Absent: tachycardia - GI/Abdominal GI/Abdominal exam: Present: normal bowel sounds. Absent: tenderness - Extremities Exam Extremities exam: Present: normal capillary refill, full ROM. Absent: edema - Back Exam Back exam: Present: normal inspection - Neurological Exam Neurological exam: Present: alert, oriented X3 - Psychiatric Psychiatric exam: Present: normal affect, normal mood - Skin Skin exam: Present: normal color, warm Results - Labs CBC & BMP: 07/08/17 06:03 07/08/17 06:03 Lab Results: I have reviewed the past 24 hour labs <Andre Carey - Last Filed: 07/08/17 08:17> History of Present Illness History of present illness: Ms. Myers is a 51 year old female with previously known history of dilated cardiomyopathy with LVEF 25%, acute on chronic systolic congestive heart failure , type 1 diabetes mellitus, and chronic kidney disease. She presented to [facility] today with complaints of chest pain and shortness of breath. She was treated at that facility with intravenous furosemide. She underwent diuresis. At the present time she has no complaints of chest pain or shortness of breath. She was accepted in transfer here for further evaluation and management. Cardiology has been consulted. I agree with the assessment and plans as outlined by the nurse practitioner. I have interviewed the patient, examined the patient, and reviewed all the available laboratory tests and x-ray test results. Exam - Constitutional Vitals: Period Temp Pulse Resp BP Sys/[place] Pulse Ox Last 24 Hr 97.9 F-97.9 F 69-71 18-18 140-140/62-62 98 Results - Labs CBC & BMP: 07/08/17 06:03 07/08/17 06:03
[2017-07-08] MEDS ORDERED: ACETAMINOPHEN 325 MG TABLET PO PRN (08:56)
[2017-07-08] MEDS ORDERED: ONDANSETRON 4 MG/2 ML VIAL IV PRN (08:56)
[2017-07-08] MEDS: ASPIRIN EC 81 MG TABLET PO SCH (09:28)
[2017-07-08] MEDS: ISOSORBIDE MONONITRATE 30 MG TABLET PO SCH (09:37)
[2017-07-08] MEDS: PANTOPRAZOLE 40 MG TABLET PO SCH (09:37)
[2017-07-08] MEDS: CARVEDILOL 3.125 MG TABLET PO SCH ×2 (09:37→23:18)
--- NOTE | 2017-07-08 12:13 | EKG Report ---
Stationary ECG Study [facility] Test Date: 07/08/2017 12:13:53 PM Pat Name: JUAN CATALAN Department: Room: 269 Gender: F Finisher Special Stocks: SUSSY : 1965 Requested by: Delio Farooq Order Number: [id number] Reading MD: EMERITA LOUIS Intervals [place] Rate: 73 P: 64 AK: 146 QRS: 74 QRSD: 97 T: 73 QT: 437 QTc: 463 Interpretive Statements SINUS RHYTHM Electronically Signed On 07-08-17 15:10:16 CDT by EMERITA LOUIS [id number]
[2017-07-08] MEDS: INSULIN LISPRO 100 UNIT/ML SUBCUT SCH ×3 (12:28→21:24)
--- NOTE | 2017-07-08 15:53 | EKG Report ---
Stationary ECG Study [facility] Test Date: 07/08/2017 2:54:23 PM Pat Name: JUAN CATALAN Department: Room: 269 Gender: F Webmethods Consultant: MARY : 1965 Requested by: Delio Farooq Order Number: [id number] Reading MD: EMERITA LOUIS Intervals [place] Rate: 76 P: 23 [place]: 150 QRS: 11 QRSD: 92 T: 34 QT: 397 QTc: 428 Interpretive Statements SINUS RHYTHM NONSPECIFIC T-WAVE ABNORMALITY Electronically Signed On 07-08-17 18:13:24 CDT by EMERITA LOUIS [id number]
[2017-07-08 16:15] LABS: Apearance,Urine CLEAR (Clear); Bacteria,Urine Occasional /HPF (Few); Bilirubin,Urine Negative (Negative); Blood, Urine Negative (Negative); Glucose,Urine (UA) >=500 mg/dL (Negative); Ketones,Urine Negative (Negative); Mucus,Urine Occasional /LPF (Occasional); Nitrite,Urine Negative (Negative); Protein,Urine >=500 MG/DL; Squamous Epithelial Cell,Urine Occasional /HPF (0-10); Urine Color Yellow (Yellow); Urine Specific Gravity 1.006 (1.001-1.035); Urine Urobilinogen < 2.0 EU/DL (0.2-1.0); WBC,Urine <1 /HPF (0-6)
[2017-07-08] MEDS: FUROSEMIDE 40 MG/4 ML VIAL IV SCH (16:28)
[2017-07-08 16:29] LABS: Troponin I Only < 0.015 NG/ML (0.00-0.045)
--- NOTE | 2017-07-08 18:19 | Cardiology Consult Note ---
Fletcher Gale Vanessa RN, am scribing for, and in the presence of, Angelito Bolden MD 18:18. Assessment and Plan - Time spent with patient Time spent with patient: Greater than 30 minutes (Date of assessment, planning, documentation, medication review) (1) Chest pain Status: Acute Assessment and plan: 51-year-old female with past medical history of hypertension, poorly controlled diabetes, obesity, and chronic kidney disease. She has a dilated and acute on chronic systolic CHF with decreased EF 25-30%. Recently plan to undergo cardiac catheterization pending improvement of renal function. She is now admitted with right-sided chest pain, minimal shortness of breath. June ASSESSMENT/PLAN: 1.CHEST PAIN- atypical. Chest wall pain is reproducible with palpation of area. EKG and cardiac biomarkers have been negative for acute changes. 2.HYPERTENSION - Fairly well controlled at present. Monitor and adjust antihypertensive medications as indicated. 3.DIABETES - poorly uncontrolled in the past. Will defer primary management to hospital medicine. 4.CHRONIC KIDNEY DISEASE - Creatinine 2.6 this admission and slightly improved since discharge (3.0 on 06/21). Chronic kidney disease, stage III-IV. She has been evaluated in the past by Dr. Baptiste and during last hospital admission by Dr. Torres. Avoiding nephrotoxic agents as possible. No INDIGO-I or ARB given for fear of worsening renal function. 5.SYSTOLIC CHF- acute on chronic. BNP mildly elevated, and she is not overtly orthopneic. No overt s/s heart failure and appears to be overall well compensated at this time. 6.DILATED CARDIOMYOPATHY- EF 25-30%. Has recently been planned for cardiac cath (pending improvement of renal function) to rule out ischemic cardiomyopathy. Unable to keep outpatient appt with Dr. Mcbride today (to discuss/evaluate) as previously scheduled due to current hospital admission. 7.OBESITY- reports attempts to modify diet and lead healthier lifestyle. Weight noted to be down 10 pounds since last admission. 8.ANEMIA - chronic. No overt s/s bleeding. Asymptomatic. Monitor closely. Her chest pain is atypical and reproducible, exactly the same. So far, cardiac isoenzymes are negative. Her creatinine is improved but may or may not be optimal Plan/recommendation: Treat for chest wall pain-tramadol, Tylenol, gabapentin Avoid NSAIDs because her renal insufficiency Avoid INDIGO inhibitor because of her renal insufficiency EKG every morning 3 to see if it changes With treating chest wall pain if she is better we can consider tomorrow whether let her go home and give her more time for renal recovery to occur before she undergoes a heart cath by Dr. Kimball or reconsider it sooner rather than later-- - partly will depend on her cardiac isoenzymes and how she is doing in her renal function We will keep her n.p.o. after midnight in case she needs a cath We will place her on a proton pump inhibitor if she is not on one, just in case some component is GI related Thank you for allowing me to participate in this patient's care Current Visit: Yes (2) CKD stage 3 due to type 2 diabetes mellitus Status: Chronic Assessment and plan: SEE PLAN OF CARE LISTED ABOVE. Current Visit: Yes (3) Cardiomyopathy Status: Acute Assessment and plan: SEE PLAN OF CARE LISTED ABOVE. Current Visit: Yes (4) Essential hypertension Status: Chronic Assessment and plan: SEE PLAN OF CARE LISTED ABOVE. Current Visit: Yes (5) Diabetes mellitus Status: Chronic Assessment and plan: SEE PLAN OF CARE LISTED ABOVE. Current Visit: No (6) Anemia Status: Chronic Assessment and plan: SEE PLAN OF CARE LISTED ABOVE. Current Visit: No History of Present Illness - Data of Consult Patient: new to practice Consult date: 07/08/17 Requesting Physician: Delio Farooq - Consult Narrative Reason for consult: CP, SOB History of present illness: [employer] PREPARATION: DR. MCBRIDE (newly established care) Ms. Myers is a 51 year old female with risk factors significant for: hypertension, diabetes (poorly controlled), and obesity. She also has a history of chronic renal insufficiency and has previously been evaluated by Dr. Baptiste. She has acute on chronic systolic CHF with severely reduced EF 25-30%, NYHA class III. Patient was most recently discharged from [facility] after 4 day admission and treatment for acute pulmonary edema. Patient responded to diuresis, but did have worsening of her renal function afterward, and was evaluated by Dr. Torres. Patient was agreeable to proceeding with left heart catheterization and possible percutaneous coronary intervention, but she was deemed to be at significant high risk due to her renal dysfunction. It was felt to be most beneficial for Ms. Myers to be discharged home to follow up with Dr. Mcbride for outpatient evaluation and to discuss cardiac catheterization. Her appointment with Dr. Mcbride was scheduled for today, July 08, at 2:10 PM. However, patient is now admitted to [facility]s tele unit in transfer from [facility] for further evaluation of midsternal chest pain with intermittent radiation to the back and associated shortness of breath. Chest x-ray with mild underlying CHF, mild elevation of BNP 308. EKG benign for acute ischemic finding. Troponin nondetectable. Cardiology was consulted for evaluation of chest pain and dyspnea. Ms. Myers is in no acute distress upon exam this morning. Reports that shortly after her arrival to [facility]'s ED from [facility], her chest pain resolved. Reports that she was awakened by her children watching television last night around midnight, and after she woke up, she noticed a midsternal and right sided chest pain. She describes this as a "stab" and had radiation into her right shoulder and back. She admits to some shortness of breath at rest but did not feel it was worsened with chest pain. No associated N/V, diaphoresis, or other anginal symptoms. This waxed and waned for approximately 1 hour before presenting to [place] for evaluation. Ms. Myers reports that while she was asleep last night she was sleeping on her right side as she cannot lie flat on her back comfortably. She feels this may be the source of her chest pain, but she was concerned it may be related to her heart. Upon exam, Ms. Myers has reproducible right chest wall pain and some reproducible midsternal chest wall discomfort. It is moderately uncomfotable. Reports this is the exact discomfort that she felt after being awakened last night. BP 144/68. NitroBid patch to left chest. EKG and tele monitoring have been without acute ischemic change, regular rate and rhythm, no ectopy. Denies recent cough, fever, chills. No dysphagia, dyspepsia. Reports that since she was discharged from the hospital, she has been very compliant with her medicines and is attempting to lead a healthier lifestyle with diet. Weight noted to be down 10 pounds this admission. No overt orthopnea, PND, palpitations. Bilateral pedal edema 1-2+, no tenderness. Creatinine 26 (3.0 on 06/21 at discharge). CC: Andre Carey - Home Medications and Allergies Home Medications: Home Medications Medication Instructions Recorded Confirmed Type Carvedilol [Coreg] 3.125 mg PO BID #100 tablet 06/21/17 07/08/17 Rx Furosemide Tab [Lasix Tab] 80 mg PO DAILY #90 tablet 06/21/17 07/08/17 Rx Insulin Detemir [Levemir FlexPen] 40 unit SUBCUT BEDTIME 60 Days 06/21/17 Rx Aspirin EC Tab 81 mg PO DAILY 07/08/17 07/08/17 History Isosorbide Mononitrate [Imdur] 0.5 tablet PO DAILY 07/08/17 07/08/17 History Allergies/Adverse Reactions: Allergies Allergy/AdvReac Type Severity Reaction Status Date / Time No Known Allergies Allergy Verified 07/08/17 05:51 - Constitutional Constitutional: Present: daytime sleepiness, weakness, weight loss. Absent: anorexia, chills, fatigue, fever(s), frequent falls, lethargy, night sweats, weight gain - EENT Eyes: Absent: blurry vision, loss of vision Nose, mouth and throat: Present: other (poor dentition). Absent: dysphagia, epistaxis, nasal congestion, neck pain, sore throat, tongue swelling, vertigo - Cardiovascular Cardiovascular: Present: chest pain at rest (atypical), dyspnea on exertion, edema (bilateral pedal edema). Absent: chest pain with activity, claudication, diaphoresis, dyspnea, radiating jaw, neck or arm pain, lightheadedness, orthopnea, palpitations, PND - Respiratory Respiratory: Present: dyspnea on exertion. Absent: cough, dyspnea, hemoptysis, wheezing, change in phlegm color - Gastrointestinal Gastrointestinal: Absent: abdominal pain, bloating, constipation, diarrhea, dysphagia, early satiety, heartburn, hematemesis, melena, nausea, vomiting - Genitourinary Genitourinary: Absent: dysuria, flank pain, hematuria - Musculoskeletal Musculoskeletal: Present: arthralgias, myalgias. Absent: limited range of motion - Neurological Neurological: Present: abnormal gait (uses wheelchair frequently due to reported increased in falls due to back pain). Absent: confusion, dizziness, syncope, tremor(s) - Psychiatric Psychiatric: Absent: anxiety, depression - Endocrine Endocrine: Absent: cold intolerance, heat intolerance - Hematologic/Lymphatic Hematologic/Lymphatic: Absent: easy bleeding, easy bruising Medical,Surgical,& Family Hx - Medical History Cardio: History of: CHF, Hypertension No history of: Cardiac Dysrhythmia, MT, Pacemaker, PVD Psychological: No history of: Anxiety Disorders, Depression Neurology: No history of: Dementia, Seizures, TIA HEENT: History of: HEENT Problems (poor dentition) Endocrine: History of: Diabetes Mellitus (IDDM) No history of: Diabetes Mellitus (NIDDM), Dyslipidemia, Thyroid Disorder Rheumatology: No history of;: Gout, Rheumatoid Arthritis Respiratory: No history of: COPD, Obstructive Sleep Apnea, Pulmonary Hypertension Renal: History of: Renal Problems (CKD) No history of: Dialysis Genitourinary: History of: Recurring Urinary Tract Infections No history of: Kidney Stones Gastrointestinal: No history of: GERD, Gastrointestinal Bleed, Hematochezia, Hepatitis Musculoskeletal: History of: Back/Neck Problems (pt states she has a "thinning bone in her back") Hematology: No history of: Anemia, Blood Transfusion Reaction, Clotting Problems Reproductive: No history of: Breast Cancer Other: No history of: Cancer, HIV - Surgical History Cardiac Surgeries: Patient Denies: Cardiac Catheterization, Carotid Endarterectomy Thoracic Surgeries: Patient denies;: Kidney (Renal Surgery) HEENT Surgeries: Patient denies: Carotid Endarterectomy Abdominal Surgeries: Surgical HX of: Cholecystectomy Reproductive Surgeries: Surgical HX of;: Section (x5) Orthopedic Surgeries: Patient denies;: Implanted Devices - Family History Family History: Reports;: Family Diabetes, Family Hypertension - Social History Smoking Status: Never smoker Frequency of Alcohol Use: None Type of Drug Use: None Lives With:: Children Functional capacity: wheelchair bound Physical Examination Vital Signs Temp Pulse Resp BP Pulse Ox 97.9 F 71 18 140/62 98 07/08/17 05:41 07/08/17 05:41 07/08/17 05:41 07/08/17 05:41 07/08/17 05:41 General: Present: No Apparent Distress, Other (overweight) HEENT: Present: PERRL, Normocephaly, Mucus Membranes Moist. Absent: Pallor Neck: Present: Supple Neck, Midline Trachea, No JVD/HJR, No Bruit Cardiac: Present: Reg Rate and Rhythm, No Murmur. Absent: Tachycardia, Bradycardia Lungs: Present: Clear Ascult./Percussion, No Wheeze, Rales, Rhonchi Neuro: Present: Grossly Intact. Absent: Numbness, Tingling, Resting Tremor, Essential Tremor Abdomen: Present: Soft, Active Bowel Sounds, Other (obese). Absent: Ascites, Tender, Firm, Distended Skin: Present: Clear, Other (warm, dry). Absent: Rash, Suspicious Lesions, Bruising Musculoskeletal: Present: Normal Range of Motion Extremities: Present: No Clubbing, No Cyanosis, Normal Upper Extr. Pulses (3+ bilaterally), Normal Lower Extr. Pulses (2+ bilaterally), Bilateral Pedal Edema (1-2+), Capillary Refill (normal) Result/EKG - Labs CBC & BMP: 07/08/17 06:03 07/08/17 06:03 Lab Results: I have reviewed the past 24 hour labs Labs: Laboratory Results - last 24 hr 07/08/17 07/08/17 07/08/17 06:03 06:03 06:03 WBC 7.6 RBC 3.04 L Hgb 9.0 L Hct 25.8 L MCV 84.9 L MCH 30 MCHC 34.9 RDW 12.4 Plt Count 166 MPV 10.6 Neut % (Auto) 70.1 Lymph % (Auto) 19.8 L Mcclain % (Auto) 5.7 Eos % (Auto) 3.7 Baso % (Auto) 0.4 Neut # (Auto) 5.3 Lymph # (Auto) 1.5 Mcclain # (Auto) 0.4 Eos # (Auto) 0.3 Baso # (Auto) 0.0 Immature Gran % 0.3 Nucleated RBC % 0.0 Immature Gran # 0.02 Nucleated RBCs # 0.00 Immature Plt Fraction 0.0 Sodium 138 Potassium 3.6 Chloride 104 Carbon Dioxide 24 Anion Gap 13.6 BUN 38 H Creatinine 2.60 H GFR Calculation 25 BUN/Creatinine Ratio 14.00 Glucose 236 H POC Glucose Calculated Osmolality 291.7 Calcium 8.1 L Total Bilirubin 0.70 AST 15 ALT 12 L Alkaline Phosphatase 128 H Troponin I B-Natriuretic Peptide 308 H Total Protein 6.1 L Albumin 2.2 L Globulin 3.9 H Albumin/Globulin Ratio 0.5 L 07/08/17 07/08/17 07/08/17 06:03 09:35 11:00 WBC RBC Hgb Hct MCV MCH MCHC RDW Plt Count MPV Neut % (Auto) Lymph % (Auto) Mcclain % (Auto) Eos % (Auto) Baso % (Auto) Neut # (Auto) Lymph # (Auto) Mcclain # (Auto) Eos # (Auto) Baso # (Auto) Immature Gran % Nucleated RBC % Immature Gran # Nucleated RBCs # Immature Plt Fraction Sodium Potassium Chloride Carbon Dioxide Anion Gap BUN Creatinine GFR Calculation BUN/Creatinine Ratio Glucose POC Glucose 282 H 314 H Calculated Osmolality Calcium Total Bilirubin AST ALT Alkaline Phosphatase Troponin I < 0.015 B-Natriuretic Peptide Total Protein Albumin Globulin Albumin/Globulin Ratio - Diagnostic Findings Procedure: Chest x-ray: image reviewed by me, report reviewed by me - EKG EKG results: interpreted by me, no acute changes EKG shows: sinus rhythm IYuan Dale, MD, personally performed the services described in this documentation, ascribed by Savana Bynum RN in my presence, and it is both accurate and complete [id number] .
[2017-07-08 18:54] LABS: Troponin I Only < 0.015 NG/ML (0.00-0.045)
[2017-07-08] MEDS: GABAPENTIN 100 MG CAPSULE PO SCH (20:00)
[2017-07-08] MEDS: traMADol 50 MG TABLET PO SCH (20:22)
[2017-07-08] MEDS: ACETAMINOPHEN 325 MG TABLET PO SCH (20:22)
[2017-07-09 05:58] LABS: Basophils % 0.3 % (0.0-0.8); Eosinophils # 0.2 10*3/uL (0.0-0.87); Eosinophils % 4.1 % (0.00-10.9); Hematocrit 27.5 VOL% (35.7-47.0); Hemoglobin 9.2 GM/DL (12.0-16.0); Immature Granulocytes % 0.3 %; Immature Granulocytes Absolute 0.02 #; Lymphocytes # 1.2 10*3/uL (1.4-4.0); Lymphocytes % 20.7 % (21.3-54.2); Mean Corpuscular HGB Conc 33.5 GM/DL (32-36); Mean Corpuscular Hemoglobin 28 PG (27-34); Mean Corpuscular Volume 84.6 FL (87-102); Mean Platelet Volume 9.8 FL (9.6-12.0); Monocytes # 0.3 10*3/uL (0.11-0.8); Monocytes % 5.3 % (1.7-12.7); Neutrophils # 4.1 10*3/uL (1.4-7.4); Neutrophils % 69.3 % (38.7-73.9); Platelet Count 164 T/CUMM (130-400); Red Blood Count 3.25 MC/CUMM (3.8-5.5); Red Cell Distribution Width 12.5 % (9.3-17.3); White Blood Count 5.9 T/CUMM (4-12)
[2017-07-09 06:37] LABS: Free T4 (Free Thyroxine) 1.29 NG/DL (0.76-1.46); Troponin I Only < 0.015 NG/ML (0.00-0.045)
[2017-07-09 06:40] LABS: Calcium 8.2 MG/DL (8.5-10.1); Magnesium 2.3 MG/DL (1.8-2.4); Osmolality,Calculated 286.8 MOS/KG (273-304); Potassium 3.7 MMOL/L (3.5-5.1); Risk Ratio 3.6; Thyroid Stimulating Hormone 6.38 uIU/ml (0.358-3.74); VLDL CHOLESTEROL 20.4 MG/DL
--- NOTE | 2017-07-09 07:09 | EKG Report ---
Stationary ECG Study [facility] Test Date: 07/09/2017 7:07:38 AM Pat Name: JUAN CATALAN Department: Room: 269 Gender: F [employer] Supervisor: MARY : 1965 Requested by: Emerita Bolden Order Number: [id number] Reading MD: EMERITA BOLDEN Intervals [place] Rate: 68 P: 40 MN: 160 QRS: 31 QRSD: 94 T: 62 QT: 454 QTc: 471 Interpretive Statements SINUS RHYTHM PROLONGED QT INTERVAL Electronically Signed On 07-09-17 09:30:16 CDT by EMERITA BOLDEN [email or web address]
[2017-07-09] MEDS ORDERED: DEXTROSE 50% 25 GM/50 ML VIAL IV PRN (09:15)
[2017-07-09] MEDS ORDERED: GLUCAGON 1 MG VIAL IM PRN (09:15)
[2017-07-09] MEDS: INSULIN LISPRO 100 UNIT/ML SUBCUT SCH ×4 (09:48→21:18)
[2017-07-09] MEDS: ACETAMINOPHEN 325 MG TABLET PO SCH ×2 (09:49→20:13)
[2017-07-09] MEDS: traMADol 50 MG TABLET PO SCH ×2 (09:49→20:13)
[2017-07-09] MEDS: FUROSEMIDE 40 MG/4 ML VIAL IV SCH ×2 (09:49→16:14)
[2017-07-09] MEDS: ISOSORBIDE MONONITRATE 30 MG TABLET PO SCH (09:49)
[2017-07-09] MEDS: GABAPENTIN 100 MG CAPSULE PO SCH ×3 (09:50→20:12)
[2017-07-09] MEDS: CARVEDILOL 3.125 MG TABLET PO SCH ×2 (09:50→20:14)
[2017-07-09] MEDS: ASPIRIN EC 81 MG TABLET PO SCH (09:50)
[2017-07-09] MEDS: PANTOPRAZOLE 40 MG TABLET PO SCH (09:50)
--- NOTE | 2017-07-09 12:45 | Cardiology Progress Note ---
Fletcher Gale Vanessa RN, am scribing for, and in the presence of, Angelito Bolden MD 12:42. Assessment and Plan - Time spent with patient Time spent with patient: Greater than 30 minutes (1) Chest pain Status: Acute Assessment and plan: 51-year-old female with past medical history of hypertension, poorly controlled diabetes, obesity, and chronic kidney disease. She has a dilated and acute on chronic systolic CHF with decreased EF 25-30%. Recently plan to undergo cardiac catheterization pending improvement of renal function. She is now admitted with right-sided chest pain, minimal shortness of breath. June ASSESSMENT/PLAN: 1.CHEST PAIN- atypical. Chest wall pain is reproducible with palpation of area. EKG and cardiac biomarkers have been negative for acute changes. 2.HYPERTENSION - Fairly well controlled at present. Monitor and adjust antihypertensive medications as indicated. 3.DIABETES - poorly uncontrolled in the past. Will defer primary management to hospital medicine. 4.CHRONIC KIDNEY DISEASE - Creatinine 2.6 this admission and slightly improved since discharge (3.0 on 06/21). Chronic kidney disease, stage III-IV. She has been evaluated in the past by Dr. Baptiste and during last hospital admission by Dr. Torres. Avoiding nephrotoxic agents as possible. No INDIGO-I or ARB given for fear of worsening renal function. 5.SYSTOLIC CHF- acute on chronic. BNP mildly elevated, and she is not overtly orthopneic. No overt s/s heart failure and appears to be overall well compensated at this time. 6.DILATED CARDIOMYOPATHY- EF 25-30%. Has recently been planned for cardiac cath (pending improvement of renal function) to rule out ischemic cardiomyopathy. Unable to keep outpatient appt with Dr. Mcbride today (to discuss/evaluate) as previously scheduled due to current hospital admission. 7.OBESITY- reports attempts to modify diet and lead healthier lifestyle. Weight noted to be down 10 pounds since last admission. 8.ANEMIA - chronic. No overt s/s bleeding. Asymptomatic. Monitor closely. Her chest pain is atypical and reproducible, exactly the same. So far, cardiac isoenzymes are negative. Her creatinine is improved but may or may not be optimal Plan/recommendation: Treat for chest wall pain-tramadol, Tylenol, gabapentin Avoid NSAIDs because her renal insufficiency Avoid INDIGO inhibitor because of her renal insufficiency EKG every morning 3 to see if it changes With treating chest wall pain if she is better we can consider tomorrow whether let her go home and give her more time for renal recovery to occur before she undergoes a heart cath by Dr. Kimball or reconsider it sooner rather than later-- - partly will depend on her cardiac isoenzymes and how she is doing in her renal function We will keep her n.p.o. after midnight in case she needs a cath We will place her on a proton pump inhibitor if she is not on one, just in case some component is GI related Thank you for allowing me to participate in this patient's care. June ASSESSMENT/PLAN: 1.CHEST PAIN- remains atypical. Chest wall pain is reproducible with palpation of area. EKG and serial cardiac biomarkers have all been negative for acute changes. Continue treatment for chest wall pain with tramadol, acetaminophen, gabapentin. Continue PPI in case etiology is GI related. Diet ordered for breakfast. 2.HYPERTENSION - Fairly well controlled at present. Monitor and adjust antihypertensive medications as indicated. 3.DIABETES - poorly uncontrolled in the past. Will defer primary management to hospital medicine. 4.CHRONIC KIDNEY DISEASE - Creatinine 3.0 this AM. Creat 2.6 on admit and slightly improved since discharge (3.0 on 06/21). Chronic kidney disease, stage III-IV. She has been evaluated in the past by Dr. Baptiste and during last hospital admission by Dr. Torres. Avoiding nephrotoxic agents (NSAIDS) as possible. No INDIGO-I or ARB given for fear of worsening renal function. 5.SYSTOLIC CHF- acute on chronic. BNP mildly elevated, and she is not overtly orthopneic. No overt s/s heart failure and appears to be overall well compensated at this time. 6.DILATED CARDIOMYOPATHY- EF 25-30%. Has recently been planned for cardiac cath (pending improvement of renal function) to rule out ischemic cardiomyopathy. Unable to keep outpatient appt with Dr. Mcbride on 07/08 (to discuss/evaluate) as previously scheduled due to current hospital admission. 7.OBESITY- reports attempts to modify diet and lead healthier lifestyle. Weight noted to be down 10 pounds since last admission. 8.ANEMIA - chronic; stable; No overt s/s bleeding. Asymptomatic. Monitor closely. 9.DISCHARGE PLANNING- Patient has been ruled out for acute coronary syndrome. Chest pain remains atypical, EKG benign, serial cardiac isoenzymes are normal. Renal function, however, slightly worsened this AM, possibly related to IV diuresis. Ideally, not a candidate for cardiac cath at this time as she is hemodynamically stable. Continue treatment for chest wall pain. Ok from a cardiac standpoint for discharge home today. Follow up in [address] Mcbride with EKG, BMP. 07/09/17 Her chest wall pain is slightly better, but it continues somewhat Her creatinine is increased slightly. Thus, I would favor not trying to pursue an angiogram at this time. He will be done when an optimal situation with hydration could be done by Dr. Kimball The chest wall pain medicines have helped. Her cardiac isoenzymes and EKG are negative, indicating this current episode of chest pain is not ACS. Okay with me to discharge to home --on chest wall pain meds ---when you say so and Dr. Stephanie Mcbride can follow-up in the next 1-2 weeks and then decide about timing of cath. Current Visit: Yes (2) CKD stage 3 due to type 2 diabetes mellitus Status: Chronic Assessment and plan: SEE PLAN OF CARE LISTED ABOVE. Current Visit: Yes (3) Cardiomyopathy Status: Acute Assessment and plan: SEE PLAN OF CARE LISTED ABOVE. Current Visit: Yes (4) Essential hypertension Status: Chronic Assessment and plan: SEE PLAN OF CARE LISTED ABOVE. Current Visit: Yes (5) Diabetes mellitus Status: Chronic Assessment and plan: SEE PLAN OF CARE LISTED ABOVE. Current Visit: No (6) Anemia Status: Chronic Assessment and plan: SEE PLAN OF CARE LISTED ABOVE. 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 MCBRIDE (newly established care) Ms. Myers is a 51 year old female with risk factors significant for: hypertension, diabetes (poorly controlled), and obesity. She also has a history of chronic renal insufficiency and has previously been evaluated by Dr. Baptiste. She has acute on chronic systolic CHF with severely reduced EF 25-30%, NYHA class III. Patient was most recently discharged from [facility] after 4 day admission and treatment for acute pulmonary edema. Patient responded to diuresis, but did have worsening of her renal function afterward, and was evaluated by Dr. Torres. Patient was agreeable to proceeding with left heart catheterization and possible percutaneous coronary intervention, but she was deemed to be at significant high risk due to her renal dysfunction. It was felt to be most beneficial for Ms. Myers to be discharged home to follow up with Dr. Mcbride for outpatient evaluation and to discuss cardiac catheterization. Her appointment with Dr. Mcbride was actually scheduled for July 08, at 2:10 PM (date of admission; will be rescheduled). However, patient is now admitted to [facility] unit in transfer from [facility] for further evaluation of midsternal chest pain with intermittent radiation to the back and associated shortness of breath. Chest x-ray with mild underlying CHF, mild elevation of BNP 308. EKG benign for acute ischemic finding. Troponin nondetectable. Cardiology was consulted for evaluation of chest pain and dyspnea. June: Ms. Myers Exam (Progress Note) - Constitutional Vitals: Period Temp Pulse Resp BP Sys/[place] Pulse Ox Last 24 Hr 97.6 F-99.4 F 67-79 17-20 129-155/61-75 94-97 Exam: General: Present: No Apparent Distress, Other (overweight) HEENT: Present: PERRL, Normocephaly, Mucus Membranes Moist. Absent: Pallor Neck: Present: Supple Neck, Midline Trachea, No JVD/HJR, No Bruit Cardiac: Present: Reg Rate and Rhythm, No Murmur. Absent: Tachycardia, Bradycardia Lungs: Present: Clear Ascult./Percussion, No Wheeze, Rales, Rhonchi Neuro: Present: Grossly Intact. Absent: Numbness, Tingling, Resting Tremor, Essential Tremor Abdomen: Present: Soft, Active Bowel Sounds, Other (obese). Absent: Ascites, Tender, Firm, Distended Skin: Present: Clear, Other (warm, dry). Absent: Rash, Suspicious Lesions, Bruising Musculoskeletal: Present: Normal Range of Motion Extremities: Present: No Clubbing, No Cyanosis, Normal Upper Extr. Pulses (3+ bilaterally), Normal Lower Extr. Pulses (2+ bilaterally), Bilateral Pedal Edema (1-2+), Capillary Refill (normal) Result/EKG - Labs CBC & BMP: 07/09/17 05:49 07/09/17 05:49 Lab Results: I have reviewed the past 24 hour labs Labs: Laboratory Results - last 24 hr 07/08/17 07/08/17 07/08/17 09:35 11:00 15:41 WBC RBC Hgb Hct MCV MCH MCHC RDW Plt Count MPV Neut % (Auto) Lymph % (Auto) [place] % (Auto) Eos % (Auto) Baso % (Auto) Neut # (Auto) Lymph # (Auto) [place] # (Auto) Eos # (Auto) Baso # (Auto) Immature Gran % Nucleated RBC % Immature Gran # Nucleated RBCs # Immature Plt Fraction Sodium Potassium Chloride Carbon Dioxide Anion Gap BUN Creatinine GFR Calculation BUN/Creatinine Ratio Glucose POC Glucose 282 H 314 H Hemoglobin A1c Calculated Osmolality Calcium Magnesium Total Creatine Kinase 90 CK-MB (CK-2) < 1.0 Troponin I < 0.015 B-Natriuretic Peptide Triglycerides Cholesterol LDL Cholesterol VLDL Cholesterol HDL Cholesterol Heart Disease Risk Ratio Free T4 TSH 3rd Generation Urine Color Urine Appearance Urine pH Ur Specific [place] Urine Protein Urine Glucose (UA) Urine Ketones Urine Blood Urine Nitrate Urine Bilirubin Urine Urobilinogen Urine Leukocytes Urine WBC Ur Squamous Epith Cells Urine Bacteria Urine Mucus Ur Culture Indicated? 07/08/17 07/08/17 07/08/17 15:41 16:00 18:05 WBC RBC Hgb Hct MCV MCH MCHC RDW Plt Count MPV Neut % (Auto) Lymph % (Auto) [place] % (Auto) Eos % (Auto) Baso % (Auto) Neut # (Auto) Lymph # (Auto) [place] # (Auto) Eos # (Auto) Baso # (Auto) Immature Gran % Nucleated RBC % Immature Gran # Nucleated RBCs # Immature Plt Fraction Sodium Potassium Chloride Carbon Dioxide Anion Gap BUN Creatinine GFR Calculation BUN/Creatinine Ratio Glucose POC Glucose 231 H Hemoglobin A1c Calculated Osmolality Calcium Magnesium Total Creatine Kinase 92 CK-MB (CK-2) < 1.0 Troponin I < 0.015 B-Natriuretic Peptide Triglycerides Cholesterol LDL Cholesterol VLDL Cholesterol HDL Cholesterol Heart Disease Risk Ratio Free T4 TSH 3rd Generation Urine Color Yellow Urine Appearance Clear Urine pH 6.0 Ur Specific [place] 1.006 Urine Protein >=500 Urine Glucose (UA) >=500 Urine Ketones Negative Urine Blood Negative Urine Nitrate Negative Urine Bilirubin Negative Urine Urobilinogen < 2.0 H Urine Leukocytes Negative Urine WBC <1 Ur Squamous Epith Cells Occasional Urine Bacteria Occasional Urine Mucus Occasional Ur Culture Indicated? Not indicated 07/08/17 07/09/17 07/09/17 19:52 05:49 05:49 WBC 5.9 RBC 3.25 L Hgb 9.2 L Hct 27.5 L MCV 84.6 L MCH 28 MCHC 33.5 RDW 12.5 Plt Count 164 MPV 9.8 Neut % (Auto) 69.3 Lymph % (Auto) 20.7 L [place] % (Auto) 5.3 Eos % (Auto) 4.1 Baso % (Auto) 0.3 Neut # (Auto) 4.1 Lymph # (Auto) 1.2 L [place] # (Auto) 0.3 Eos # (Auto) 0.2 Baso # (Auto) 0.0 Immature Gran % 0.3 Nucleated RBC % 0.0 Immature Gran # 0.02 Nucleated RBCs # 0.00 Immature Plt Fraction 0.0 Sodium 137 Potassium 3.7 Chloride 102 Carbon Dioxide 25 Anion Gap 13.7 BUN 37 H Creatinine 2.80 H GFR Calculation 22 BUN/Creatinine Ratio 13.00 Glucose 194 H POC Glucose 263 H Hemoglobin A1c Calculated Osmolality 286.8 Calcium 8.2 L Magnesium 2.3 Total Creatine Kinase CK-MB (CK-2) Troponin I B-Natriuretic Peptide Triglycerides 102 Cholesterol 205 H LDL Cholesterol 121.0 VLDL Cholesterol 20.4 HDL Cholesterol 57 Heart Disease Risk Ratio 3.60 Free T4 TSH 3rd Generation 6.380 H Urine Color Urine Appearance Urine pH Ur Specific [place] Urine Protein Urine Glucose (UA) Urine Ketones Urine Blood Urine Nitrate Urine Bilirubin Urine Urobilinogen Urine Leukocytes Urine WBC Ur Squamous Epith Cells Urine Bacteria Urine Mucus Ur Culture Indicated? 07/09/17 07/09/17 07/09/17 05:49 05:49 05:49 WBC RBC Hgb Hct MCV MCH MCHC RDW Plt Count MPV Neut % (Auto) Lymph % (Auto) [place] % (Auto) Eos % (Auto) Baso % (Auto) Neut # (Auto) Lymph # (Auto) [place] # (Auto) Eos # (Auto) Baso # (Auto) Immature Gran % Nucleated RBC % Immature Gran # Nucleated RBCs # Immature Plt Fraction Sodium Potassium Chloride Carbon Dioxide Anion Gap BUN Creatinine GFR Calculation BUN/Creatinine Ratio Glucose POC Glucose Hemoglobin A1c 10.3 H Calculated Osmolality Calcium Magnesium Total Creatine Kinase 92 CK-MB (CK-2) < 1.0 Troponin I < 0.015 B-Natriuretic Peptide 259 H Triglycerides Cholesterol LDL Cholesterol VLDL Cholesterol HDL Cholesterol Heart Disease Risk Ratio Free T4 1.29 TSH 3rd Generation Urine Color Urine Appearance Urine pH Ur Specific [place] Urine Protein Urine Glucose (UA) Urine Ketones Urine Blood Urine Nitrate Urine Bilirubin Urine Urobilinogen Urine Leukocytes Urine WBC Ur Squamous Epith Cells Urine Bacteria Urine Mucus Ur Culture Indicated? 07/09/17 08:09 WBC RBC Hgb Hct MCV MCH MCHC RDW Plt Count MPV Neut % (Auto) Lymph % (Auto) [place] % (Auto) Eos % (Auto) Baso % (Auto) Neut # (Auto) Lymph # (Auto) [place] # (Auto) Eos # (Auto) Baso # (Auto) Immature Gran % Nucleated RBC % Immature Gran # Nucleated RBCs # Immature Plt Fraction Sodium Potassium Chloride Carbon Dioxide Anion Gap BUN Creatinine GFR Calculation BUN/Creatinine Ratio Glucose POC Glucose 235 H Hemoglobin A1c Calculated Osmolality Calcium Magnesium Total Creatine Kinase CK-MB (CK-2) Troponin I B-Natriuretic Peptide Triglycerides Cholesterol LDL Cholesterol VLDL Cholesterol HDL Cholesterol Heart Disease Risk Ratio Free T4 TSH 3rd Generation Urine Color Urine Appearance Urine pH Ur Specific [place] Urine Protein Urine Glucose (UA) Urine Ketones Urine Blood Urine Nitrate Urine Bilirubin Urine Urobilinogen Urine Leukocytes Urine WBC Ur Squamous Epith Cells Urine Bacteria Urine Mucus Ur Culture Indicated? - EKG EKG results: interpreted by me, no acute changes EKG shows: sinus rhythm Specialty Discharge - Follow Up or Referrals Follow up with: Stephanie Mcbride DO [Physician] - 1 Week (Follow up with Dr. Mcbride in 1 week or week after next with EKG, BMP, & to discuss cardiac cath. (Dr. Mcbride will not be in clinic week of 07/15-07/19 as he will be rounding in hospital.) ) I, Angelito Bolden MD, personally performed the services described in this documentation, ascribed by Savana Bynum RN in my presence, and it is both accurate and complete [id number] .
--- NOTE | 2017-07-09 17:11 | Hospitalist Progress Note ---
Assessment and Plan (1) Chest pain Status: Acute Assessment and plan: 07/09/2017: Although patient has multiple ischemic heart disease risk factors see above outlined acute myocardial infarction has been ruled out. I appreciate review and input from consulting [employer] letter carrier. Current Visit: Yes (2) Acute on chronic systolic (congestive) heart failure Status: Acute Assessment and plan: 07/09/2017: Patient has LVEF 25 through 30%. Left heart catheterization was previously recommended however because of patient's renal dysfunction the left heart catheterization procedure has been delayed. Patient has dilated cardiomyopathy medically managed with Aspirin, beta-jacob therapy, Lasix. She requires the addition of roberto inhibitor and statin therapy. Current Visit: Yes (3) Diabetes mellitus type 2 in obese Status: Acute Assessment and plan: 07/09/2017: Hemoglobin A1c measures 10.3% Improve basal and prandial insulin treatment. Formal diabetic teaching consult. Outpatient weight reduction and exercise program after completion of cardiac risk assessment. Current Visit: Yes (4) Dyslipidemia Status: Acute Assessment and plan: 07/09/2017: Fasting lipid panel total cholesterol 205, LDL 121, HDL 57 Patient takes Lipitor 40 mg p.o. q. evening. Patient is a candidate for intensive lipid-lowering therapy with target LDL certainly less than 100 likely less than 70. Increase statin dose recheck lipid panel within the next 2 months then titrate Lipitor dose accordingly. Current Visit: Yes (5) Chronic back pain Status: Acute Assessment and plan: 07/09/2017: Patient complains of chronic back pain without associated urinary incontinence or leg weakness. Continue supportive care measures with outpatient follow-up as previously scheduled. Current Visit: Yes (6) Anemia Status: Acute Assessment and plan: 07/09/2017: Likely related to chronic disease. Patient is hemodynamically stable at present. There is no indication for immediate blood product transfusion. Current Visit: Yes Hospitalist: Subjective Interval history: 07/09/2017: Patient is a 51-year-old female admitted for evaluation of chest pain. Patient describes right anterior chest pain constant without identified precipitating or relieving factors. Her ischemic heart disease risk factors include essential hypertension and positive family history and type 2 diabetes, dyslipidemia. Patient reports that her father had heart disease in his 40s. Acute myocardial infarction ruled out. Exam - Constitutional Vitals: Period Temp Pulse Resp BP Sys/[place] Pulse Ox Last 24 Hr 97.2 F-99.4 F 63-79 18-20 126-155/61-75 93-98 General appearance: over weight - Head Head exam: Present: normal inspection - Neck Neck exam: Absent: meningismus - Respiratory Respiratory exam: Present: clear to auscultation bilaterally. Absent: rales, wheezes - Cardiovascular Cardiovascular exam: Present: regular rate and rhythm - GI/Abdominal GI/Abdominal exam: Present: normal bowel sounds, distended, soft. Absent: tenderness, rebound - Extremities Exam Extremities exam: Present: edema (1+ pitting pretibial edema equal bilaterally. No asymmetric calf swelling or palpable calf cords.). Absent: calf tenderness - Neurological Exam Neurological exam: Present: alert, oriented X3 - Psychiatric Psychiatric exam: Present: flat affect - Skin Skin exam: Present: normal color, warm. Absent: rash Results - Labs CBC & BMP: 07/09/17 05:49 07/09/17 05:49 Specialty Discharge - Follow Up or Referrals Follow up with: Stephanie Oliva DO [Physician] - 1 Week (Follow up with Dr. Oliva in 1 week or week after next with EKG, BMP, & to discuss cardiac cath. (Dr. Oliva will not be in clinic week of 07/15-07/19 as he will be rounding in hospital.) )
[2017-07-09] MEDS: ATORVASTATIN 40 MG TABLET PO SCH (20:14)
[2017-07-10 05:42] LABS: Basophils % 0.6 % (0.0-0.8); Eosinophils # 0.3 10*3/uL (0.0-0.87); Eosinophils % 4.6 % (0.00-10.9); Hematocrit 27.7 VOL% (35.7-47.0); Hemoglobin 9.5 GM/DL (12.0-16.0); Immature Granulocytes % 0.3 %; Immature Granulocytes Absolute 0.02 #; Lymphocytes # 1.6 10*3/uL (1.4-4.0); Lymphocytes % 23.2 % (21.3-54.2); Mean Corpuscular HGB Conc 34.3 GM/DL (32-36); Mean Corpuscular Hemoglobin 29 PG (27-34); Mean Corpuscular Volume 84.5 FL (87-102); Monocytes # 0.4 10*3/uL (0.11-0.8); Monocytes % 6.3 % (1.7-12.7); Neutrophils # 4.5 10*3/uL (1.4-7.4); Platelet Count 164 T/CUMM (130-400); Red Blood Count 3.28 MC/CUMM (3.8-5.5); Red Cell Distribution Width 12.3 % (9.3-17.3); White Blood Count 6.9 T/CUMM (4-12)
[2017-07-10 06:06] LABS: Calcium 8.4 MG/DL (8.5-10.1); Magnesium 2.2 MG/DL (1.8-2.4); Potassium 3.7 MMOL/L (3.5-5.1)
--- NOTE | 2017-07-10 07:30 | EKG Report ---
Stationary ECG Study [facility] Test Date: 07/10/2017 7:31:51 AM Pat Name: JUAN CATALAN Department: Room: 269 Gender: F Sausage Linker: SUSSY : 1965 Requested by: Emerita Bolden Order Number: [id number] Reading MD: EMERITA BOLDEN Intervals [place] Rate: 63 P: 45 MS: 153 QRS: 66 QRSD: 101 T: 94 QT: 448 QTc: 456 Interpretive Statements SINUS RHYTHM MINIMAL ST DEPRESSION Electronically Signed On 07-10-17 13:07:16 CDT by EMERITA BOLDEN [email or web address]
--- NOTE | 2017-07-10 08:51 | Discharge Summary ---
<Delio Farooq - Last Filed: 07/10/17 10:11> Hospital Course - Hospital Course Hospital Course: Ms. Myers is a 51 year old female with a history of CHF, htn, dm, and chronic kidney disease that presents to the ED on for further evaluation of chest pain. Pt. states she began to have a sharp pain in the middle of her chest that was accompanied by shortness of breath. Pt. denies fever, chills, sweating, nausea or vomiting. Pt. does report some intermittent radiation of the pain into her back. She went to [facility] and was treated with ASA and lasix and subsequently sent here for further evaluation. Ms. Myers is known to our service as she was recently hospitalized on 06/18 for similar complaints. At that time, patient was evaluated for acute on chronic CHF. Pt. states she has an appointment to Dr. Oliva today at 230. Pt. does not know the name of her PCP but reports compliance with medication. Labs of note today are patient's BNP of 308, bun/creatinine which are 38/2.60 respectively. Pt's h&h is 9/25.8. CXR showed 'worsening obscuration retrocardiac left lower lobe' and 'chronic mild underlying CHF'. Pt was admitted to the hospitalist service for further evaluation and treatment. Cardiology was consulted to evaluate patient for chest pain. It was the recommendation of her chest pain was atypical and reproducible and noncardiac related. Cardiac enzymes remained negative. Patient's creatinine also improved over her stay. Patient was treated for chest wall pain with tramadol, Tylenol, and gabapentin. Patient's chest pain resolved. Pt is stable to be discharged. She is to follow up in [address] Oliva. Diagnosis - Discharge Diagnosis (1) Chest pain Status: Acute (2) CHF (congestive heart failure) Status: Acute (3) Essential hypertension Status: Chronic (4) Anemia Status: Chronic (5) Chronic kidney disease Status: Chronic Specialty Discharge - Follow Up or Referrals Follow up with: Stephanie Oliva DO [Physician] - 1 Week (Follow up with Dr. Oliva in 1 week or week after next with EKG, BMP, & to discuss cardiac cath. (Dr. Oliva will not be in clinic week of 07/15-07/19 as he will be rounding in hospital.) ) Discharge Plan - Discharge Medications New Atorvastatin [Lipitor] 40 mg PO BEDTIME tablet Gabapentin Cap/Tab [Neurontin Cap/Tab] 100 mg PO TID capsule Insulin Lispro [HumaLOG] See Protocol SUBCUT ACHS unit traMADol TAB [Ultram] 50 mg PO BID tablet Continue Furosemide Tab [Lasix Tab] 80 mg PO DAILY #90 tablet Insulin Detemir [Levemir FlexPen] 40 unit SUBCUT BEDTIME 60 Days Aspirin EC Tab 81 mg PO DAILY Isosorbide Mononitrate [Imdur] 0.5 tablet PO DAILY Carvedilol [Coreg] 3.125 mg PO BID #100 tablet - Follow Up or Referral Follow Up: Stephanie Oliva DO [Physician] - 1 Week (Follow up with Dr. Oliva in 1 week or week after next with EKG, BMP, & to discuss cardiac cath. (Dr. Oliva will not be in clinic week of 07/15-07/19 as he will be rounding in hospital.) ) - Forms/Instructions Exam - Constitutional Vitals: Period Temp Pulse Resp BP Sys/[place] Pulse Ox Last 24 Hr 97.1 F-97.6 F 62-71 16-20 115-131/61-68 95-98 Discharge Results Labs on day of discharge: Labs from last 24 hours 07/11/17 07/11/17 07/10/17 11:38 08:05 19:50 POC Glucose 231 H 212 H 156 H 07/10/17 07/10/17 16:07 12:24 POC Glucose 191 H 281 H DS: Provider Date of admission: 07/08/17 07:12 Primary care physician: Ellie Akhtar MD Attending physician on admission: Andre Carey Consults: 07/08/17 08:56 Consult to Physician [CONS] Routine Comment: Consulting Provider: Angelito Bolden Consult to Specialist Group: Cardiology Person Notified: LASHANDA Date Notified: 07/08/17 Time Notified: 09:30 Consult Notification Comment: CALLED OFFICE AT 0930 Discharging clinician: Delio Farooq NP <Christos Tapia III - Last Filed: 07/11/17 12:11> Diagnosis - Discharge Diagnosis (1) Chest pain Status: Acute (2) Acute on chronic systolic (congestive) heart failure Status: Acute (3) Diabetes mellitus type 2 in obese Status: Acute (4) Dyslipidemia Status: Acute (5) Chronic back pain Status: Acute (6) Anemia Status: Acute Discharge Plan - Discharge Data Discharge Diet: low fat, low cholesterol, low salt diet Activity: resume usual activities as tolerated Hygiene: no restrictions Weight Bearing at Discharge: full weight bearing Contact your physician if you experience:: Shortness of breath
[2017-07-10] MEDS: FUROSEMIDE 40 MG/4 ML VIAL IV SCH ×2 (09:45→17:07)
[2017-07-10] MEDS: INSULIN LISPRO 100 UNIT/ML SUBCUT SCH ×4 (09:48→21:41)
[2017-07-10] MEDS: traMADol 50 MG TABLET PO SCH ×2 (09:49→21:42)
[2017-07-10] MEDS: ASPIRIN EC 81 MG TABLET PO SCH (09:49)
[2017-07-10] MEDS: ACETAMINOPHEN 325 MG TABLET PO SCH ×2 (09:49→21:42)
[2017-07-10] MEDS: PANTOPRAZOLE 40 MG TABLET PO SCH (09:49)
[2017-07-10] MEDS: ISOSORBIDE MONONITRATE 30 MG TABLET PO SCH (09:49)
[2017-07-10] MEDS: CARVEDILOL 3.125 MG TABLET PO SCH ×2 (09:49→21:42)
[2017-07-10] MEDS: GABAPENTIN 100 MG CAPSULE PO SCH ×3 (10:02→21:43)
--- NOTE | 2017-07-10 13:34 | Cardiology Progress Note ---
Fletcher Gale Vanessa RN, am scribing for, and in the presence of, Angelito Bolden MD 13:33. Assessment and Plan - Time spent with patient Time spent with patient: Greater than 30 minutes (1) Chest pain Status: Acute Assessment and plan: 51-year-old female with past medical history of hypertension, poorly controlled diabetes, obesity, and chronic kidney disease. She has a dilated and acute on chronic systolic CHF with decreased EF 25-30%. Recently plan to undergo cardiac catheterization pending improvement of renal function. She is now admitted with right-sided chest pain, minimal shortness of breath. June ASSESSMENT/PLAN: 1.CHEST PAIN- atypical. Chest wall pain is reproducible with palpation of area. EKG and cardiac biomarkers have been negative for acute changes. 2.HYPERTENSION - Fairly well controlled at present. Monitor and adjust antihypertensive medications as indicated. 3.DIABETES - poorly uncontrolled in the past. Will defer primary management to hospital medicine. 4.CHRONIC KIDNEY DISEASE - Creatinine 2.6 this admission and slightly improved since discharge (3.0 on 06/21). Chronic kidney disease, stage III-IV. She has been evaluated in the past by Dr. Baptiste and during last hospital admission by Dr. Torres. Avoiding nephrotoxic agents as possible. No INDIGO-I or ARB given for fear of worsening renal function. 5.SYSTOLIC CHF- acute on chronic. BNP mildly elevated, and she is not overtly orthopneic. No overt s/s heart failure and appears to be overall well compensated at this time. 6.DILATED CARDIOMYOPATHY- EF 25-30%. Has recently been planned for cardiac cath (pending improvement of renal function) to rule out ischemic cardiomyopathy. Unable to keep outpatient appt with Dr. Mcbride today (to discuss/evaluate) as previously scheduled due to current hospital admission. 7.OBESITY- reports attempts to modify diet and lead healthier lifestyle. Weight noted to be down 10 pounds since last admission. 8.ANEMIA - chronic. No overt s/s bleeding. Asymptomatic. Monitor closely. Her chest pain is atypical and reproducible, exactly the same. So far, cardiac isoenzymes are negative. Her creatinine is improved but may or may not be optimal Plan/recommendation: Treat for chest wall pain-tramadol, Tylenol, gabapentin Avoid NSAIDs because her renal insufficiency Avoid INDIGO inhibitor because of her renal insufficiency EKG every morning 3 to see if it changes With treating chest wall pain if she is better we can consider tomorrow whether let her go home and give her more time for renal recovery to occur before she undergoes a heart cath by Dr. Kimball or reconsider it sooner rather than later-- - partly will depend on her cardiac isoenzymes and how she is doing in her renal function We will keep her n.p.o. after midnight in case she needs a cath We will place her on a proton pump inhibitor if she is not on one, just in case some component is GI related Thank you for allowing me to participate in this patient's care. June ASSESSMENT/PLAN: 1.CHEST PAIN- remains atypical. Chest wall pain is reproducible with palpation of area. EKG and serial cardiac biomarkers have all been negative for acute changes. Continue treatment for chest wall pain with tramadol, acetaminophen, gabapentin. Continue PPI in case etiology is GI related. Diet ordered for breakfast. 2.HYPERTENSION - Fairly well controlled at present. Monitor and adjust antihypertensive medications as indicated. 3.DIABETES - poorly uncontrolled in the past. Will defer primary management to hospital medicine. 4.CHRONIC KIDNEY DISEASE - Creatinine 3.0 this AM. Creat 2.6 on admit and slightly improved since discharge (3.0 on 06/21). Chronic kidney disease, stage III-IV. She has been evaluated in the past by Dr. Baptiste and during last hospital admission by Dr. Torres. Avoiding nephrotoxic agents (NSAIDS) as possible. No INDIGO-I or ARB given for fear of worsening renal function. 5.SYSTOLIC CHF- acute on chronic. BNP mildly elevated, and she is not overtly orthopneic. No overt s/s heart failure and appears to be overall well compensated at this time. 6.DILATED CARDIOMYOPATHY- EF 25-30%. Has recently been planned for cardiac cath (pending improvement of renal function) to rule out ischemic cardiomyopathy. Unable to keep outpatient appt with Dr. Mcbride on 07/08 (to discuss/evaluate) as previously scheduled due to current hospital admission. 7.OBESITY- reports attempts to modify diet and lead healthier lifestyle. Weight noted to be down 10 pounds since last admission. 8.ANEMIA - chronic; stable; No overt s/s bleeding. Asymptomatic. Monitor closely. 9.DISCHARGE PLANNING- Patient has been ruled out for acute coronary syndrome. Chest pain remains atypical, EKG benign, serial cardiac isoenzymes are normal. Renal function, however, slightly worsened this AM, possibly related to IV diuresis. Ideally, not a candidate for cardiac cath at this time as she is hemodynamically stable. Continue treatment for chest wall pain. Ok from a cardiac standpoint for discharge home today. Follow up in [address] Mcbride with EKG, BMP. 07/09/17 Her chest wall pain is slightly better, but it continues somewhat Her creatinine is increased slightly. Thus, I would favor not trying to pursue an angiogram at this time. He will be done when an optimal situation with hydration could be done by Dr. Kimball The chest wall pain medicines have helped. Her cardiac isoenzymes and EKG are negative, indicating this current episode of chest pain is not ACS. Okay with me to discharge to home --on chest wall pain meds ---when you say so and Dr. Stephanie Mcbride can follow-up in the next 1-2 weeks and then decide about timing of cath. June ASSESSMENT/PLAN: 1.CHEST PAIN- atypical, non-cardiac. Chest wall pain is reproducible with palpation of area but some improved today. EKG and serial cardiac iso's negative for acute changes. Continue treatment for chest wall pain with tramadol , acetaminophen, gabapentin. Continue PPI in case etiology is GI related. 2.HYPERTENSION - chronic; overall controlled currently. Continue current antihypertensive regimen. 3.DIABETES - poorly uncontrolled in the past. Will defer primary management to hospital medicine. 4.CHRONIC KIDNEY DISEASE - Creat 2.7 this AM. Chronic kidney disease, stage III -IV. Has been evaluated in the past by Dr. Baptiste, and during last hospital admission by Dr. Torres. Avoiding nephrotoxic agents (NSAIDS) as possible. No INDIGO- I or ARB given for fear of worsening renal function. 5.SYSTOLIC CHF- acute on chronic. BNP mildly elevated on admit and has decreased. No overt orthopnea or other s/s heart failure. Appears to be overall fairly well compensated at this time. 6.DILATED CARDIOMYOPATHY- EF 25-30%. Has recently been planned for cardiac cath (pending improvement of renal function) to rule out ischemic cardiomyopathy. Unable to keep outpatient appt with Dr. Mcbride on 07/08 (to discuss/evaluate) as previously scheduled due to current hospital admission. 7.OBESITY- reports attempts to modify diet and lead healthier lifestyle. Weight noted to be down 10 pounds since last admission. 8.ANEMIA - chronic; stable; No overt s/s bleeding. Asymptomatic. Monitor closely. 9.DISCHARGE PLANNING- Patient has been ruled out for acute coronary syndrome. Chest pain remains atypical, EKG benign, serial cardiac isoenzymes are normal. Due to significant renal dysfunction and no ongoing ACS/angina, would prefer to wait for cardiac catheterization. Continue treatment for chest wall pain. Ok from a cardiac standpoint for discharge home today. Follow up in 1 week with primary retanner Dr. Mcbride with EKG, BMP. Can further discuss and evaluate for cardiac cath at follow up. Current Visit: Yes (2) CKD stage 3 due to type 2 diabetes mellitus Status: Chronic Assessment and plan: SEE PLAN OF CARE LISTED ABOVE. Current Visit: Yes (3) Cardiomyopathy Status: Acute Assessment and plan: SEE PLAN OF CARE LISTED ABOVE. Current Visit: Yes (4) Essential hypertension Status: Chronic Assessment and plan: SEE PLAN OF CARE LISTED ABOVE. Current Visit: Yes (5) Diabetes mellitus Status: Chronic Assessment and plan: SEE PLAN OF CARE LISTED ABOVE. Current Visit: No (6) Anemia Status: Chronic Assessment and plan: SEE PLAN OF CARE LISTED ABOVE. Current Visit: No Cardiology - PN: Subj Interval history: PRIMARY DURAL MECHANIC: DR. MCBRIDE (newly established care) Ms. Myers is a 51 year old female with risk factors significant for: hypertension, diabetes (poorly controlled), and obesity. She also has a history of chronic renal insufficiency and has previously been evaluated by Dr. Baptiste. She has acute on chronic systolic CHF with severely reduced EF 25-30%, NYHA class III. Patient was most recently discharged from [facility] after 4 day admission and treatment for acute pulmonary edema. Patient responded to diuresis, but did have worsening of her renal function afterward, and was evaluated by Dr. Torres. Patient was agreeable to proceeding with left heart catheterization and possible percutaneous coronary intervention, but she was deemed to be at significant high risk due to her renal dysfunction. It was felt to be most beneficial for Ms. Myers to be discharged home to follow up with Dr. Mcbride for outpatient evaluation and to discuss cardiac catheterization. Her appointment with Dr. Mcbride was actually scheduled for July 08, at 2:10 PM (date of admission; will be rescheduled). However, patient is now admitted to [facility] tele unit in transfer from [facility] for further evaluation of midsternal chest pain with intermittent radiation to the back and associated shortness of breath. Chest x-ray with mild underlying CHF, mild elevation of BNP 308. EKG benign for acute ischemic finding. Troponin nondetectable. Cardiology was consulted for evaluation of chest pain and dyspnea. June: No acute changes or new findings in patient's hemodynamic status overnight. She is resting quietly this morning without acute distress or need noted. Continues to have some reproducible right sided chest wall pain but some improved today. No dyspnea. Appetite is good. No N/V. Vitals stable, SBP 125-145 mmHg range. Creatinine is stable, 2.7 this AM. Sinus rhythm with HR 60s. No ectopy or dysrhythmia. Ok from cardiac standpoint to discharge home today if ok with attending. She can follow up with primary retanner Dr. Mcbride in 1-2 weeks to discuss cardiac cath in future. Exam (Progress Note) - Constitutional Vitals: Period Temp Pulse Resp BP Sys/[place] Pulse Ox Last 24 Hr 97.0 F-97.8 F 63-65 18-20 121-145/57-75 93-99 Exam: General: Present: No Apparent Distress, Other (overweight) HEENT: Present: PERRL, Normocephaly, Mucus Membranes Moist. Absent: Pallor Neck: Present: Supple Neck, Midline Trachea, No JVD/HJR, No Bruit Cardiac: Present: Reg Rate and Rhythm, No Murmur. Absent: Tachycardia, Bradycardia Lungs: Present: Clear Ascult./Percussion, No Wheeze, Rales, Rhonchi Neuro: Present: Grossly Intact. Absent: Numbness, Tingling, Resting Tremor, Essential Tremor Abdomen: Present: Soft, Active Bowel Sounds, Other (obese). Absent: Ascites, Tender, Firm, Distended Skin: Present: Clear, Other (warm, dry). Absent: Rash, Suspicious Lesions, Bruising Musculoskeletal: Present: Normal Range of Motion Extremities: Present: No Clubbing, No Cyanosis, Normal Upper Extr. Pulses (3+ bilaterally), Normal Lower Extr. Pulses (2+ bilaterally), Bilateral Pedal Edema (1-2+), Capillary Refill (normal) Result/EKG - Labs CBC & BMP: 07/10/17 05:20 07/10/17 05:20 Lab Results: I have reviewed the past 24 hour labs Labs: Laboratory Results - last 24 hr 07/09/17 07/09/17 07/09/17 11:47 16:10 20:02 WBC RBC Hgb Hct MCV MCH MCHC RDW Plt Count MPV Neut % (Auto) Lymph % (Auto) Knott % (Auto) Eos % (Auto) Baso % (Auto) Neut # (Auto) Lymph # (Auto) Knott # (Auto) Eos # (Auto) Baso # (Auto) Immature Gran % Nucleated RBC % Immature Gran # Nucleated RBCs # Immature Plt Fraction Sodium Potassium Chloride Carbon Dioxide Anion Gap BUN Creatinine GFR Calculation BUN/Creatinine Ratio Glucose POC Glucose 200 H 159 H 177 H Calculated Osmolality Calcium Magnesium 07/10/17 07/10/17 07/10/17 05:20 05:20 07:42 WBC 6.9 RBC 3.28 L Hgb 9.5 L Hct 27.7 L MCV 84.5 L MCH 29 MCHC 34.3 RDW 12.3 Plt Count 164 MPV 10.0 Neut % (Auto) 65.0 Lymph % (Auto) 23.2 Knott % (Auto) 6.3 Eos % (Auto) 4.6 Baso % (Auto) 0.6 Neut # (Auto) 4.5 Lymph # (Auto) 1.6 Knott # (Auto) 0.4 Eos # (Auto) 0.3 Baso # (Auto) 0.0 Immature Gran % 0.3 Nucleated RBC % 0.0 Immature Gran # 0.02 Nucleated RBCs # 0.00 Immature Plt Fraction 0.0 Sodium 136 Potassium 3.7 Chloride 102 Carbon Dioxide 24 Anion Gap 13.7 BUN 38 H Creatinine 2.70 H GFR Calculation 23 BUN/Creatinine Ratio 14.00 Glucose 135 H POC Glucose 194 H Calculated Osmolality 282.0 Calcium 8.4 L Magnesium 2.2 - EKG EKG results: interpreted by me, no acute changes EKG shows: sinus rhythm Specialty Discharge - Follow Up or Referrals Follow up with: Stephanie Mcbride DO [Physician] - 1 Week (Follow up with Dr. Mcbride in 1 week or week after next with EKG, BMP, & to discuss cardiac cath. (Dr. Mcbride will not be in clinic week of 07/15-07/19 as he will be rounding in hospital.) ) I, Angelito Bolden MD, personally performed the services described in this documentation, ascribed by Savana Bynum RN in my presence, and it is both accurate and complete [id number] .
[2017-07-10] MEDS: ATORVASTATIN 40 MG TABLET PO SCH (21:43)
--- NOTE | 2017-07-11 07:19 | EKG Report ---
Stationary ECG Study [facility] Test Date: 07/11/2017 7:19:41 AM Pat Name: JUAN CATALAN Department: Room: 269 Gender: F Building Services Engineer: SUSSY : 1965 Requested by: Emeriat Bolden Order Number: [id number] Reading MD: EMERITA BOLDEN Intervals Slater Rate: 62 P: 18 MT: 165 QRS: -14 QRSD: 98 T: 70 QT: 478 QTc: 482 Interpretive Statements SINUS RHYTHM NONSPECIFIC T-WAVE ABNORMALITY PROLONGED QT INTERVAL Electronically Signed On 07-11-17 09:29:19 CDT by EMERITA BOLDEN [email or web address]
[2017-07-11] MEDS: ACETAMINOPHEN 325 MG TABLET PO SCH (09:06)
[2017-07-11] MEDS: traMADol 50 MG TABLET PO SCH (09:07)
[2017-07-11] MEDS: PANTOPRAZOLE 40 MG TABLET PO SCH (09:07)
[2017-07-11] MEDS: CARVEDILOL 3.125 MG TABLET PO SCH (09:07)
[2017-07-11] MEDS: ISOSORBIDE MONONITRATE 30 MG TABLET PO SCH (09:07)
[2017-07-11] MEDS: ASPIRIN EC 81 MG TABLET PO SCH (09:07)
[2017-07-11] MEDS: GABAPENTIN 100 MG CAPSULE PO SCH (09:08)
[2017-07-11] MEDS: FUROSEMIDE 40 MG/4 ML VIAL IV SCH (09:09)
[2017-07-11] MEDS: INSULIN LISPRO 100 UNIT/ML SUBCUT SCH (09:09)
[2017-07-11 11:57] VITALS: BP 120/65
--- NOTE | 2017-07-12 00:03 | Cardiology Progress Note ---
Fletcher Gale Vanessa RN, am scribing for, and in the presence of, Angelito Bolden MD 00:02. Assessment and Plan - Time spent with patient Time spent with patient: Greater than 30 minutes (1) Chest pain Status: Acute Assessment and plan: 51-year-old female with past medical history of hypertension, poorly controlled diabetes, obesity, and chronic kidney disease. She has a dilated and acute on chronic systolic CHF with decreased EF 25-30%. Recently plan to undergo cardiac catheterization pending improvement of renal function. She is now admitted with right-sided chest pain, minimal shortness of breath. ACS/AMI ruled out. June ASSESSMENT/PLAN: 1.CHEST PAIN- atypical, non-cardiac. Some continued chest wall pain with palpation of area but is reproducible. EKG and serial cardiac iso's negative for acute changes. Continue treatment for chest wall pain with tramadol, acetaminophen, gabapentin. PPI was also continue for possible GI etiology. 2.HYPERTENSION - chronic; overall controlled currently. Continue current plan of care at discharge per 3.DIABETES - poorly uncontrolled in the past. Deferred primary management to attending physician. 4.CHRONIC KIDNEY DISEASE -stable, most recent creatinine level 2.7. Chronic kidney disease, stage III-IV. Has been evaluated by nephrology outpatient and during last hospital admission. Avoiding nephrotoxic agents (NSAIDS) as possible. No INDIGO-I or ARB given for fear of worsening renal function. 5.SYSTOLIC CHF- acute on chronic. Mild elevation of BNP upon admission and has since trended downward. Appears to be overall well compensated at this time with no overt S/S heart failure. 6.DILATED CARDIOMYOPATHY- EF 25-30%. Has recently been planned for cardiac cath (pending improvement of renal function) to rule out ischemic cardiomyopathy. Reschedule outpatient appointment which was initially planned for 07/08 (day of admission). 7.OBESITY-caloric intake restriction and dietary counseling. Reports 10 pound weight loss since previous hospital discharge. 8.ANEMIA - chronic; stable; No overt s/s bleeding. Asymptomatic. Monitor closely. 9.DISCHARGE PLANNING- Patient has been ruled out for acute coronary syndrome. Chest pain remains atypical, EKG benign, serial cardiac isoenzymes are normal. Due to significant renal dysfunction and no ongoing ACS/angina, would prefer to wait for cardiac catheterization. Continue treatment for chest wall pain. Ok from a cardiac standpoint for discharge home today. Follow up in 1 week with primary public health professor Dr. Mcbride with EKG, BMP. Can further discuss and evaluate for cardiac cath at follow up. Plan/recommendation: Left chest wall pain is less Creatinine is about the same For discharge today and follow with Dr. Stephanie Kimball (2) CKD stage 3 due to type 2 diabetes mellitus Status: Chronic Assessment and plan: SEE PLAN OF CARE LISTED ABOVE. (3) Cardiomyopathy Status: Acute Assessment and plan: SEE PLAN OF CARE LISTED ABOVE. (4) Essential hypertension Status: Chronic Assessment and plan: SEE PLAN OF CARE LISTED ABOVE. (5) Diabetes mellitus Status: Chronic Assessment and plan: SEE PLAN OF CARE LISTED ABOVE. (6) Anemia Status: Chronic Assessment and plan: SEE PLAN OF CARE LISTED ABOVE. Cardiology - PN: Subj Interval history: PRIMARY LICENSED OCCUPATIONAL THERAPIST: DR. MCBRIDE Ms. Myers is a 51 year old female with risk factors significant for: hypertension, diabetes (poorly controlled), and obesity. She also has a history of chronic renal insufficiency and has previously been evaluated by Dr. Baptiste. She has acute on chronic systolic CHF with severely reduced EF 25-30%, NYHA class III. Patient was most recently discharged from [facility] after 4 day admission and treatment for acute pulmonary edema. Patient responded to diuresis, but did have worsening of her renal function afterward, and was evaluated by Dr. Torres. Patient was agreeable to proceeding with left heart catheterization and possible percutaneous coronary intervention, but she was deemed to be at significant high risk due to her renal dysfunction. It was felt to be most beneficial for Ms. Myers to be discharged home to follow up with Dr. Mcbride for outpatient evaluation and to discuss cardiac catheterization. Her appointment with Dr. Mcbride was actually scheduled for July 08, at 2:10 PM (date of admission; will be rescheduled). However, patient is now admitted to [facility] tele unit in transfer from [facility] for further evaluation of midsternal chest pain with intermittent radiation to the back and associated shortness of breath. Chest x-ray with mild underlying CHF, mild elevation of BNP 308. EKG benign for acute ischemic finding. Troponin nondetectable. Cardiology was consulted for evaluation of chest pain and dyspnea. June: Ms. Myers is sitting up on side of bed this morning. Son is present with her at bedside. Ms. Myers is hopeful to be discharged home today. Patient's chest wall pain has improved with current plan of care. No shortness of breath. Appetite is good. Vital signs stable, and she has been afebrile. From cardiac standpoint, okay for discharge home today. Schedule follow-up with Dr. Mcbride in clinic in 1 week. Exam (Progress Note) - Constitutional Vitals: Period Temp Pulse Resp BP Sys/[place] Pulse Ox Last 24 Hr 97.1 F-97.6 F 62-71 16-20 115-131/61-69 95-98 Exam: General: Present: No Apparent Distress, Other (overweight) HEENT: Present: PERRL, Normocephaly, Mucus Membranes Moist. Absent: Pallor Neck: Present: Supple Neck, Midline Trachea, No JVD/HJR, No Bruit Cardiac: Present: Reg Rate and Rhythm, No Murmur. Absent: Tachycardia, Bradycardia Lungs: Present: Clear Ascult./Percussion, No Wheeze, Rales, Rhonchi Neuro: Present: Grossly Intact. Absent: Numbness, Tingling, Resting Tremor, Essential Tremor Abdomen: Present: Soft, Active Bowel Sounds, Other (obese). Absent: Ascites, Tender, Firm, Distended Skin: Present: Clear, Other (warm, dry). Absent: Rash, Suspicious Lesions, Bruising Musculoskeletal: Present: Normal Range of Motion Extremities: Present: No Clubbing, No Cyanosis, Normal Upper Extr. Pulses (3+ bilaterally), Normal Lower Extr. Pulses (2+ bilaterally), Bilateral Pedal Edema (1-2+), Capillary Refill (normal) Result/EKG - Labs CBC & BMP: 07/10/17 05:20 07/10/17 05:20 Lab Results: I have reviewed the past 24 hour labs Labs: Laboratory Results - last 24 hr 07/10/17 07/10/17 07/10/17 12:24 16:07 19:50 POC Glucose 281 H 191 H 156 H 07/11/17 08:05 POC Glucose 212 H - EKG EKG results: interpreted by me, no acute changes EKG shows: sinus rhythm Specialty Discharge - Follow Up or Referrals Follow up with: Stephanie Mcbride DO [Physician] - 07/24/17 8:00 am (July 24 - arrive at 8:00 AM for lab work, appt with Dr. Mcbride at 8:40. Follow up with Dr. Mcbride in 1 week or week after next with EKG, BMP, & to discuss cardiac cath. (Dr. Mcbride will not be in clinic week of 07/15-07/19 as he will be rounding in hospital.) ) I, Angelito Bolden MD, personally performed the services described in this documentation, ascribed by Savana Bynum RN in my presence, and it is both accurate and complete .
== END 2017-07-11 15:30 | disposition home or self-care (01) | DRG 291 ==
LOC: EDUNIT# → EDBD → N.ED 05:41 → N.EDINP 07:12 → SUATTDRO 07:12 → N.EDINP 08:47 → N.TELES 09:09
PROVIDERS: ATTEND Internal Medicine

== ENCOUNTER 2017-09-30 21:52 | Observation (INO) ==
[2017-09-30] MEDS ORDERED: DEXTROSE 50% 25 GM/50 ML VIAL IV PRN (23:05)
[2017-09-30] MEDS ORDERED: GLUCAGON 1 MG VIAL IM PRN (23:05)
[2017-09-30] MEDS ORDERED: MORPHINE 2 MG/1 ML SYRINGE IV PRN (23:05)
[2017-09-30] MEDS ORDERED: ACETAMINOPHEN 325 MG TABLET PO PRN (23:05)
[2017-09-30] MEDS ORDERED: ASPIRIN 325 MG TABLET PO ONE (23:11)
[2017-10-01] MEDS: HEPARIN 5,000 UNIT/1 ML VIAL SUBCUT SCH ×5 (00:19→23:55)
[2017-10-01 01:33] LABS: Basophils % 0.5 % (0.0-0.8); Eosinophils # 0.3 10*3/uL (0.0-0.87); Eosinophils % 3.7 % (0.00-10.9); Hematocrit 26.6 VOL% (35.7-47.0); Hemoglobin 9.1 GM/DL (12.0-16.0); Immature Granulocytes % 0.3 %; Immature Granulocytes Absolute 0.02 #; Lymphocytes % 25.4 % (21.3-54.2); Mean Corpuscular HGB Conc 34.2 GM/DL (32-36); Mean Corpuscular Hemoglobin 29 PG (27-34); Mean Platelet Volume 9.9 FL (9.6-12.0); Monocytes # 0.4 10*3/uL (0.11-0.8); Monocytes % 5.7 % (1.7-12.7); Neutrophils % 64.4 % (38.7-73.9); Platelet Count 175 T/CUMM (130-400); Red Blood Count 3.13 MC/CUMM (3.8-5.5); Red Cell Distribution Width 13.7 % (9.3-17.3); White Blood Count 7.8 T/CUMM (4-12)
[2017-10-01 09:53] LABS: Bilirubin,Total 0.8 MG/DL (0.2-1.0); Calcium 7.9 MG/DL (8.5-10.1); Magnesium 2.4 MG/DL (1.8-2.4); Osmolality,Calculated 291.8 MOS/KG (273-304); Potassium 3.7 MMOL/L (3.5-5.1); Total Protein 5.7 G/DL (6.4-8.3)
[2017-10-01 09:54] LABS: Risk Ratio 3.9
[2017-10-01] MEDS: INSULIN LISPRO 100 UNIT/ML SUBCUT SCH ×4 (11:37→21:36)
[2017-10-01] MEDS: FUROSEMIDE 40 MG/4 ML VIAL IV SCH ×2 (13:39→15:16)
[2017-10-01] MEDS: ONDANSETRON 4 MG/2 ML VIAL IV PRN (19:52)
[2017-10-02 05:45] LABS: Basophils % 0.3 % (0.0-0.8); Eosinophils # 0.1 10*3/uL (0.0-0.87); Eosinophils % 1.9 % (0.00-10.9); Hematocrit 26.6 VOL% (35.7-47.0); Hemoglobin 9.2 GM/DL (12.0-16.0); Immature Granulocytes % 0.9 %; Immature Granulocytes Absolute 0.06 #; Lymphocytes # 0.9 10*3/uL (1.4-4.0); Lymphocytes % 12.6 % (21.3-54.2); Mean Corpuscular HGB Conc 34.6 GM/DL (32-36); Mean Corpuscular Hemoglobin 30 PG (27-34); Mean Corpuscular Volume 85.8 FL (87-102); Mean Platelet Volume 10.4 FL (9.6-12.0); Monocytes # 0.3 10*3/uL (0.11-0.8); Monocytes % 4.4 % (1.7-12.7); Neutrophils # 5.4 10*3/uL (1.4-7.4); Neutrophils % 79.9 % (38.7-73.9); Platelet Count 161 T/CUMM (130-400); Red Cell Distribution Width 13.7 % (9.3-17.3); White Blood Count 6.8 T/CUMM (4-12)
[2017-10-02 06:08] LABS: Calcium 7.6 MG/DL (8.5-10.1); Magnesium 2.4 MG/DL (1.8-2.4); Osmolality,Calculated 287.3 MOS/KG (273-304); Potassium 3.6 MMOL/L (3.5-5.1)
[2017-10-02 06:36] LABS: Free T4 (Free Thyroxine) 1.01 NG/DL (0.76-1.46); Thyroid Stimulating Hormone 2.25 uIU/ml (0.358-3.74)
[2017-10-02] MEDS: INSULIN LISPRO 100 UNIT/ML SUBCUT SCH ×4 (10:34→22:11)
[2017-10-02] MEDS: FUROSEMIDE 40 MG/4 ML VIAL IV SCH (10:50)
[2017-10-02] MEDS: HEPARIN 5,000 UNIT/1 ML VIAL SUBCUT SCH ×2 (10:51→17:04)
[2017-10-02] MEDS: ISOSORBIDE MONONITRATE 30 MG TABLET PO SCH (12:50)
[2017-10-02] MEDS: COLLAGENASE OINT 30 GM TUBE TOP SCH (12:50)
[2017-10-02] MEDS ORDERED: POTASSIUM CHLORIDE 20 MEQ TABLET PO ONE (13:08)
[2017-10-02] MEDS: CLINDAMYCIN 150 MG CAPSULE PO SCH ×2 (14:26→22:10)
[2017-10-02] MEDS: GABAPENTIN 100 MG CAPSULE PO SCH ×2 (14:26→22:10)
[2017-10-02] MEDS: ASCORBIC ACID 500 MG TABLET PO SCH ×2 (14:26→22:10)
[2017-10-02] MEDS ORDERED: POLYVINYL ALCOHOL 1.4% OPH SOLN 15 ML BOTTLE BOTH EYES PRN (14:35)
[2017-10-02] MEDS: ONDANSETRON 4 MG/2 ML VIAL IV PRN ×2 (14:36→22:11)
[2017-10-02] MEDS ORDERED: ATORVASTATIN 40 MG TABLET PO SCH (21:00)
[2017-10-02] MEDS ORDERED: CARVEDILOL 3.125 MG TABLET PO SCH (21:00)
[2017-10-02] MEDS: CARVEDILOL 6.25 MG TABLET PO SCH (22:10)
[2017-10-03] MEDS: HEPARIN 5,000 UNIT/1 ML VIAL SUBCUT SCH ×2 (01:29→09:31)
[2017-10-03 04:39] LABS: Basophils % 0.3 % (0.0-0.8); Eosinophils # 0.1 10*3/uL (0.0-0.87); Eosinophils % 1.7 % (0.00-10.9); Hematocrit 25.6 VOL% (35.7-47.0); Hemoglobin 8.6 GM/DL (12.0-16.0); Immature Granulocytes % 0.9 %; Immature Granulocytes Absolute 0.06 #; Lymphocytes # 1.5 10*3/uL (1.4-4.0); Lymphocytes % 22.5 % (21.3-54.2); Mean Corpuscular HGB Conc 33.6 GM/DL (32-36); Mean Corpuscular Hemoglobin 29 PG (27-34); Mean Corpuscular Volume 86.2 FL (87-102); Mean Platelet Volume 10.1 FL (9.6-12.0); Monocytes # 0.4 10*3/uL (0.11-0.8); Monocytes % 5.9 % (1.7-12.7); Neutrophils # 4.5 10*3/uL (1.4-7.4); Neutrophils % 68.7 % (38.7-73.9); Platelet Count 170 T/CUMM (130-400); Red Blood Count 2.97 MC/CUMM (3.8-5.5); Red Cell Distribution Width 13.4 % (9.3-17.3); White Blood Count 6.5 T/CUMM (4-12)
[2017-10-03 05:04] LABS: Calcium 7.6 MG/DL (8.5-10.1); Magnesium 2.5 MG/DL (1.8-2.4); Osmolality,Calculated 286.3 MOS/KG (273-304); Potassium 4.2 MMOL/L (3.5-5.1)
[2017-10-03] MEDS: CLINDAMYCIN 150 MG CAPSULE PO SCH ×2 (06:32→13:19)
[2017-10-03] MEDS ORDERED: ASPIRIN EC 81 MG TABLET PO SCH (09:00)
[2017-10-03] MEDS ORDERED: FUROSEMIDE 80 MG TABLET PO SCH (09:00)
[2017-10-03] MEDS: ASCORBIC ACID 500 MG TABLET PO SCH (09:31)
[2017-10-03] MEDS: GABAPENTIN 100 MG CAPSULE PO SCH (09:31)
[2017-10-03] MEDS: CARVEDILOL 6.25 MG TABLET PO SCH (09:31)
[2017-10-03] MEDS: ISOSORBIDE MONONITRATE 30 MG TABLET PO SCH (09:31)
[2017-10-03] MEDS: INSULIN LISPRO 100 UNIT/ML SUBCUT SCH ×2 (09:32→11:48)
[2017-10-03] MEDS: COLLAGENASE OINT 30 GM TUBE TOP SCH (09:33)
[2017-10-03 11:54] VITALS: BP 145/69
== END 2017-10-03 13:40 | disposition home or self-care (01) ==
LOC: N.EDINP 21:52 → N.ED 21:52 → N.TELEN 23:14
PROVIDERS: ADMIT Internal Medicine; ATTEND Internal Medicine

== ENCOUNTER 2018-01-21 20:41 | Inpatient (IN) ==
[2018-01-21] MEDS ORDERED: GLUCAGON 1 MG VIAL IM PRN (23:01)
[2018-01-21] MEDS ORDERED: MAGNESIUM SULF RIDER 2 GM in PREMIX 1 EACH IV PRN (23:01)
[2018-01-21] MEDS ORDERED: ACETAMINOPHEN 325 MG TABLET PO PRN (23:01)
[2018-01-21] MEDS ORDERED: MAGNESIUM SULF RIDER 4 GM in PREMIX 1 EACH IV PRN (23:01)
[2018-01-22] MEDS ORDERED: ENOXAPARIN 100 MG/ML SYRINGE SUBCUT SCH (02:30)
[2018-01-22 05:44] LABS: Basophils % 0.3 % (0.0-0.8); Eosinophils # 0.2 10*3/uL (0.0-0.87); Eosinophils % 2.5 % (0.00-10.9); Hematocrit 26.8 VOL% (35.7-47.0); Hemoglobin 8.6 GM/DL (12.0-16.0); Immature Granulocytes % 0.6 %; Immature Granulocytes Absolute 0.04 #; Lymphocytes # 1.5 10*3/uL (1.4-4.0); Lymphocytes % 22.6 % (21.3-54.2); Mean Corpuscular HGB Conc 32.1 GM/DL (32-36); Mean Corpuscular Hemoglobin 29 PG (27-34); Mean Corpuscular Volume 89.6 FL (87-102); Mean Platelet Volume 11.5 FL (9.6-12.0); Monocytes # 0.3 10*3/uL (0.11-0.8); Monocytes % 4.9 % (1.7-12.7); Neutrophils # 4.7 10*3/uL (1.4-7.4); Neutrophils % 69.1 % (38.7-73.9); Platelet Count 125 T/CUMM (130-400); Red Blood Count 2.99 MC/CUMM (3.8-5.5); Red Cell Distribution Width 13.9 % (9.3-17.3); White Blood Count 6.7 T/CUMM (4-12)
[2018-01-22 06:50] LABS: Alanine Aminotransferase 20 U/L (13-56); Albumin 2.1 G/DL (3.4-5.0); Alkaline Phosphatase 186 U/L (45-117); Aspartate Amino Transferase 30 U/L (0-37); Bilirubin,Total < 0.39 MG/DL (0.2-1.0); Blood Urea Nitrogen 40 MG/DL (7-18); Calcium 7.3 MG/DL (8.5-10.1); Glucose 180 MG/DL (74-106); Osmolality,Calculated 297.1 MOS/KG (273-304); Potassium 3.8 MMOL/L (3.5-5.1); Sodium 142 MMOL/L (136-145); Total Protein 5.6 G/DL (6.4-8.3)
[2018-01-22] MEDS ORDERED: FUROSEMIDE 40 MG/4 ML VIAL IV SCH (08:00)
[2018-01-22] MEDS ORDERED: PNEUMOCOCCAL VACCINE (23 VALENT) 0.5 ML VIAL IM ONE (09:00)
[2018-01-22] MEDS ORDERED: INFLUENZA VIRUS VACCINE 0.5 ML SYRINGE IM ONE (09:00)
[2018-01-22] MEDS ORDERED: ENOXAPARIN 30 MG/0.3 ML SYRINGE SUBCUT SCH (09:00)
[2018-01-22] MEDS: CARVEDILOL 3.125 MG TABLET PO SCH ×2 (09:31→21:47)
[2018-01-22] MEDS: GABAPENTIN 400 MG CAPSULE PO SCH (09:31)
[2018-01-22] MEDS: ISOSORBIDE MONONITRATE 30 MG TABLET PO SCH (09:31)
[2018-01-22] MEDS: ASPIRIN EC 81 MG TABLET PO SCH (09:31)
[2018-01-22] MEDS: INSULIN LISPRO 100 UNIT/ML SUBCUT SCH ×3 (09:39→18:06)
[2018-01-22] MEDS: INSULIN REGULAR 100 UNIT/ML SUBCUT SCH ×4 (09:39→21:47)
[2018-01-22] MEDS: PANTOPRAZOLE 40 MG TABLET PO SCH (09:43)
[2018-01-22] MEDS: BACLOFEN 10 MG TABLET PO SCH ×3 (09:43→21:47)
[2018-01-22] MEDS: ENOXAPARIN 30 MG/0.3 ML SYRINGE SUBCUT SCH (14:13)
[2018-01-22] MEDS: FUROSEMIDE 40 MG/4 ML VIAL IV SCH (18:02)
[2018-01-22] MEDS: INSULIN GLARGINE 100 UNIT/ML SUBCUT SCH (21:47)
[2018-01-22] MEDS: ATORVASTATIN 40 MG TABLET PO SCH (21:47)
[2018-01-22] MEDS: hydrALAZINE 25 MG TABLET PO SCH (21:47)
[2018-01-23 05:22] LABS: Basophils % 0.5 % (0.0-0.8); Eosinophils # 0.1 10*3/uL (0.0-0.87); Hematocrit 25.8 VOL% (35.7-47.0); Hemoglobin 8.1 GM/DL (12.0-16.0); Immature Granulocytes % 0.5 %; Immature Granulocytes Absolute 0.03 #; Lymphocytes # 1.1 10*3/uL (1.4-4.0); Lymphocytes % 15.9 % (21.3-54.2); Mean Corpuscular HGB Conc 31.4 GM/DL (32-36); Mean Corpuscular Hemoglobin 29 PG (27-34); Mean Corpuscular Volume 92.5 FL (87-102); Mean Platelet Volume 10.5 FL (9.6-12.0); Monocytes # 0.3 10*3/uL (0.11-0.8); Monocytes % 4.9 % (1.7-12.7); Neutrophils % 76.2 % (38.7-73.9); Platelet Count 135 T/CUMM (130-400); Red Blood Count 2.79 MC/CUMM (3.8-5.5); Red Cell Distribution Width 13.8 % (9.3-17.3); White Blood Count 6.6 T/CUMM (4-12)
[2018-01-23 05:24] LABS: Basophils % 0.3 % (0.0-0.8); Eosinophils # 0.2 10*3/uL (0.0-0.87); Eosinophils % 2.3 % (0.00-10.9); Hematocrit 24.9 VOL% (35.7-47.0); Hemoglobin 8.2 GM/DL (12.0-16.0); Immature Granulocytes % 0.5 %; Immature Granulocytes Absolute 0.03 #; Lymphocytes % 14.9 % (21.3-54.2); Mean Corpuscular HGB Conc 32.9 GM/DL (32-36); Mean Corpuscular Hemoglobin 30 PG (27-34); Mean Corpuscular Volume 89.9 FL (87-102); Mean Platelet Volume 10.4 FL (9.6-12.0); Monocytes # 0.3 10*3/uL (0.11-0.8); Monocytes % 5.1 % (1.7-12.7); Neutrophils % 76.9 % (38.7-73.9); Platelet Count 136 T/CUMM (130-400); Red Blood Count 2.77 MC/CUMM (3.8-5.5); Red Cell Distribution Width 13.8 % (9.3-17.3); White Blood Count 6.5 T/CUMM (4-12)
[2018-01-23 05:48] LABS: Calcium 7.2 MG/DL (8.5-10.1); Osmolality,Calculated 292.5 MOS/KG (273-304); Potassium 4.6 MMOL/L (3.5-5.1)
[2018-01-23 06:01] LABS: % Iron Saturation 13.5 % (18-50); Ferritin 85.9 ng/ml (8-252)
[2018-01-23 06:03] LABS: Risk Ratio 2.66; VLDL CHOLESTEROL 13.8 MG/DL
[2018-01-23 06:28] LABS: Folate 10.6 NG/ML (5.4-24.0); Vitamin B12 463 PG/ML (211-911)
[2018-01-23 06:35] LABS: Sedimentation Rate-Westergren 116 MM/HR (0-30)
[2018-01-23] MEDS: ASPIRIN EC 81 MG TABLET PO SCH (08:29)
[2018-01-23] MEDS: ISOSORBIDE MONONITRATE 30 MG TABLET PO SCH (08:29)
[2018-01-23] MEDS: GABAPENTIN 400 MG CAPSULE PO SCH (08:29)
[2018-01-23] MEDS: hydrALAZINE 25 MG TABLET PO SCH ×2 (08:30→21:20)
[2018-01-23] MEDS: BACLOFEN 10 MG TABLET PO SCH ×3 (08:30→21:20)
[2018-01-23] MEDS: INSULIN LISPRO 100 UNIT/ML SUBCUT SCH ×3 (08:30→16:22)
[2018-01-23] MEDS: PANTOPRAZOLE 40 MG TABLET PO SCH (08:30)
[2018-01-23] MEDS: CARVEDILOL 3.125 MG TABLET PO SCH ×2 (08:30→21:20)
[2018-01-23] MEDS: FUROSEMIDE 40 MG/4 ML VIAL IV SCH ×3 (08:31→21:21)
[2018-01-23] MEDS: INSULIN REGULAR 100 UNIT/ML SUBCUT SCH ×4 (08:31→21:32)
[2018-01-23] MEDS: ENOXAPARIN 30 MG/0.3 ML SYRINGE SUBCUT SCH (10:08)
[2018-01-23] MEDS: metOLazone 5 MG TABLET PO SCH (14:05)
[2018-01-23] MEDS: ONDANSETRON 4 MG/2 ML VIAL IV PRN ×2 (16:16→19:40)
[2018-01-23] MEDS: INSULIN GLARGINE 100 UNIT/ML SUBCUT SCH (21:20)
[2018-01-23] MEDS: ATORVASTATIN 40 MG TABLET PO SCH (21:20)
[2018-01-24 05:32] LABS: Basophils % 0.3 % (0.0-0.8); Eosinophils # 0.1 10*3/uL (0.0-0.87); Eosinophils % 1.4 % (0.00-10.9); Hematocrit 28.9 VOL% (35.7-47.0); Hemoglobin 9.3 GM/DL (12.0-16.0); Immature Granulocytes % 1.1 %; Immature Granulocytes Absolute 0.08 #; Lymphocytes # 0.8 10*3/uL (1.4-4.0); Lymphocytes % 11.7 % (21.3-54.2); Mean Corpuscular HGB Conc 32.2 GM/DL (32-36); Mean Corpuscular Hemoglobin 29 PG (27-34); Mean Corpuscular Volume 90.3 FL (87-102); Mean Platelet Volume 10.3 FL (9.6-12.0); Monocytes # 0.4 10*3/uL (0.11-0.8); Monocytes % 4.9 % (1.7-12.7); Neutrophils # 5.8 10*3/uL (1.4-7.4); Neutrophils % 80.6 % (38.7-73.9); Platelet Count 154 T/CUMM (130-400); Red Cell Distribution Width 13.6 % (9.3-17.3); White Blood Count 7.2 T/CUMM (4-12)
[2018-01-24 06:02] LABS: Calcium 7.7 MG/DL (8.5-10.1); Osmolality,Calculated 275.7 MOS/KG (273-304); Potassium 4.7 MMOL/L (3.5-5.1)
[2018-01-24] MEDS: hydrALAZINE 25 MG TABLET PO SCH (09:00)
[2018-01-24] MEDS: FUROSEMIDE 40 MG/4 ML VIAL IV SCH ×2 (09:00→14:28)
[2018-01-24] MEDS: GABAPENTIN 400 MG CAPSULE PO SCH (09:00)
[2018-01-24] MEDS: PANTOPRAZOLE 40 MG TABLET PO SCH (09:00)
[2018-01-24] MEDS: BACLOFEN 10 MG TABLET PO SCH ×2 (09:00→14:35)
[2018-01-24] MEDS: ASPIRIN EC 81 MG TABLET PO SCH (09:00)
[2018-01-24] MEDS: ISOSORBIDE MONONITRATE 30 MG TABLET PO SCH ×2 (09:00→12:25)
[2018-01-24] MEDS: metOLazone 5 MG TABLET PO SCH (09:00)
[2018-01-24] MEDS: CARVEDILOL 3.125 MG TABLET PO SCH (09:00)
[2018-01-24] MEDS: INSULIN REGULAR 100 UNIT/ML SUBCUT SCH ×3 (09:10→17:43)
[2018-01-24] MEDS: INSULIN LISPRO 100 UNIT/ML SUBCUT SCH ×3 (09:10→18:01)
[2018-01-24 10:47] LABS: Hemoglobin A1 (Alkaline) 97.2 % (96.5-98.5); Hemoglobin A2 (Alkaline) 2.8 % (1.5-3.5)
[2018-01-24] MEDS: ENOXAPARIN 30 MG/0.3 ML SYRINGE SUBCUT SCH (12:25)
[2018-01-24] MEDS: ONDANSETRON 4 MG/2 ML VIAL IV PRN (14:28)
[2018-01-24 20:03] LABS: Basophils % 0.2 % (0.0-0.8); Eosinophils # 0.1 10*3/uL (0.0-0.87); Eosinophils % 0.8 % (0.00-10.9); Hemoglobin 8.8 GM/DL (12.0-16.0); Immature Granulocytes % 0.7 %; Immature Granulocytes Absolute 0.06 #; Lymphocytes # 1.1 10*3/uL (1.4-4.0); Lymphocytes % 12.8 % (21.3-54.2); Mean Corpuscular HGB Conc 32.6 GM/DL (32-36); Mean Corpuscular Hemoglobin 29 PG (27-34); Mean Corpuscular Volume 89.1 FL (87-102); Mean Platelet Volume 10.3 FL (9.6-12.0); Monocytes # 0.4 10*3/uL (0.11-0.8); Monocytes % 4.3 % (1.7-12.7); Neutrophils # 6.8 10*3/uL (1.4-7.4); Neutrophils % 81.2 % (38.7-73.9); Platelet Count 170 T/CUMM (130-400); Red Blood Count 3.03 MC/CUMM (3.8-5.5); Red Cell Distribution Width 13.4 % (9.3-17.3); White Blood Count 8.4 T/CUMM (4-12)
[2018-01-24 20:21] LABS: PT Patient Result 10.1 SECS
[2018-01-24 20:40] LABS: Albumin 2.5 G/DL (3.4-5.0); Bilirubin,Total 0.4 MG/DL (0.2-1.0); Calcium 7.5 MG/DL (8.5-10.1); Osmolality,Calculated 274.8 MOS/KG (273-304); Potassium 4.9 MMOL/L (3.5-5.1); Total Protein 6.4 G/DL (6.4-8.3)
[2018-01-24] MEDS ORDERED: ALBUTEROL/IPRATROPIUM 3 ML NEB RESP TX ONE (22:00)
[2018-01-24 22:25] LABS: ABG HCO3 21.9 MMOL/L (20-26); ABG PCO2 42.6 MM HG (35-48); ABG PH 7.337 (7.35-7.45); ABG PO2 69.7 MM HG (80-95); ABG TCO2 20.3 MMOL/L (23-27); Allen Test Positive
[2018-01-24 22:26] LABS: ABG Oxygen Saturation 93.6 % (95-100)
[2018-01-25] MEDS: SODIUM CHLORIDE 0.9% 1,000 ML IV SCH ×2 (01:20→23:37)
[2018-01-25] MEDS: hydrALAZINE 25 MG TABLET PO SCH ×3 (01:21→23:39)
[2018-01-25] MEDS: INSULIN REGULAR 100 UNIT/ML SUBCUT SCH ×5 (01:21→23:38)
[2018-01-25] MEDS: CARVEDILOL 3.125 MG TABLET PO SCH ×3 (01:21→23:38)
[2018-01-25] MEDS: INSULIN GLARGINE 100 UNIT/ML SUBCUT SCH ×2 (01:21→23:38)
[2018-01-25] MEDS: ATORVASTATIN 40 MG TABLET PO SCH ×2 (01:22→23:37)
[2018-01-25] MEDS: BACLOFEN 10 MG TABLET PO SCH ×4 (01:22→23:38)
[2018-01-25] MEDS: FUROSEMIDE 40 MG/4 ML VIAL IV SCH ×4 (01:22→23:56)
[2018-01-25] MEDS: DEXTROSE 50% 25 GM/50 ML VIAL IV PRN ×3 (02:00→22:03)
[2018-01-25] MEDS ORDERED: LACTULOSE 160 GM/240 ML BOTTLE RECTAL PRN (03:13)
[2018-01-25 05:17] LABS: Basophils % 0.4 % (0.0-0.8); Eosinophils # 0.1 10*3/uL (0.0-0.87); Eosinophils % 1.7 % (0.00-10.9); Hematocrit 25.2 VOL% (35.7-47.0); Hemoglobin 8.4 GM/DL (12.0-16.0); Immature Granulocytes % 0.6 %; Immature Granulocytes Absolute 0.04 #; Lymphocytes # 1.4 10*3/uL (1.4-4.0); Lymphocytes % 20.1 % (21.3-54.2); Mean Corpuscular HGB Conc 33.3 GM/DL (32-36); Mean Corpuscular Hemoglobin 29 PG (27-34); Mean Corpuscular Volume 87.2 FL (87-102); Mean Platelet Volume 11.3 FL (9.6-12.0); Monocytes # 0.5 10*3/uL (0.11-0.8); Monocytes % 6.4 % (1.7-12.7); Neutrophils % 70.8 % (38.7-73.9); Platelet Count 139 T/CUMM (130-400); Red Blood Count 2.89 MC/CUMM (3.8-5.5); Red Cell Distribution Width 13.6 % (9.3-17.3); White Blood Count 7.1 T/CUMM (4-12)
[2018-01-25 05:27] LABS: Calcium 7.4 MG/DL (8.5-10.1); Calcium 7.9 MG/DL (8.5-10.1); Osmolality,Calculated 272.8 MOS/KG (273-304); Osmolality,Calculated 273.8 MOS/KG (273-304); Potassium 4.6 MMOL/L (3.5-5.1)
[2018-01-25] MEDS ORDERED: LACTULOSE 160 GM/240 ML BOTTLE RECTAL SCH (10:00)
[2018-01-25] MEDS: ISOSORBIDE MONONITRATE 30 MG TABLET PO SCH (11:11)
[2018-01-25] MEDS: INSULIN LISPRO 100 UNIT/ML SUBCUT SCH ×3 (11:11→17:23)
[2018-01-25] MEDS: ASPIRIN EC 81 MG TABLET PO SCH (11:11)
[2018-01-25] MEDS: metOLazone 5 MG TABLET PO SCH (11:12)
[2018-01-25] MEDS: ENOXAPARIN 30 MG/0.3 ML SYRINGE SUBCUT SCH (11:12)
[2018-01-25] MEDS: PANTOPRAZOLE 40 MG TABLET PO SCH (11:12)
[2018-01-25 11:19] LABS: Amorphous Crystals,Urine Occasional /HPF (Few); Apearance,Urine Slightly Hazy (Clear); Bacteria,Urine Occasional /HPF (Few); Bilirubin,Urine Negative (Negative); Blood, Urine Large mg/dL (Negative); Glucose,Urine (UA) 50 mg/dL (Negative); Ketones,Urine Negative (Negative); Mucus,Urine Occasional /LPF (Occasional); Nitrite,Urine Negative (Negative); Protein,Urine >=500 MG/DL; RBC,Urine 458 /HPF (0-4); Squamous Epithelial Cell,Urine Occasional /HPF (0-10); Urine Color Yellow (Yellow); Urine Urobilinogen < 2.0 EU/DL (0.2-1.0); WBC,Urine 65 /HPF (0-6)
[2018-01-25] MEDS: LACTULOSE 20 GM/30 ML UDCUP PO SCH ×2 (17:21→23:56)
[2018-01-25] MEDS ORDERED: hydrALAZINE 20 MG/1 ML VIAL IV PRN (18:13)
[2018-01-25 18:20] LABS: Hematocrit 28.7 VOL% (35.7-47.0); Hemoglobin 9.6 GM/DL (12.0-16.0)
[2018-01-25 18:27] LABS: INR 0.9
[2018-01-25 18:55] LABS: Albumin 2.5 G/DL (3.4-5.0)
[2018-01-25 18:57] LABS: Bilirubin,Direct 0.15 MG/DL (0.0-0.20)
[2018-01-25 19:00] LABS: Bilirubin,Indirect 0.3 MG/DL (0.0-1.0); Bilirubin,Total 0.4 MG/DL (0.2-1.0); Total Protein 6.5 G/DL (6.4-8.3)
[2018-01-25 21:47] LABS: Hematocrit 28.9 VOL% (35.7-47.0); Hemoglobin 9.9 GM/DL (12.0-16.0)
[2018-01-25] MEDS: PANTOPRAZOLE 40 MG VIAL IV SCH (23:56)
[2018-01-26] MEDS: NITROGLYCERIN 2% OINT 1 INCH/GM PACK TOP SCH ×4 (02:03→18:49)
[2018-01-26 02:57] LABS: Basophils % 0.1 % (0.0-0.8); Eosinophils % 0.1 % (0.00-10.9); Hematocrit 24.8 VOL% (35.7-47.0); Hemoglobin 8.4 GM/DL (12.0-16.0); Hemoglobin 8.5 GM/DL (12.0-16.0); Immature Granulocytes % 0.4 %; Immature Granulocytes Absolute 0.04 #; Lymphocytes # 0.8 10*3/uL (1.4-4.0); Mean Corpuscular HGB Conc 33.6 GM/DL (32-36); Mean Corpuscular Hemoglobin 29 PG (27-34); Mean Corpuscular Volume 86.2 FL (87-102); Mean Platelet Volume 10.6 FL (9.6-12.0); Monocytes # 0.6 10*3/uL (0.11-0.8); Monocytes % 5.6 % (1.7-12.7); Neutrophils # 9.4 10*3/uL (1.4-7.4); Neutrophils % 86.8 % (38.7-73.9); Platelet Count 187 T/CUMM (130-400); Red Cell Distribution Width 13.6 % (9.3-17.3); White Blood Count 10.8 T/CUMM (4-12)
[2018-01-26 03:25] LABS: Calcium 7.6 MG/DL (8.5-10.1); Osmolality,Calculated 277.7 MOS/KG (273-304); Potassium 4.5 MMOL/L (3.5-5.1)
[2018-01-26 03:27] LABS: Calcium 7.6 MG/DL (8.5-10.1); Osmolality,Calculated 277.7 MOS/KG (273-304); Potassium 4.5 MMOL/L (3.5-5.1)
[2018-01-26 05:01] LABS: Hematocrit 27.6 VOL% (35.7-47.0); Hemoglobin 9.4 GM/DL (12.0-16.0)
[2018-01-26] MEDS: LACTULOSE 20 GM/30 ML UDCUP PO SCH ×4 (05:54→23:10)
[2018-01-26] MEDS: INSULIN REGULAR 100 UNIT/ML SUBCUT SCH ×3 (08:58→17:34)
[2018-01-26] MEDS: INSULIN LISPRO 100 UNIT/ML SUBCUT SCH ×3 (08:59→17:34)
[2018-01-26 09:11] LABS: Hematocrit 26.2 VOL% (35.7-47.0); Hemoglobin 9.2 GM/DL (12.0-16.0)
[2018-01-26] MEDS: PANTOPRAZOLE 40 MG VIAL IV SCH ×2 (09:41→22:50)
[2018-01-26] MEDS: FUROSEMIDE 40 MG/4 ML VIAL IV SCH ×3 (09:42→22:50)
[2018-01-26] MEDS: metOLazone 5 MG TABLET PO SCH (09:44)
[2018-01-26] MEDS: CARVEDILOL 3.125 MG TABLET PO SCH ×2 (09:44→22:50)
[2018-01-26] MEDS: hydrALAZINE 25 MG TABLET PO SCH ×2 (09:44→22:50)
[2018-01-26] MEDS: BACLOFEN 10 MG TABLET PO SCH ×2 (09:46→15:28)
[2018-01-26] MEDS: ASPIRIN 300 MG SUPP RECTAL SCH (09:53)
[2018-01-26] MEDS: ENOXAPARIN 30 MG/0.3 ML SYRINGE SUBCUT SCH (11:16)
[2018-01-26] MEDS: DEXTROSE 50% 25 GM/50 ML VIAL IV PRN (17:21)
[2018-01-26] MEDS: SODIUM CHLORIDE 0.9% 1,000 ML IV SCH (20:20)
[2018-01-26] MEDS: ATORVASTATIN 40 MG TABLET PO SCH (22:50)
[2018-01-27] MEDS: INSULIN GLARGINE 100 UNIT/ML SUBCUT SCH ×2 (00:26→22:18)
[2018-01-27] MEDS: INSULIN REGULAR 100 UNIT/ML SUBCUT SCH ×5 (00:26→22:18)
[2018-01-27] MEDS: BACLOFEN 10 MG TABLET PO SCH ×4 (00:27→22:18)
[2018-01-27] MEDS: NITROGLYCERIN 2% OINT 1 INCH/GM PACK TOP SCH ×4 (03:08→17:10)
[2018-01-27 05:29] LABS: Basophils % 0.2 % (0.0-0.8); Eosinophils % 0.3 % (0.00-10.9); Hematocrit 25.9 VOL% (35.7-47.0); Hemoglobin 8.8 GM/DL (12.0-16.0); Immature Granulocytes % 0.6 %; Immature Granulocytes Absolute 0.05 #; Lymphocytes # 0.9 10*3/uL (1.4-4.0); Lymphocytes % 10.1 % (21.3-54.2); Mean Corpuscular Hemoglobin 29 PG (27-34); Mean Corpuscular Volume 85.8 FL (87-102); Mean Platelet Volume 11.3 FL (9.6-12.0); Monocytes # 0.7 10*3/uL (0.11-0.8); Monocytes % 7.4 % (1.7-12.7); Neutrophils # 7.3 10*3/uL (1.4-7.4); Neutrophils % 81.4 % (38.7-73.9); Platelet Count 166 T/CUMM (130-400); Red Blood Count 3.02 MC/CUMM (3.8-5.5); Red Cell Distribution Width 13.8 % (9.3-17.3)
[2018-01-27 05:36] LABS: Calcium 8.3 MG/DL (8.5-10.1); Osmolality,Calculated 278.5 MOS/KG (273-304); Potassium 4.4 MMOL/L (3.5-5.1)
[2018-01-27] MEDS: LACTULOSE 20 GM/30 ML UDCUP PO SCH ×3 (06:20→17:08)
[2018-01-27] MEDS: INSULIN LISPRO 100 UNIT/ML SUBCUT SCH ×3 (08:39→16:25)
[2018-01-27] MEDS ORDERED: CLINDAMYCIN INJ 900 MG in PREMIX 1 EACH IV ONE (09:00)
[2018-01-27] MEDS: ASPIRIN 300 MG SUPP RECTAL SCH (10:00)
[2018-01-27] MEDS: CARVEDILOL 3.125 MG TABLET PO SCH ×2 (10:00→22:17)
[2018-01-27] MEDS: hydrALAZINE 25 MG TABLET PO SCH ×2 (10:00→22:17)
[2018-01-27] MEDS: metOLazone 5 MG TABLET PO SCH (10:01)
[2018-01-27] MEDS: FUROSEMIDE 40 MG/4 ML VIAL IV SCH ×3 (10:05→22:17)
[2018-01-27] MEDS: PANTOPRAZOLE 40 MG VIAL IV SCH ×2 (10:15→22:17)
[2018-01-27] MEDS ORDERED: LIDOCAINE 1%/EPI INJ 20 ML VIAL ONE (10:28)
[2018-01-27] MEDS ORDERED: HEPARIN 5,000 UNIT/1 ML VIAL ONE (10:28)
[2018-01-27] MEDS ORDERED: BUPIVACAINE 0.25% 50 ML VIAL ONE (10:28)
[2018-01-27] MEDS: ENOXAPARIN 30 MG/0.3 ML SYRINGE SUBCUT SCH (10:55)
[2018-01-27] MEDS: SODIUM CHLORIDE 0.9% 250 ML IV SCH (11:02)
[2018-01-27 11:25] LABS: Total Protein (Chem) 6.3 G/DL (6.4-8.3)
[2018-01-27 11:27] LABS: Albumin (SPE) 2.7 G/DL (3.2-5.3)
[2018-01-27 11:28] LABS: Albumin (SPE) Rel % 42.5 %; Alpha 1 (SPE) 0.3 G/DL (0.1-0.4); Alpha 1 (SPE) Rel % 4.3 %; Alpha 2 (SPE) 0.9 G/DL (0.4-1.0); Alpha 2 (SPE) Rel % 15.3 %; Beta (SPE) 0.8 G/DL (0.5-1.1); Beta (SPE) Rel % 12.8 %; Gamma (SPE) 1.6 G/DL (0.7-1.7); Gamma (SPE) Rel % 25.1 %
[2018-01-27 11:30] LABS: Random Urine Protein (Bench) 103 MG/DL (<11.9)
[2018-01-27] MEDS ORDERED: MIDAZOLAM 2 MG/2 ML VIAL ONE (12:27)
[2018-01-27] MEDS ORDERED: fentaNYL 100 MCG/2 ML VIAL ONE (12:27)
[2018-01-27] MEDS ORDERED: HEPARIN 10,000 UNIT/10 ML VIAL IV PRN (13:32)
[2018-01-27 13:48] LABS: Hepatitis A Ab IgM Quant 0.08 Index; Hepatitis A Ab IgM Result Negative (Negative); Hepatitis B Core IgM Quant 0.17 Index; Hepatitis B Core IgM Result Negative (Negative); Hepatitis B Surface Ag Quant < 0.10 Index; Hepatitis B Surface Ag Result Negative (Negative); Hepatitis C Virus Ab Quant 0.09 Index; Hepatitis C Virus Ab Result Negative (Negative)
[2018-01-27] MEDS ORDERED: SODIUM CHLORIDE 0.9% 100 ML IV ONE (22:10)
[2018-01-27] MEDS: ATORVASTATIN 40 MG TABLET PO SCH (22:17)
[2018-01-27] MEDS: SODIUM CHLORIDE 0.9% 1,000 ML IV SCH (22:18)
[2018-01-28] MEDS: LACTULOSE 20 GM/30 ML UDCUP PO SCH ×4 (02:26→17:02)
[2018-01-28] MEDS: SODIUM CHLORIDE 0.9% 250 ML IV SCH ×2 (02:26→12:08)
[2018-01-28] MEDS: NITROGLYCERIN 2% OINT 1 INCH/GM PACK TOP SCH ×3 (02:26→12:06)
[2018-01-28 04:07] LABS: Basophils % 0.2 % (0.0-0.8); Eosinophils % 0.4 % (0.00-10.9); Hematocrit 26.8 VOL% (35.7-47.0); Immature Granulocytes % 0.5 %; Immature Granulocytes Absolute 0.05 #; Lymphocytes # 0.8 10*3/uL (1.4-4.0); Mean Corpuscular HGB Conc 33.6 GM/DL (32-36); Mean Corpuscular Hemoglobin 29 PG (27-34); Mean Corpuscular Volume 86.2 FL (87-102); Mean Platelet Volume 10.7 FL (9.6-12.0); Monocytes # 0.7 10*3/uL (0.11-0.8); Neutrophils # 8.8 10*3/uL (1.4-7.4); Neutrophils % 83.9 % (38.7-73.9); Platelet Count 194 T/CUMM (130-400); Red Blood Count 3.11 MC/CUMM (3.8-5.5); Red Cell Distribution Width 13.8 % (9.3-17.3); White Blood Count 10.5 T/CUMM (4-12)
[2018-01-28 04:42] LABS: Calcium 7.9 MG/DL (8.5-10.1); Potassium 4.1 MMOL/L (3.5-5.1)
[2018-01-28 07:20] LABS: Bilirubin,Total 0.6 MG/DL (0.2-1.0); Calcium 7.8 MG/DL (8.5-10.1); Potassium 4.1 MMOL/L (3.5-5.1); Total Protein 5.8 G/DL (6.4-8.3)
[2018-01-28] MEDS: INSULIN REGULAR 100 UNIT/ML SUBCUT SCH ×4 (07:44→22:09)
[2018-01-28] MEDS: INSULIN LISPRO 100 UNIT/ML SUBCUT SCH ×3 (07:44→16:10)
[2018-01-28] MEDS: metOLazone 5 MG TABLET PO SCH (08:18)
[2018-01-28] MEDS: CARVEDILOL 3.125 MG TABLET PO SCH (08:18)
[2018-01-28] MEDS: BACLOFEN 10 MG TABLET PO SCH ×3 (08:18→22:10)
[2018-01-28] MEDS: hydrALAZINE 25 MG TABLET PO SCH ×2 (08:18→22:09)
[2018-01-28] MEDS: PANTOPRAZOLE 40 MG VIAL IV SCH ×2 (08:19→22:10)
[2018-01-28] MEDS: FUROSEMIDE 40 MG/4 ML VIAL IV SCH ×3 (08:21→22:10)
[2018-01-28] MEDS ORDERED: EPOETIN ALFA 2,000 UNIT/1 ML VIAL IV PRN (09:19)
[2018-01-28] MEDS: ASPIRIN 300 MG SUPP RECTAL SCH (10:17)
[2018-01-28] MEDS: ENOXAPARIN 30 MG/0.3 ML SYRINGE SUBCUT SCH (12:02)
[2018-01-28 12:47] LABS: Immuno Free Light Chain Kappa 17.46 MG/DL (0.33-1.94); Immuno Free Light Chain Lambda 9.76 MG/DL (0.57-2.63); Immuno Free Light Chain Ratio 1.79 MG/DL (0.26-1.65)
[2018-01-28] MEDS ORDERED: SODIUM CHLORIDE 0.9% 100 ML IV ONE (22:02)
[2018-01-28] MEDS: INSULIN GLARGINE 100 UNIT/ML SUBCUT SCH (22:09)
[2018-01-28] MEDS: CARVEDILOL 6.25 MG TABLET PO SCH (22:09)
[2018-01-28] MEDS: ATORVASTATIN 40 MG TABLET PO SCH (22:09)
[2018-01-29] MEDS: SODIUM CHLORIDE 0.9% 1,000 ML IV SCH ×2 (00:55→23:26)
[2018-01-29] MEDS: SODIUM CHLORIDE 0.9% 250 ML IV SCH ×2 (00:57→13:27)
[2018-01-29] MEDS: LACTULOSE 20 GM/30 ML UDCUP PO SCH ×4 (02:49→18:21)
[2018-01-29 05:38] LABS: Basophils % 0.3 % (0.0-0.8); Eosinophils % 0.3 % (0.00-10.9); Hematocrit 29.1 VOL% (35.7-47.0); Hemoglobin 9.7 GM/DL (12.0-16.0); Immature Granulocytes % 1.2 %; Immature Granulocytes Absolute 0.14 #; Lymphocytes % 8.9 % (21.3-54.2); Mean Corpuscular HGB Conc 33.3 GM/DL (32-36); Mean Corpuscular Hemoglobin 30 PG (27-34); Mean Corpuscular Volume 88.4 FL (87-102); Mean Platelet Volume 10.7 FL (9.6-12.0); Monocytes # 0.9 10*3/uL (0.11-0.8); Monocytes % 7.8 % (1.7-12.7); Neutrophils # 9.4 10*3/uL (1.4-7.4); Neutrophils % 81.5 % (38.7-73.9); Platelet Count 200 T/CUMM (130-400); Red Blood Count 3.29 MC/CUMM (3.8-5.5); Red Cell Distribution Width 13.8 % (9.3-17.3); White Blood Count 11.6 T/CUMM (4-12)
[2018-01-29 05:55] LABS: Calcium 7.9 MG/DL (8.5-10.1); Osmolality,Calculated 278.7 MOS/KG (273-304); Potassium 3.7 MMOL/L (3.5-5.1)
[2018-01-29 06:00] LABS: Bilirubin,Total 0.7 MG/DL (0.2-1.0); Osmolality,Calculated 276.8 MOS/KG (273-304); Potassium 3.7 MMOL/L (3.5-5.1); Total Protein 6.2 G/DL (6.4-8.3)
[2018-01-29] MEDS ORDERED: DEXTROSE 50% 25 GM/50 ML VIAL IV PRN (08:06)
[2018-01-29] MEDS ORDERED: GLUCAGON 1 MG VIAL IM PRN (08:06)
[2018-01-29] MEDS: INSULIN REGULAR 100 UNIT/ML SUBCUT SCH ×4 (09:28→22:25)
[2018-01-29] MEDS: INSULIN LISPRO 100 UNIT/ML SUBCUT SCH ×3 (09:29→16:10)
[2018-01-29] MEDS: PANTOPRAZOLE 40 MG VIAL IV SCH ×2 (09:34→22:20)
[2018-01-29] MEDS: ASPIRIN 300 MG SUPP RECTAL SCH (09:34)
[2018-01-29] MEDS: BACLOFEN 10 MG TABLET PO SCH ×3 (09:35→22:21)
[2018-01-29] MEDS: ISOSORBIDE MONONITRATE 30 MG TABLET PO SCH (09:35)
[2018-01-29] MEDS: hydrALAZINE 25 MG TABLET PO SCH ×3 (09:35→22:21)
[2018-01-29] MEDS: CARVEDILOL 6.25 MG TABLET PO SCH (09:35)
[2018-01-29] MEDS: ENOXAPARIN 30 MG/0.3 ML SYRINGE SUBCUT SCH (11:11)
[2018-01-29] MEDS: CARVEDILOL 12.5 MG TABLET PO SCH (22:21)
[2018-01-29] MEDS: ATORVASTATIN 40 MG TABLET PO SCH (22:21)
[2018-01-29] MEDS: INSULIN GLARGINE 100 UNIT/ML SUBCUT SCH (22:26)
[2018-01-30] MEDS: LACTULOSE 20 GM/30 ML UDCUP PO SCH ×4 (01:36→17:52)
[2018-01-30] MEDS: SODIUM CHLORIDE 0.9% 250 ML IV SCH (01:53)
[2018-01-30 05:13] LABS: Basophils % 0.4 % (0.0-0.8); Eosinophils # 0.1 10*3/uL (0.0-0.87); Hemoglobin 9.4 GM/DL (12.0-16.0); Immature Granulocytes % 0.7 %; Immature Granulocytes Absolute 0.08 #; Lymphocytes # 1.2 10*3/uL (1.4-4.0); Lymphocytes % 10.9 % (21.3-54.2); Mean Corpuscular HGB Conc 33.6 GM/DL (32-36); Mean Corpuscular Hemoglobin 29 PG (27-34); Mean Corpuscular Volume 86.2 FL (87-102); Mean Platelet Volume 10.4 FL (9.6-12.0); Neutrophils # 8.4 10*3/uL (1.4-7.4); Platelet Count 207 T/CUMM (130-400); Red Blood Count 3.25 MC/CUMM (3.8-5.5); Red Cell Distribution Width 13.7 % (9.3-17.3); White Blood Count 10.8 T/CUMM (4-12)
[2018-01-30 05:55] LABS: Calcium 7.7 MG/DL (8.5-10.1); Osmolality,Calculated 276.8 MOS/KG (273-304); Potassium 3.3 MMOL/L (3.5-5.1)
[2018-01-30] MEDS: PANTOPRAZOLE 40 MG VIAL IV SCH (09:05)
[2018-01-30] MEDS: ASPIRIN 300 MG SUPP RECTAL SCH (09:06)
[2018-01-30] MEDS: INSULIN REGULAR 100 UNIT/ML SUBCUT SCH ×4 (09:06→20:56)
[2018-01-30] MEDS: ISOSORBIDE MONONITRATE 30 MG TABLET PO SCH (09:06)
[2018-01-30] MEDS: BACLOFEN 10 MG TABLET PO SCH ×3 (09:06→22:47)
[2018-01-30] MEDS: hydrALAZINE 25 MG TABLET PO SCH ×3 (09:06→22:48)
[2018-01-30] MEDS: CARVEDILOL 12.5 MG TABLET PO SCH ×2 (09:06→22:48)
[2018-01-30] MEDS: INSULIN LISPRO 100 UNIT/ML SUBCUT SCH ×3 (09:07→16:20)
[2018-01-30] MEDS: ENOXAPARIN 30 MG/0.3 ML SYRINGE SUBCUT SCH (11:56)
[2018-01-30] MEDS: POTASSIUM CHLORIDE 20 MEQ TABLET PO PRN ×4 (13:31→22:48)
[2018-01-30] MEDS: INSULIN GLARGINE 100 UNIT/ML SUBCUT SCH (20:56)
[2018-01-30] MEDS: PANTOPRAZOLE 40 MG TABLET PO SCH (22:47)
[2018-01-30] MEDS: ATORVASTATIN 40 MG TABLET PO SCH (22:47)
[2018-01-31] MEDS: LACTULOSE 20 GM/30 ML UDCUP PO SCH ×3 (00:10→11:45)
[2018-01-31 05:00] LABS: Basophils % 0.4 % (0.0-0.8); Eosinophils # 0.2 10*3/uL (0.0-0.87); Eosinophils % 2.4 % (0.00-10.9); Hematocrit 26.7 VOL% (35.7-47.0); Hemoglobin 8.9 GM/DL (12.0-16.0); Immature Granulocytes % 0.5 %; Immature Granulocytes Absolute 0.04 #; Lymphocytes # 1.3 10*3/uL (1.4-4.0); Lymphocytes % 15.4 % (21.3-54.2); Mean Corpuscular HGB Conc 33.3 GM/DL (32-36); Mean Corpuscular Hemoglobin 29 PG (27-34); Mean Corpuscular Volume 87.5 FL (87-102); Mean Platelet Volume 10.5 FL (9.6-12.0); Monocytes # 0.7 10*3/uL (0.11-0.8); Monocytes % 8.1 % (1.7-12.7); Neutrophils % 73.2 % (38.7-73.9); Platelet Count 187 T/CUMM (130-400); Red Blood Count 3.05 MC/CUMM (3.8-5.5); Red Cell Distribution Width 13.7 % (9.3-17.3); White Blood Count 8.2 T/CUMM (4-12)
[2018-01-31 05:43] LABS: Bilirubin,Total 0.5 MG/DL (0.2-1.0); Calcium 7.7 MG/DL (8.5-10.1); Osmolality,Calculated 278.8 MOS/KG (273-304); Potassium 4.2 MMOL/L (3.5-5.1); Total Protein 5.7 G/DL (6.4-8.3)
[2018-01-31] MEDS: INSULIN REGULAR 100 UNIT/ML SUBCUT SCH ×3 (07:54→17:09)
[2018-01-31] MEDS: INSULIN LISPRO 100 UNIT/ML SUBCUT SCH ×3 (07:55→17:09)
[2018-01-31] MEDS: hydrALAZINE 25 MG TABLET PO SCH ×2 (08:33→16:16)
[2018-01-31] MEDS: ISOSORBIDE MONONITRATE 30 MG TABLET PO SCH (08:33)
[2018-01-31] MEDS: PANTOPRAZOLE 40 MG TABLET PO SCH (08:33)
[2018-01-31] MEDS: CARVEDILOL 12.5 MG TABLET PO SCH (08:33)
[2018-01-31] MEDS: BACLOFEN 10 MG TABLET PO SCH ×2 (08:33→16:15)
[2018-01-31] MEDS ORDERED: ASPIRIN EC 325 MG TABLET PO SCH (09:00)
[2018-01-31] MEDS: ENOXAPARIN 30 MG/0.3 ML SYRINGE SUBCUT SCH (11:44)
[2018-01-31 15:59] VITALS: BP 138/65
== END 2018-01-31 17:20 | disposition swing bed (61) | DRG 291 ==
LOC: N.TELES 22:33 → SUATTDRO 22:33
PROVIDERS: ADMIT Internal Medicine

== ENCOUNTER 2018-10-30 01:27 | Inpatient (IN) ==
[2018-10-30] MEDS ORDERED: VANCOMYCIN INJ 1,250 MG in SODIUM CHLORIDE 0.9% 250 ML IV STA (01:47)
[2018-10-30] MEDS ORDERED: CEFEPIME 2,000 MG in SODIUM CHLORIDE 0.9% 100 ML IV STA (01:47)
[2018-10-30] MEDS ORDERED: SODIUM PHOSPHATE ENEMA 133 ML BOTTLE RECTAL STA (02:14)
[2018-10-30 02:23] LABS: Basophils % 0.3 % (0.0-0.8); Eosinophils % 0.5 % (0.00-10.9); Immature Granulocytes % 0.3 %; Immature Granulocytes Absolute 0.02 #; Lymphocytes # 0.6 10*3/uL (1.4-4.0); Lymphocytes % 8.4 % (21.3-54.2); Mean Corpuscular HGB Conc 32.5 GM/DL (32-36); Mean Corpuscular Hemoglobin 31 PG (27-34); Mean Platelet Volume 10.1 FL (9.6-12.0); Monocytes # 0.2 10*3/uL (0.11-0.8); Neutrophils # 6.4 10*3/uL (1.4-7.4); Neutrophils % 87.5 % (38.7-73.9); Platelet Count 166 T/CUMM (130-400); Red Blood Count 4.21 MC/CUMM (3.8-5.5); Red Cell Distribution Width 14.5 % (9.3-17.3); White Blood Count 7.3 T/CUMM (4-12)
[2018-10-30 02:43] LABS: Albumin 3.5 G/DL (3.4-5.0); Bilirubin,Total 0.7 MG/DL (0.2-1.0); Calcium 8.5 MG/DL (8.5-10.1); Lactic Acid 1.1 MMOL/L (0.4-2.0); Osmolality,Calculated 293.8 MOS/KG (273-304); Potassium 4.9 MMOL/L (3.5-5.1); Total Protein 8.2 G/DL (6.4-8.3)
[2018-10-30] MEDS ORDERED: DOCUSATE SODIUM 100 MG CAPSULE PO PRN (03:54)
[2018-10-30] MEDS ORDERED: ACETAMINOPHEN 325 MG TABLET PO PRN (03:54)
[2018-10-30] MEDS ORDERED: ONDANSETRON 4 MG/2 ML VIAL IV PRN (03:54)
[2018-10-30] MEDS ORDERED: GLUCAGON 1 MG VIAL IM PRN (08:05)
[2018-10-30] MEDS ORDERED: DEXTROSE 50% 25 GM/50 ML VIAL IV PRN (08:05)
[2018-10-30] MEDS ORDERED: VANCOMYCIN INJ 500 MG in SODIUM CHLORIDE 0.9% 100 ML IV ONE (09:00)
[2018-10-30] MEDS: INSULIN LISPRO 100 UNIT/ML SUBCUT SCH ×3 (11:35→21:09)
[2018-10-30] MEDS: CARVEDILOL 3.125 MG TABLET PO SCH (17:12)
[2018-10-30] MEDS ORDERED: ATORVASTATIN 40 MG TABLET PO SCH (21:00)
[2018-10-30] MEDS ORDERED: INSULIN GLARGINE 100 UNIT/ML SUBCUT SCH (21:00)
[2018-10-31 06:14] LABS: Basophils # 0.1 10*3/uL (0.0-0.2); Basophils % 0.6 % (0.0-0.8); Immature Granulocytes % 0.3 %; Immature Granulocytes Absolute 0.02 #; Mean Platelet Volume 11.1 FL (9.6-12.0)
[2018-10-31 06:27] LABS: Calcium 7.8 MG/DL (8.5-10.1); Osmolality,Calculated 283.5 MOS/KG (273-304); Potassium 4.8 MMOL/L (3.5-5.1)
[2018-10-31 06:32] LABS: Eosinophils # 0.4 10*3/uL (0.0-0.87); Eosinophils % 5.4 % (0.00-10.9); Hematocrit 32.8 VOL% (35.7-47.0); Lymphocytes # 1.9 10*3/uL (1.4-4.0); Mean Corpuscular HGB Conc 30.5 GM/DL (32-36); Mean Corpuscular Hemoglobin 30 PG (27-34); Mean Corpuscular Volume 97.9 FL (87-102); Monocytes # 0.8 10*3/uL (0.11-0.8); Monocytes % 10.2 % (1.7-12.7); Neutrophils # 4.6 10*3/uL (1.4-7.4); Neutrophils % 59.5 % (38.7-73.9); Red Cell Distribution Width 14.5 % (9.3-17.3); White Blood Count 7.7 T/CUMM (4-12)
[2018-10-31 06:34] LABS: Platelet Count 122 T/CUMM (130-400); Red Blood Count 3.35 MC/CUMM (3.8-5.5)
[2018-10-31] MEDS: INSULIN LISPRO 100 UNIT/ML SUBCUT SCH ×2 (07:45→12:10)
[2018-10-31] MEDS ORDERED: GABAPENTIN 400 MG CAPSULE PO SCH (09:00)
[2018-10-31] MEDS ORDERED: ASPIRIN EC 325 MG TABLET PO SCH (09:00)
[2018-10-31] MEDS: CARVEDILOL 3.125 MG TABLET PO SCH (10:14)
[2018-10-31] MEDS ORDERED: VANCOMYCIN INJ 1,250 MG in SODIUM CHLORIDE 0.9% 250 ML IV PRN (12:00)
[2018-10-31 12:03] VITALS: BP 120/68
[2018-10-31] MEDS ORDERED: VANCOMYCIN INJ 750 MG in SODIUM CHLORIDE 0.9% 250 ML IV ONE (15:00)
== END 2018-10-31 16:43 | disposition home or self-care (01) | DRG 314 ==
LOC: EDUNIT# → EDBD → N.ED 01:27 → N.EDINP 03:53 → N.3E 04:11
PROVIDERS: ADMIT Internal Medicine; ATTEND Internal Medicine